=== PATIENT | female | born 1985 | race Two or more races ===

== ENCOUNTER 2020-05-24 13:34 | Outpatient (REF) | payer OTHER, SELFPAY ==
[2020-05-24 14:05] LABS: MANUAL DIFF FLAG NO
[2020-05-24 14:18] LABS: Basophils Absolute Auto 0.1 X10*3/uL (0.0-0.2); Basophils Percent Auto 0.6 % (0-2); Eosinophils Absolute Auto 0.1 X10*3/uL (0.0-0.4); Eosinophils Percent Auto 0.9 % (0-4); Hematocrit 39.4 % (37-47); Hemoglobin 12.3 g/dl (12.0-16.0); Imm Gran Abs Auto 0.03 X10*3/uL (0.00-0.03); Imm Gran Pct Auto 0.3 % (0.0-0.4); Lymphocytes Absolute Auto 2.9 X10*3/uL (1.2-4.9); Mean Corpuscular HGB Conc 31.2 g/dl (31.0-35.0); Mean Corpuscular Hemoglobin 26.9 pg (27.0-33.0); Mean Platelet Volume 9.9 fL (9.4-12.3); Monocytes Absolute Auto 0.6 X10*3/uL (0.1-1.2); Monocytes Percent Auto 6.3 % (2-11); Neutrophils Absolute Auto 5.7 X10*3/uL (2.0-8.3); Neutrophils Percent Auto 60.9 % (45-73); Platelet Count 313 X10*3/uL (160-400); Red Blood Count 4.58 X10*6/uL (4.20-5.50); Red Cell Distribution Width 12.9 % (11.0-16.0); White Blood Count 9.3 X10*3/uL (4.8-10.8)
[2020-05-24 14:53] LABS: Alanine Aminotransferase 9 U/L (0-31); Albumin Level 3.9 g/dL (3.5-5.0); Alkaline Phosphatase 64 U/L (39-117); Anion Gap 11 (12-20); Aspartate Amino Transferase 10 U/L (5-31); Bilirubin Total 0.3 mg/dL (0.0-1.0); Blood Urea Nitrogen 12 mg/dL (9-16); C Reactive Protein 2.23 mg/dL (< or = 0.50); Calcium 8.6 mg/dL (8.4-10.2); Carbon Dioxide 28 mmol/L (22-29); Chloride 103 mmol/L (96-108); Estimated Glomerular Filt Rate > 60; Glucose Random 110 mg/dL (60-115); Potassium 3.7 mmol/l (3.3-5.1); Sodium 138 mmol/L (135-145); Total Protein 7.7 g/dL (6.5-8.0)
== END 2020-05-24 13:35 | disposition home or self-care (01) ==
LOC: HO.LAB 13:34
PROVIDERS: PCP Internal Medicine; Visit Provider Student in an Organized Health Care Education/Training Program
DX: M05.9 Rheumatoid arthritis with rheumatoid factor, unspecified (principal); R76.8 Other specified abnormal immunological findings in serum
CPT/HCPCS: 36415; 80053; 85025; 86140

== ENCOUNTER → 2020-05-25 07:57 | Outpatient (BNVA) | payer OTHER, SELFPAY | PROVIDERS: PCP Internal Medicine; Referring Provider Internal Medicine; Visit Provider Student in an Organized Health Care Education/Training Program | DX: Z76.89 Persons encountering health services in other specified circumstances (principal) ==

== ENCOUNTER 2020-08-23 13:21 | Outpatient (REF) | payer OTHER, SELFPAY ==
[2020-08-23 14:25] LABS: MANUAL DIFF FLAG NO
[2020-08-23 14:32] LABS: Basophils Percent Auto 0.2 % (0-2); Eosinophils Percent Auto 0.4 % (0-4); Hematocrit 40.3 % (37-47); Hemoglobin 12.6 g/dl (12.0-16.0); Imm Gran Abs Auto 0.01 X10*3/uL (0.00-0.03); Imm Gran Pct Auto 0.2 % (0.0-0.4); Lymphocytes Absolute Auto 2.6 X10*3/uL (1.2-4.9); Lymphocytes Percent Auto 47.4 % (20-40); Mean Corpuscular HGB Conc 31.3 g/dl (31.0-35.0); Mean Corpuscular Hemoglobin 26.9 pg (27.0-33.0); Mean Corpuscular Volume 86.1 fL (80-98); Mean Platelet Volume 10.3 fL (9.4-12.3); Monocytes Absolute Auto 0.6 X10*3/uL (0.1-1.2); Monocytes Percent Auto 11.5 % (2-11); Neutrophils Absolute Auto 2.3 X10*3/uL (2.0-8.3); Neutrophils Percent Auto 40.3 % (45-73); Platelet Count 237 X10*3/uL (160-400); Red Blood Count 4.68 X10*6/uL (4.20-5.50); White Blood Count 5.6 X10*3/uL (4.8-10.8)
[2020-08-23 14:57] LABS: Alanine Aminotransferase 55 U/L (0-31); Albumin Level 3.9 g/dL (3.5-5.0); Alkaline Phosphatase 53 U/L (39-117); Anion Gap 11 (12-20); Aspartate Amino Transferase 51 U/L (5-31); Bilirubin Total 0.4 mg/dL (0.0-1.0); Blood Urea Nitrogen 12 mg/dL (9-16); C Reactive Protein 0.37 mg/dL (< or = 0.50); Calcium 8.2 mg/dL (8.4-10.2); Carbon Dioxide 28 mmol/L (22-29); Chloride 105 mmol/L (96-108); Estimated Glomerular Filt Rate > 60; Glucose Random 94 mg/dL (60-115); Potassium 3.7 mmol/L (3.3-5.1); Sodium 140 mmol/L (135-145); Total Protein 7.4 g/dL (6.5-8.0)
[2020-08-23 15:22] LABS: Erythrocyte Sedimentation Rate 16 MM/HR (0-20)
[2020-08-26 12:17] LABS: HCV Log PCR <1.18 NOT DETECTED Log IU/mL (NOT DETECTED); HepC Viral Load <15 NOT DETECTED IU/mL (NOT DETECTED)
== END 2020-08-23 13:22 | disposition home or self-care (01) ==
LOC: HO.LAB 13:21
PROVIDERS: PCP Internal Medicine; Visit Provider Student in an Organized Health Care Education/Training Program
DX: M05.9 Rheumatoid arthritis with rheumatoid factor, unspecified (principal)
CPT/HCPCS: 36415; 80053; 85025; 85652; 86140; 87522

== ENCOUNTER → 2020-08-24 07:48 | Outpatient (BNVA) | payer OTHER, SELFPAY | PROVIDERS: PCP Internal Medicine; Visit Provider Student in an Organized Health Care Education/Training Program | DX: M05.9 Rheumatoid arthritis with rheumatoid factor, unspecified (principal); R74.01 Elevation of levels of liver transaminase levels; R76.8 Other specified abnormal immunological findings in serum; Z79.899 Other long term (current) drug therapy | CPT/HCPCS: 99212 ==

== ENCOUNTER 2020-09-05 08:10 | Outpatient (REF) | payer OTHER, SELFPAY ==
--- NOTE | ~2020-09-05 | US_ITS ---
EXAMINATION: US ABDOMEN COMPLETE CLINICAL INFORMATION: Elevation of levels of liver transaminase levels. COMPARISON: Ultrasound abdomen complete dated 08/11/2019. TECHNIQUE: Real-time imaging of the abdominal viscera. FINDINGS: PANCREAS: The head and the body of pancreas is homogeneous in echotexture. The tail is obscured by overlying gas. ABDOMINAL AORTA: The proximal, mid, and distal segments are normal in caliber. INFERIOR VENA CAVA: Visualized portions are normal. LIVER: Liver is diffusely echogenic without any focal lesion. The liver is normal in size. The liver contour is normal. There is a right hepatic lobe calcification measuring 0.5 x 0.5 x 0.8 cm. No additional focal lesion seen. There is no intrahepatic biliary duct dilatation seen. GALLBLADDER: Surgically absent. COMMON BILE DUCT: Normal in caliber measuring 0.8 cm in diameter. RIGHT KIDNEY: Normal. No hydronephrosis. No renal calculi or focal parenchymal lesions. The kidney measures 11.9 cm in maximum dimension. LEFT KIDNEY: Normal. No hydronephrosis. No renal calculi or focal parenchymal lesions. The kidney measures 12.8 cm in maximum dimension. SPLEEN: Normal. The spleen measures 11.7 cm in maximum dimension. FREE FLUID: None. US/US abdomen complete IMPRESSION: Hepatic steatosis with right hepatic lobe calcification. The rest of the abdominal ultrasound is unremarkable. The gallbladder has been surgically removed.
== END 2020-09-05 08:11 | disposition home or self-care (01) ==
LOC: HO.US 08:10
PROVIDERS: Visit Provider Student in an Organized Health Care Education/Training Program
DX: R74.01 Elevation of levels of liver transaminase levels (principal)
CPT/HCPCS: 76700

== ENCOUNTER → 2020-10-17 08:06 | Outpatient (BNVA) | payer OTHER, SELFPAY | PROVIDERS: PCP Internal Medicine; Visit Provider Physician Assistant | DX: K76.0 Fatty (change of) liver, not elsewhere classified (principal); M06.9 Rheumatoid arthritis, unspecified | CPT/HCPCS: 99212 ==

== ENCOUNTER 2020-11-18 09:50 | Outpatient (REF) | payer OTHER, SELFPAY ==
[2020-11-18 10:41] LABS: MANUAL DIFF FLAG NO
[2020-11-18 10:46] LABS: Basophils Absolute Auto 0.1 X10*3/uL (0.0-0.2); Basophils Percent Auto 0.5 % (0-2); Eosinophils Absolute Auto 0.1 X10*3/uL (0.0-0.4); Eosinophils Percent Auto 1.1 % (0-4); Hematocrit 39.9 % (37-47); Hemoglobin 12.8 g/dl (12.0-16.0); Imm Gran Abs Auto 0.03 X10*3/uL (0.00-0.03); Imm Gran Pct Auto 0.3 % (0.0-0.4); Lymphocytes Absolute Auto 3.3 X10*3/uL (1.2-4.9); Mean Corpuscular HGB Conc 32.1 g/dl (31.0-35.0); Mean Corpuscular Hemoglobin 27.6 pg (27.0-33.0); Mean Corpuscular Volume 86.2 fL (80-98); Monocytes Absolute Auto 0.7 X10*3/uL (0.1-1.2); Monocytes Percent Auto 7.3 % (2-11); Neutrophils Percent Auto 54.8 % (45-73); Platelet Count 310 X10*3/uL (160-400); Red Blood Count 4.63 X10*6/uL (4.20-5.50); Red Cell Distribution Width 12.5 % (11.0-16.0); White Blood Count 9.2 X10*3/uL (4.8-10.8)
[2020-11-18 10:53] LABS: Estimated Average Glucose 103 mg/dL; Hemoglobin A1c % 5.2 %
[2020-11-18 11:03] LABS: Alanine Aminotransferase 15 U/L (0-31); Alkaline Phosphatase 60 U/L (39-117); Anion Gap 11 (12-20); Aspartate Amino Transferase 12 U/L (5-31); Bilirubin Total 0.2 mg/dL (0.0-1.0); Blood Urea Nitrogen 19 mg/dL (9-16); C Reactive Protein 1.19 mg/dL (< or = 0.50); Carbon Dioxide 26 mmol/L (22-29); Chloride 106 mmol/L (96-108); Estimated Glomerular Filt Rate > 60; Glucose Random 95 mg/dL (60-115); Potassium 3.8 mmol/L (3.3-5.1); Sodium 139 mmol/L (135-145); Total Protein 7.7 g/dL (6.5-8.0)
[2020-11-18 11:06] LABS: Alanine Aminotransferase 14 U/L (0-31); Alkaline Phosphatase 58 U/L (39-117); Aspartate Amino Transferase 12 U/L (5-31); Bilirubin Direct < 0.2 mg/dL (0.0-0.5); Bilirubin Total 0.2 mg/dL (0.0-1.0); Cholesterol 162 mg/dL; HDL Cholesterol 53 mg/dL; LDL Cholesterol Calculated 99 mg/dl; Total Protein 7.7 g/dL (6.5-8.0); Triglycerides 50 mg/dL
[2020-11-18 11:26] LABS: TSH reflex Free T4 0.84 uIU/mL (0.32-4.0)
[2020-11-18 11:28] LABS: Thyroid Stimulating Hormone 0.73 uIU/mL (0.32-4.0)
[2020-11-18 11:42] LABS: Erythrocyte Sedimentation Rate 25 MM/HR (0-20)
[2020-11-19 09:25] LABS: Insulin Level Total 23.2 uIU/mL
[2020-11-23 13:41] LABS: Vitamin D 25-OH, D2 <4 ng/mL; Vitamin D 25-OH, D3 13 ng/mL; Vitamin D 25-OH, Total 13 ng/mL (30-100)
[2020-11-23 19:17] LABS: Parathyroid Hormone Related Pr 13 pg/mL (14-27)
[2020-11-24 11:22] LABS: Smooth Muscle Antibody 23 U (<20)
== END 2020-11-18 09:51 | disposition home or self-care (01) ==
LOC: HO.LAB 09:50
PROVIDERS: Absent Provider Student in an Organized Health Care Education/Training Program; PCP Internal Medicine; Visit Provider Physician Assistant
DX: R10.11 Right upper quadrant pain (principal); E83.51 Hypocalcemia; M05.9 Rheumatoid arthritis with rheumatoid factor, unspecified; E66.9 Obesity, unspecified; K76.0 Fatty (change of) liver, not elsewhere classified; K59.09 Other constipation; R74.8 Abnormal levels of other serum enzymes
CPT/HCPCS: 36415; 80053; 80061; 80076; 82248; 82306; 82330; 83036; 83519; 83525; 84443; 85025; 85652; 86140; 86255

== ENCOUNTER → 2020-11-24 12:02 | Outpatient (BNVA) | payer OTHER, SELFPAY | PROVIDERS: PCP Internal Medicine; Visit Provider Physician Assistant | DX: K76.0 Fatty (change of) liver, not elsewhere classified (principal) | CPT/HCPCS: 99212 ==

== ENCOUNTER → 2020-12-27 10:50 | Outpatient (BNVA) | payer OTHER, SELFPAY | PROVIDERS: Referring Provider Internal Medicine; Visit Provider Physician Assistant | DX: Z23 Encounter for immunization (principal) | CPT/HCPCS: 90471; 90746 ==

== ENCOUNTER → 2021-01-11 12:50 | Outpatient (BNVA) | payer OTHER, SELFPAY | PROVIDERS: PCP Internal Medicine; Visit Provider Student in an Organized Health Care Education/Training Program ==

== ENCOUNTER 2021-04-05 14:14 | Outpatient (REF) | payer OTHER, SELFPAY ==
[2021-04-05 15:15] LABS: MANUAL DIFF FLAG NO
[2021-04-05 15:25] LABS: Basophils Absolute Auto 0.1 X10*3/uL (0.0-0.2); Basophils Percent Auto 0.5 % (0-2); Eosinophils Absolute Auto 0.1 X10*3/uL (0.0-0.4); Eosinophils Percent Auto 0.5 % (0-4); Hematocrit 38.9 % (37-47); Hemoglobin 12.4 g/dl (12.0-16.0); Imm Gran Abs Auto 0.03 X10*3/uL (0.00-0.03); Imm Gran Pct Auto 0.3 % (0.0-0.4); Lymphocytes Absolute Auto 3.4 X10*3/uL (1.2-4.9); Lymphocytes Percent Auto 32.5 % (20-40); Mean Corpuscular HGB Conc 31.9 g/dl (31.0-35.0); Mean Corpuscular Volume 84.6 fL (80-98); Mean Platelet Volume 9.7 fL (9.4-12.3); Monocytes Absolute Auto 0.8 X10*3/uL (0.1-1.2); Monocytes Percent Auto 7.6 % (2-11); Neutrophils Absolute Auto 6.1 X10*3/uL (2.0-8.3); Neutrophils Percent Auto 58.6 % (45-73); Platelet Count 309 X10*3/uL (160-400); Red Cell Distribution Width 12.7 % (11.0-16.0); White Blood Count 10.3 X10*3/uL (4.8-10.8)
[2021-04-05 15:49] LABS: Alanine Aminotransferase 16 U/L (0-31); Albumin Level 3.9 g/dL (3.5-5.0); Alkaline Phosphatase 64 U/L (39-117); Anion Gap 12 (12-20); Aspartate Amino Transferase 15 U/L (5-31); Bilirubin Total 0.4 mg/dL (0.0-1.0); Blood Urea Nitrogen 12 mg/dL (9-16); C Reactive Protein 3.13 mg/dL (< or = 0.50); Calcium 9.2 mg/dL (8.4-10.2); Carbon Dioxide 25 mmol/L (22-29); Chloride 103 mmol/L (96-108); Estimated Glomerular Filt Rate > 60; Glucose Random 92 mg/dL (60-115); Potassium 3.9 mmol/L (3.3-5.1); Sodium 136 mmol/L (135-145); Total Protein 7.8 g/dL (6.5-8.0)
[2021-04-05 16:03] LABS: Erythrocyte Sedimentation Rate 45 MM/HR (0-20)
[2021-04-06 16:42] LABS: Calcium (PTHI) 9.1 mg/dL (8.6-10.2); PTHI 61 pg/mL (14-64)
[2021-04-07 14:37] LABS: Calcium, Ionized 4.8 mg/dL (4.8-5.6)
[2021-04-10 12:41] LABS: Vitamin D 25-OH, D2 12 ng/mL; Vitamin D 25-OH, D3 15 ng/mL; Vitamin D 25-OH, Total 27 ng/mL (30-100)
[2021-04-10 14:37] LABS: Mitochondrial Antibodies NEGATIVE (NEGATIVE)
== END 2021-04-05 14:15 | disposition home or self-care (01) ==
LOC: HO.LAB 14:14
PROVIDERS: Physician Assistant; PCP Internal Medicine; Visit Provider Nurse Practitioner Family
DX: E55.9 Vitamin D deficiency, unspecified (principal); E20.9 Hypoparathyroidism, unspecified; R74.01 Elevation of levels of liver transaminase levels; M05.9 Rheumatoid arthritis with rheumatoid factor, unspecified
CPT/HCPCS: 36415; 80053; 82306; 82330; 83970; 85025; 85652; 86140; 86255; 86256; 99212

== ENCOUNTER 2021-04-18 08:53 | Outpatient (REF) | payer OTHER, SELFPAY ==
[2021-04-18 10:37] LABS: Alanine Aminotransferase 15 U/L (0-31); Albumin Level 3.9 g/dL (3.5-5.0); Alkaline Phosphatase 64 U/L (39-117); Anion Gap 12 (12-20); Aspartate Amino Transferase 15 U/L (5-31); Bilirubin Total 0.3 mg/dL (0.0-1.0); Blood Urea Nitrogen 12 mg/dL (9-16); Calcium 8.8 mg/dL (8.4-10.2); Carbon Dioxide 24 mmol/L (22-29); Chloride 106 mmol/L (96-108); Estimated Glomerular Filt Rate > 60; Glucose Random 96 mg/dL (60-115); Potassium 4.1 mmol/L (3.3-5.1); Sodium 138 mmol/L (135-145); Total Protein 7.6 g/dL (6.5-8.0)
[2021-04-18 10:58] LABS: HBS Num1 184.12 mIU/mL (0-7.99); HBsAGNum1 0.15 S/CO (0.00-0.99); Hepatitis B Core Antibody Nonreactive (Nonreactive); Hepatitis B Surface Antigen Negative (Negative); ~Hepatitis B Surface Antibody REACTIVE (Nonreactive)
[2021-04-18 11:22] LABS: ~HepC Num1 1.23 S/CO (0.00-0.79); ~Hepatitis C Antibody Reactive (Nonreactive)
[2021-04-19 08:31] LABS: Hepatitis A Antibody IgM 0.18 Index (0-0.79); ~Hepatitis A Antibody IgM Nonreactive (Nonreactive)
[2021-04-20 16:00] LABS: TS Negative Control Passed; TS Panel A 0; TS Panel B 0; TS Positive Control Passed; TSpotTB Negative (Negative)
[2021-04-21 11:46] LABS: HCV Log PCR <1.18 NOT DETECTED Log IU/mL (NOT DETECTED); HepC Viral Load <15 NOT DETECTED IU/mL (NOT DETECTED)
== END 2021-04-18 08:54 | disposition home or self-care (01) ==
LOC: HO.LAB 08:53
PROVIDERS: Student in an Organized Health Care Education/Training Program; PCP Internal Medicine; Visit Provider Nurse Practitioner Family
DX: M05.9 Rheumatoid arthritis with rheumatoid factor, unspecified (principal)
CPT/HCPCS: 36415; 80053; 86481; 86704; 86706; 86709; 86803; 87340; 87522

== ENCOUNTER → 2021-04-21 12:31 | Outpatient (BNVA) | payer MEDICAID, SELFPAY | PROVIDERS: PCP Internal Medicine; Visit Provider Physician Assistant Surgical ==

== ENCOUNTER → 2021-04-21 12:40 | Outpatient (BNVA) | payer OTHER, SELFPAY | PROVIDERS: PCP Internal Medicine; Referring Provider Internal Medicine; Visit Provider Surgery ==

== ENCOUNTER → 2021-05-01 07:55 | Outpatient (BNVA) | payer OTHER, SELFPAY | PROVIDERS: PCP Internal Medicine; Visit Provider Surgery ==

== ENCOUNTER 2021-05-03 08:03 | Outpatient (REF) | payer OTHER, SELFPAY ==
[2021-05-03 08:19] LABS: MANUAL DIFF FLAG NO
[2021-05-03 08:28] LABS: Basophils Absolute Auto 0.1 X10*3/uL (0.0-0.2); Basophils Percent Auto 0.6 % (0-2); Eosinophils Absolute Auto 0.1 X10*3/uL (0.0-0.4); Eosinophils Percent Auto 1.3 % (0-4); Hematocrit 36.7 % (37.0-47.0); Hemoglobin 11.8 g/dl (12.0-16.0); Imm Gran Abs Auto 0.02 X10*3/uL (0.00-0.03); Imm Gran Pct Auto 0.2 % (0.0-0.4); Lymphocytes Absolute Auto 3.7 X10*3/uL (1.2-4.9); Mean Corpuscular HGB Conc 32.2 g/dl (31.0-35.0); Mean Corpuscular Hemoglobin 27.1 pg (27.0-33.0); Mean Corpuscular Volume 84.2 fL (80.0-98.0); Mean Platelet Volume 10.1 fL (9.4-12.3); Monocytes Absolute Auto 0.7 X10*3/uL (0.1-1.2); Monocytes Percent Auto 6.9 % (2-11); Neutrophils Absolute Auto 5.2 x10*3/uL (2.0-8.3); Platelet Count 316 X10*3/uL (160-400); Red Blood Count 4.36 X10*6/uL (4.20-5.50); White Blood Count 9.8 X10*3/uL (4.8-10.8)
[2021-05-03 08:50] LABS: Alanine Aminotransferase 17 U/L (0-31); Albumin Level 3.7 g/dL (3.5-5.0); Alkaline Phosphatase 61 U/L (39-117); Anion Gap 9 (12-20); Aspartate Amino Transferase 12 U/L (5-31); Bilirubin Total 0.3 mg/dL (0.0-1.0); Blood Urea Nitrogen 13 mg/dL (9-16); C Reactive Protein 2.64 mg/dL (< or = 0.50); Calcium 8.6 mg/dL (8.4-10.2); Carbon Dioxide 28 mmol/L (22-29); Chloride 105 mmol/L (96-108); Cholesterol 149 mg/dL; Estimated Glomerular Filt Rate > 60; Glucose Random 100 mg/dL (60-115); HDL Cholesterol 41 mg/dL; Iron 37 mcg/dL (30-160); LDL Cholesterol Calculated 96 mg/dl; Percent Iron Saturation 11 % (15-50); Potassium 3.8 mmol/L (3.3-5.1); Sodium 138 mmol/L (135-145); Total Iron Binding Capacity 322 mcg/dL (228-428); Total Protein 7.2 g/dL (6.5-8.0); Triglycerides 63 mg/dL; Unsaturated Iron Binding 285 ug/dL
[2021-05-03 08:56] LABS: Estimated Average Glucose 105 mg/dL; Hemoglobin A1c % 5.3 %
[2021-05-03 09:13] LABS: Ferritin 73 ng/mL (10-122); Insulin 33 uU/mL (2-29); TSH reflex Free T4 0.94 uIU/mL (0.32-4.0); Vitamin D 25-OH Total 12.8 ng/mL (>30)
[2021-05-03 09:40] LABS: Folate 7.8 ng/mL (> or = 4.0); Vitamin B12 528 pg/mL (200-900)
[2021-05-04 15:41] LABS: Calcium (PTHI) 8.7 mg/dL (8.6-10.2); PTHI 78 pg/mL (14-64)
[2021-05-06 14:05] LABS: Zinc 58 mcg/dL (60-130)
[2021-05-08 00:51] LABS: Vitamin A 29 mcg/dL (38-98)
[2021-05-08 06:12] LABS: Vitamin B1 7 nmol/L (8-30)
== END 2021-05-03 08:04 | disposition home or self-care (01) ==
LOC: HO.LAB 08:03
PROVIDERS: PCP Internal Medicine; Visit Provider Surgery
DX: E66.01 Morbid (severe) obesity due to excess calories (principal); E83.51 Hypocalcemia; I10 Essential (primary) hypertension; K21.9 Gastro-esophageal reflux disease without esophagitis; K76.0 Fatty (change of) liver, not elsewhere classified
CPT/HCPCS: 36415; 80053; 80061; 82306; 82607; 82728; 82746; 83036; 83525; 83540; 83970; 84425; 84443; 84590; 84630; 85025; 86140

== ENCOUNTER 2021-05-12 11:56 | Outpatient (REF) | payer OTHER, SELFPAY ==
--- NOTE | ~2021-05-12 | XR_ITS ---
EXAMINATION: XR CHEST CLINICAL INFORMATION: Morbid obesity. COMPARISON: None TECHNIQUE: 2 views of the chest were obtained. FINDINGS: No significant abnormality is noted involving the heart, lungs, mediastinum, bony thorax or soft tissues. XR/XR chest 2V IMPRESSION: Unremarkable examination.
--- NOTE | 2021-05-12 12:00 | ECG_ITS ---
Test Reason : E66.01 Blood Pressure : / mmHG Vent. Rate : 075 BPM Atrial Rate : 075 BPM P-R Int : 118 ms QRS Dur : 088 ms QT Int : 376 ms P-R-T Axes : 023 036 000 degrees QTc Int : 419 ms Normal sinus rhythm Nonspecific ST abnormality Abnormal ECG No previous ECGs available Referred By: Arian Franklin Electronically Signed By:ELADIO MORAN MD
== END 2021-05-12 11:57 | disposition home or self-care (01) ==
LOC: HO.XRAY 11:56
PROVIDERS: PCP Internal Medicine; Visit Provider Surgery
DX: E66.01 Morbid (severe) obesity due to excess calories (principal); I10 Essential (primary) hypertension; K21.9 Gastro-esophageal reflux disease without esophagitis; K76.0 Fatty (change of) liver, not elsewhere classified; E55.9 Vitamin D deficiency, unspecified; E83.51 Hypocalcemia
CPT/HCPCS: 71046; 93005

== ENCOUNTER → 2021-05-22 10:37 | Outpatient (BNVA) | payer OTHER, SELFPAY | PROVIDERS: PCP Internal Medicine; Referring Provider Internal Medicine; Visit Provider Physician Assistant Surgical | DX: Z11.0 Encounter for screening for intestinal infectious diseases (principal) | CPT/HCPCS: 99211 ==

== ENCOUNTER 2021-05-24 14:10 | Outpatient (REF) | payer OTHER, SELFPAY ==
[2021-05-25 10:12] LABS: H Pylori Breath Test Positive (Negative)
== END 2021-05-24 14:11 | disposition home or self-care (01) ==
LOC: HO.LNP 14:10
PROVIDERS: Visit Provider Surgery
DX: E83.51 Hypocalcemia (principal); I10 Essential (primary) hypertension; K21.9 Gastro-esophageal reflux disease without esophagitis; K76.0 Fatty (change of) liver, not elsewhere classified; E66.01 Morbid (severe) obesity due to excess calories
CPT/HCPCS: 83013

== ENCOUNTER → 2021-05-25 08:03 | Outpatient (BNVA) | payer OTHER, SELFPAY | PROVIDERS: PCP Internal Medicine; Visit Provider Dietitian, Registered | DX: E66.9 Obesity, unspecified (principal) | CPT/HCPCS: 97802 ==

== ENCOUNTER → 2021-05-31 08:07 | Outpatient (BNVA) | payer OTHER, SELFPAY | PROVIDERS: PCP Internal Medicine; Visit Provider Surgery ==

== ENCOUNTER 2021-06-21 08:41 | Outpatient (REF) | payer OTHER, SELFPAY ==
--- NOTE | ~2021-06-21 | FL_ITS ---
EXAMINATION: XR GI SERIES CLINICAL INFORMATION: Morbid obesity COMPARISON: None TECHNIQUE: Air-contrast upper GI examination FINDINGS: There was normal apposition of the focal cords while saying E. There is normal elevation of the soft palate while saying candy. Patient swallowed thin and thick barium without difficulty. No evidence of nasopharyngeal reflux or tracheal aspiration. No Zenker's diverticulum or significant cricopharyngeal hypertrophy. There is normal esophageal motility without persistent stricture or mucosal abnormality. No hiatal hernia was identified. No gastroesophageal reflux was elicited during the study including with water siphon test. The stomach demonstrates normal distensibility without evidence of abnormal mass or ulceration. There was no delay in gastric emptying. The duodenal bulb and sweep appeared unremarkable. FLUOROSCOPY TIME: 1.8minutes DOSE AREA PRODUCT: 18.403 Gy-cm2 (tee-centimeter squared) FL/FL upper GI series IMPRESSION: Normal air-contrast upper GI examination
--- NOTE | ~2021-06-21 | US_ITS ---
EXAMINATION: US COMPLETE ABDOMEN WITH LIVER ELASTOGRAPHY CLINICAL INFORMATION: Obesity COMPARISON: None. TECHNIQUE: Real-time imaging of the abdominal viscera. Noninvasive ultrasound liver fibrosis assessment is performed using Rob ElastPQ point quantification shear wave elastography (pSWE) with a C5-2 MHz transducer. Multiple elastography samples are obtained. FINDINGS: PANCREAS: Normal. The visualized pancreatic head and body are normal in appearance. The remainder of the pancreas is obscured from visualization by the overlying bowel gas. ABDOMINAL AORTA: The proximal, middle, and distal aortic segments are normal in caliber. INFERIOR VENA CAVA: Visualized portions are normal. LIVER: The liver demonstrates increased size, contour and increased echogenicity. No focal lesion or intrahepatic biliary duct dilatation. There are multiple small calcifications in the liver. The right lobe measures 20.8 cm in length. The left lobe measures 13.0 cm in length. Portal flow is towards the liver (hepatopetal). Shear wave liver elastography median stiffness is 1.75 m/s (reference: normal median stiffness is 1.3 m/s or less). IQR/median stiffness to assess sampling precision is 0.24 (reference: good quality data set is IQR/median stiffness of 0.15 or less). GALLBLADDER: Prior cholecystectomy COMMON BILE DUCT: Normal in caliber measuring 0.8 cm.. RIGHT KIDNEY: Normal. No hydronephrosis. No renal calculi or focal parenchymal lesions. The kidney measures 12.3 cm in maximum dimension. LEFT KIDNEY: Normal. No hydronephrosis. No renal calculi or focal parenchymal lesions. The kidney measures 13.1 cm in maximum dimension. SPLEEN: Normal. The spleen measures 11.0 cm in maximum dimension. FREE FLUID: None. US/US abdomen comp w elastography IMPRESSION: 1. Hepatomegaly and hepatic steatosis. 2. Multiple calcifications in the liver may be from prior granulomatous disease or infection. 2. Liver elastography: Although measurements are suggestive of compensated advanced chronic liver disease, there is statistical variability of the sampling which decreases accuracy. REFERENCE: Society of Radiologists in Ultrasound Liver Stiffness Thresholds (2019): LIVER STIFFNESS THRESHOLDS: *Liver Stiffness equal or less than 1.3 m/s: High probability of being normal. *Liver Stiffness less than 1.7 m/s: In the absence of other known clinical signs, rules out compensated advanced chronic liver disease. *Liver Stiffness 1.7-2.1 m/s: Suggestive of compensated advanced chronic liver disease but need further test for confirmation. *Liver Stiffness over 2.1 m/s: Rules in compensated advanced chronic liver disease. *Liver Stiffness over 2.4 m/s: Suggestive of clinically significant portal hypertension. QUALITY OF DATA SET: *IQR/Median value equal or less than 0.15 implies a quality data set. *IQR/Median value over 0.15 implies a poor quality data set. SIGNIFICANT CHANGE FROM PRIOR EXAM: Significant change if liver stiffness measurement is 10% or greater from prior exam. OTHER CONSIDERATIONS: The stage of liver fibrosis may be overestimated in the setting of acute hepatitis, liver inflammation, elevated liver function tests, hepatic vascular congestion, obstructive cholestasis, non-fasting state, and infiltrative diseases such as amyloidosis and lymphoma. In some patients with NAFLD, the liver stiffness thresholds for compensated advanced chronic liver disease may be lower. In causes other than viral hepatitis and NAFLD, liver stiffness thresholds are not well established.
== END 2021-06-21 08:42 | disposition home or self-care (01) ==
LOC: HO.US 08:41
PROVIDERS: PCP Internal Medicine; Visit Provider Surgery
DX: E66.01 Morbid (severe) obesity due to excess calories (principal); I10 Essential (primary) hypertension; K21.9 Gastro-esophageal reflux disease without esophagitis; K76.0 Fatty (change of) liver, not elsewhere classified; E55.9 Vitamin D deficiency, unspecified; E83.51 Hypocalcemia
CPT/HCPCS: 74240; 76705; 76981

== ENCOUNTER → 2021-06-26 07:52 | Outpatient (BNVA) | payer OTHER, SELFPAY | PROVIDERS: PCP Internal Medicine; Visit Provider Surgery ==

== ENCOUNTER → 2021-06-29 08:14 | Outpatient (BNVA) | payer OTHER, SELFPAY | PROVIDERS: PCP Internal Medicine; Referring Provider Surgery; Visit Provider Dietitian, Registered | DX: E66.9 Obesity, unspecified (principal); Z68.35 Body mass index [BMI] 35.0-35.9, adult | CPT/HCPCS: 97803 ==

== ENCOUNTER → 2021-06-30 07:58 | Outpatient (REF) | payer OTHER, SELFPAY ==
--- NOTE | 2021-06-30 08:02 | CA_ITS ---
Transthoracic Echocardiogram Patient (Last, First, Middle): Irais Sanders E Gender: Female Date of : 1985 Age: 36 Procedure Date: 06/30/2021 Procedure Type: Transthoracic Echocardiogram Location: OP Height: 165.1 cm Weight: 112.95 kg BSA: 2.17 m2 Heart Rate: bpm BP: 115 / 80 mmHg Drapery Hanger: CHEMA Referring MD: Arian Franklin MD Pharmacy Helper: Norbert Fry MD Symptoms: R94.31 - Abnormal electrocardiogram [ECG] [EKG] Study Quality: Technically Difficult/contrast ECG Rhythm: Sinus Conclusions: - Essentially normal study Findings Left Ventricle Normal left ventricular size, thickness, and systolic function. The visually estimated ejection fraction is between 65-70%. There is no evidence of regional wall motion abnormalities. Spectral Doppler is indicative of a normal filling pattern. Right Ventricle Normal right ventricular cavity size and systolic function. Atria Both atria are normal in size. There is no evidence of interatrial shunt. Aortic Valve The aortic valve structure and function is likely normal. There is no aortic valve stenosis. There is no aortic valve regurgitation. Mitral Valve Normal mitral valve structure and function. There is trace mitral valve regurgitation. There is no mitral valve stenosis. Pulmonic Valve The pulmonic valve was not well visualized. Tricuspid Valve Likely normal tricuspid valve structure and function. There is trace tricuspid valve regurgitation. The right ventricular systolic pressure is normal. The right ventricular systolic pressure is 26 mmHg. Normal right atrial pressure. There is no evidence of pulmonary hypertension. Great Vessels All visible segments of the aorta are normal in size. The pulmonary artery was not well visualized. Venous The inferior vena cava is normal in size and collapses greater than 50% with inspiration. Pericardium/Pleural There is no evidence of pericardial effusion. Prior Study Comparison No prior study available for comparison. Measurements 2D Linear Measurements IVSd: 0.89 0.6-0.9/0.6-1.0 cm LVIDd: 5.13 3.9-5.3/4.2-5.9 cm LVIDd Index: 2.36 2.4-3.2/2.2-3.1 cm/m2 LVIDs: 3.65 2.0-3.6 cm LVPWd: 0.94 0.7-1.1 cm Ao Root: 2.80 2.1-3.5 cm LA Diam: 3.70 2.7-3.8/3.0-4.0 cm LAIDs Index: 1.71 1.5-2.3 cm/m2 LV Mass: 209.63 67-162/88-224 g LV Mass Index: 96.60 43-95/49-115 g/m2 LVOT Diam: 2.10 3.0+(-)1.3 cm 2D Systolic Function EF 4C: 70.00 >55% EF 2C: 72.10 >55% EF BiP: 71.60 >55% Mitral Valve MV Pk E: 0.95 MV PK A: 0.86 MV Decel Time: 154.00 E/A: 1.10 E'Lateral: 10.70 E'Medial: 7.40 E/E' Med: 12.80 E/E' Lat: 8.90 PHT: 45.00 MVA PHT: 4.89 Decel Garza: 6.16 Aortic Valve AoV Pk Toby: 1.29 AoV Mn Toby: 0.90 AoV VTI: 0.28 AoV Pk Grad: 7.00 Aov Mn Grad: 4.00 LEONOR Cont.VTI: 2.70 LVOT LVOT Pk Toby: 1.02 LVOT Mn Toby: 0.72 LVOT VTI: 0.22 LVOT Pk Grad: 4.00 LVOT Mn Grad: 2.00 LVOT Diam: 2.10 LVOT Area: 3.46 Diastolic Function MV Pk E: 0.95 MV Pk A: 0.86 E/A: 1.10 E'Medial: 7.40 E/E' Med: 12.80 E' Laterial: 10.70 E/E' Lat: 8.90 Right Ventricle TAPSE (mm): 22.80 TVS' Toby: 12.00 Tricuspid Valve TR Pk Toby: 2.41 TR Pk Grad: 23.00 RA Press: 3.00 RVSP: 26.00 Great Vessels Aorta Ao Root-2D: 2.80 2.0-3.7 cm Ao Asc: 2.80 2.1-3.4 cm Ao Arch: 2.80 Updated in Other Vendor System with Status of Final Norbert Fry MD electronically signed on 06/30/2021 2:44:53 PM with status of Final
--- NOTE | 2021-06-30 08:02 | CA_ITS ---
Acquisition Time: 2021-06-30 09:26:41 Total Exercise Time: 00:06:00 Test Indications: ABN EKG Medications: SEE CHART Protocol: THAIS Max HR: 181 BPM 99% of Pred: 182 BPM Max BP: 200/090 mmHG Max Work Load: 7.0 METS Exercise stress test with exercise 6 min of Thais protocol, without anginal symptoms, without arrythmia, with normotensive response to exercise, with slight downslope of ST lead III at baseline, with downsope ST lead III at peak exercise and scooping ST segments inferior and far lateral leads noted in recovery which is nonspecific. EKG tracings and report reviewed with Dr Fry. Message sent to Dr Prather with results and recommendation for a stress echo for further evaluation. Referred By: Arian Franklin Overread By: BILL MULLINS
== END ==
LOC: HO.CARD 07:58
PROVIDERS: Visit Provider Surgery
DX: R94.31 Abnormal electrocardiogram [ECG] [EKG] (principal)
CPT/HCPCS: 93017; 93306; Q9957

== ENCOUNTER 2021-07-05 07:39 | Outpatient (REF) | payer OTHER, SELFPAY ==
[2021-07-06 14:49] LABS: H Pylori Breath Test Negative (Negative)
== END 2021-07-05 07:40 | disposition home or self-care (01) ==
LOC: HO.LNP 07:39
PROVIDERS: Physician Assistant Surgical; PCP Internal Medicine; Referring Provider Internal Medicine; Visit Provider Surgery
DX: Z01.818 Encounter for other preprocedural examination (principal)
CPT/HCPCS: 83013; 99211

== ENCOUNTER → 2021-07-06 08:48 | Outpatient (BNVA) | payer OTHER, SELFPAY | PROVIDERS: PCP Internal Medicine; Visit Provider Nurse Practitioner Family | DX: M05.9 Rheumatoid arthritis with rheumatoid factor, unspecified (principal); R74.01 Elevation of levels of liver transaminase levels | CPT/HCPCS: 99212 ==

== ENCOUNTER → 2021-07-26 08:08 | Outpatient (BNVA) | payer OTHER, SELFPAY | PROVIDERS: PCP Internal Medicine; Visit Provider Surgery | DX: Z13.89 Encounter for screening for other disorder (principal) | CPT/HCPCS: 99212 ==

== ENCOUNTER → 2021-07-28 10:44 | Outpatient (REF) | payer OTHER, SELFPAY ==
--- NOTE | 2021-07-28 10:50 | CA_ITS ---
Acquisition Time: 2021-07-28 11:18:16 Total Exercise Time: 00:06:16 Test Indications: HTN, ABN ETT Medications: SEE CHART Protocol: THAIS Max HR: 181 BPM 99% of Pred: 182 BPM Max BP: 172/086 mmHG Max Work Load: 7.4 METS Exercise stress test with exercise 6 min 16 sec of Thais protocol, without anginal symptoms, without arrythmia, with normotensive response to exercise, with downsloping ST segements lead III, aVF at baseline and during test, with scooping ST segments inferiorly and V5-V6 later in recovery - nonspecific. Echo images obtained by Ciplex at rest and immediately post peak exercise. Definity contrast used. Test reviewed with Dr Sampson. Referred By: Arian Franklin Overread By: BILL MULLINS
== END ==
LOC: HO.CARD 10:44
PROVIDERS: Visit Provider Surgery
DX: R94.39 Abnormal result of other cardiovascular function study (principal)
CPT/HCPCS: 93350; Q9957

== ENCOUNTER → 2021-08-25 08:19 | Outpatient (BNVA) | payer OTHER, SELFPAY | PROVIDERS: PCP Internal Medicine; Visit Provider Surgery ==

== ENCOUNTER 2021-08-26 08:50 | Outpatient (REF) | payer OTHER, SELFPAY ==
[2021-08-26 10:08] LABS: Erythrocyte Sedimentation Rate 53 MM/HR (0-20)
[2021-08-28 13:35] LABS: Calcium (PTHI) 8.7 mg/dL (8.6-10.2); PTHI 43 pg/mL (14-64)
[2021-08-30 02:46] LABS: Vitamin D 25-OH, D2 <4 ng/mL; Vitamin D 25-OH, D3 14 ng/mL; Vitamin D 25-OH, Total 14 ng/mL (30-100)
== END 2021-08-26 08:51 | disposition home or self-care (01) ==
LOC: HO.LAB 08:50
PROVIDERS: Absent Provider Internal Medicine; PCP Internal Medicine; Visit Provider Nurse Practitioner Family
DX: M05.9 Rheumatoid arthritis with rheumatoid factor, unspecified (principal); E21.3 Hyperparathyroidism, unspecified; E66.9 Obesity, unspecified; E20.9 Hypoparathyroidism, unspecified; I10 Essential (primary) hypertension; K21.9 Gastro-esophageal reflux disease without esophagitis; E55.9 Vitamin D deficiency, unspecified; Z68.34 Body mass index [BMI] 34.0-34.9, adult
CPT/HCPCS: 36415; 82306; 82330; 83970; 85652

== ENCOUNTER 2021-08-31 10:58 | Inpatient (IN) | payer OTHER, SELFPAY ==
[2021-08-23 14:31] VITALS: BMI 39.1
[2021-08-26 09:17] LABS: MANUAL DIFF FLAG NO
[2021-08-26 09:25] LABS: Basophils Absolute Auto 0.1 X10*3/uL (0.0-0.2); Basophils Percent Auto 0.5 % (0-2); Eosinophils Absolute Auto 0.1 X10*3/uL (0.0-0.4); Eosinophils Percent Auto 1.1 % (0-4); Hematocrit 39.5 % (37.0-47.0); Hemoglobin 12.4 g/dl (12.0-16.0); Imm Gran Abs Auto 0.02 X10*3/uL (0.00-0.03); Imm Gran Pct Auto 0.2 % (0.0-0.4); Lymphocytes Percent Auto 32.7 % (20-40); Mean Corpuscular HGB Conc 31.4 g/dl (31.0-35.0); Mean Corpuscular Hemoglobin 27.1 pg (27.0-33.0); Mean Corpuscular Volume 86.2 fL (80.0-98.0); Mean Platelet Volume 10.2 fL (9.4-12.3); Monocytes Absolute Auto 0.6 X10*3/uL (0.1-1.2); Monocytes Percent Auto 6.7 % (2-11); Neutrophils Absolute Auto 5.4 x10*3/uL (2.0-8.3); Neutrophils Percent Auto 58.8 % (45-73); Platelet Count 315 X10*3/uL (160-400); Red Blood Count 4.58 X10*6/uL (4.20-5.50); Red Cell Distribution Width 13.1 % (11.0-16.0); White Blood Count 9.1 X10*3/uL (4.8-10.8)
[2021-08-26 09:29] LABS: Estimated Average Glucose 108 mg/dL; Hemoglobin A1c % 5.4 %; INTERNATIONAL NORM RATIO 1.1 (0.9-1.1); Prothrombin Time 12.8 SEC (9.9-13.0)
[2021-08-26 09:32] LABS: Partial Thromboplastin Time 33.1 SEC (24.1-38.0)
[2021-08-26 09:51] LABS: Alanine Aminotransferase 11 U/L (0-31); Albumin Level 3.7 g/dL (3.5-5.0); Alkaline Phosphatase 59 U/L (39-117); Anion Gap 10 (12-20); Aspartate Amino Transferase 11 U/L (5-31); Bilirubin Total 0.4 mg/dL (0.0-1.0); Blood Urea Nitrogen 13 mg/dL (9-16); C Reactive Protein 5.13 mg/dL (< or = 0.50); Carbon Dioxide 29 mmol/L (22-29); Chloride 105 mmol/L (96-108); Cholesterol 118 mg/dL; Estimated Glomerular Filt Rate > 60; Glucose Random 96 mg/dL (60-115); HDL Cholesterol 34 mg/dL; LDL Cholesterol Calculated 70 mg/dl; Potassium 3.6 mmol/L (3.3-5.1); Sodium 140 mmol/L (135-145); Total Protein 7.3 g/dL (6.5-8.0); Triglycerides 73 mg/dL
[2021-08-26 10:11] LABS: Insulin 23 uU/mL (2-29); TSH reflex Free T4 0.59 uIU/mL (0.32-4.0)
--- NOTE | 2021-08-26 22:21 | MHC.SHP ---
Pre-Procedural Eval Section A Date of Service: 08/26/21 The patient is an INPATIENT: Yes The History & Physical has been completed within 30 days and I have reviewed it.: Yes Section B Chief Complaint: obesity Relevant Family History (Specify if Yes): No Relevant Social History: None Present Medications: None Medical History: No relevant PMH History of Previous Operations: No relevant previous surgery Allergies: Allergies Allergy/AdvReac Type Severity Reaction Status Date / Time No Known Allergies Allergy Verified 08/25/21 12:21 [No Known Allergies*] Review of Systems Sugical H&P ROS: Negative: Constitution, Cardiovascular, Respiratory, Neurological, Psychiatric, Hem-Onc, Allergic/Immunologic, Gastrointestinal, Genitourinary, Musculoskeletal, Integumentary, Endocrine and Eyes/Ears/Nose/Throat Exam Surgical H&P Exam: Normal: HEENT, Normal: Heart, Normal: Lungs, Normal: Extremities, Normal: Abdomen, Normal: Skin and Normal: Neurological Plan Diagnosis/Plan: Unchanged I have reviewed the history and physical and performed a pertinent physical examination on my patient. No changes have occurred unless specified.
[2021-08-30 12:50] LABS: COVID-19 Test Negative (Negative); IDNOW Serial# 08D9AD1C
[2021-08-31] VITALS (10 sets, daily range): BP systolic 125–171; BP diastolic 69–97; PULSE 71–94; RESP 16–22; TEMP 36.1–36.6; O2SAT 98–100
--- NOTE | 2021-08-31 11:32 | HO.ANESPROP2 ---
HPI - Anesthesia Eval Consult details Narrative: 36 yo female patient for EGD, sleeve gastrectomy, poss diaphragmatic hernia, possible ventral hernia repair, possible open PMFSH Active Problems Active Problems: All Active Problems (Updated 08/25/21 @ 12:16 by Arian Franklin MD) Nausea (Acute) Hyperparathyroidism (Acute) BMI 34.0-34.9,adult (Acute) Abnormal stress test (Acute) Hepatic calcification (Acute) BMI 35.0-35.9,adult (Acute) BMI 36.0-36.9,adult (Acute) H. pylori infection (Acute) Adjustment disorder, unspecified (Acute) Abnormal EKG (Acute) Zinc deficiency (Acute) Vitamin D deficiency (Acute) Vitamin A deficiency (Acute) Anemia (Acute) Vitamin B1 deficiency (Acute) Migraines (Acute) Seropositive rheumatoid arthritis (Acute) ELEAZAR positive (Acute) Transaminitis (Acute) Hepatic steatosis (Acute) GERD (gastroesophageal reflux disease) (Acute) Essential hypertension (Acute) Hypocalcemia (Acute) Obese (Acute) Rheumatoid arthritis (Acute) Hypoparathyroidism (Acute) Morbid obesity (Acute) Hypovitaminosis D (Acute) Positive cardiolipin antibodies. Repeat test negative Past Medical History Medical History ELEAZAR positive Essential hypertension GERD (gastroesophageal reflux disease) Hyperparathyroidism Hypocalcemia Hypoparathyroidism Hypovitaminosis D Migraines Morbid obesity Obese Rheumatoid arthritis Seropositive rheumatoid arthritis Family History Family History Father No problems noted. Mother Lupus Hypertension Rheumatoid arthritis Brother No problems noted. Sister No problems noted. Sister No problems noted. Sister No problems noted. Family/Other Fibromyalgia Osteoarthritis Family history of problems with anesthesia: No Surgical History Surgical History History of appendectomy Hx laparoscopic cholecystectomy History of Problems with Anesthesia: No Social History Social History Household Members: Spouse Housing: Apartment Are you a primary residential caregiver to a significant other at home: Yes ( amputee) Do you presently have visiting nurse or other home services: No Alcohol intake: never Patient Tobacco Use Status: Never used Tobacco e-Cigarette/Vaping Use: Never Used Second Hand Smoke Exposure: No Use of substances other than those prescribed or required for medical reasons: No Have you been hit, kicked, punched, or otherwise hurt by someone within the past year? If so, by whom?: No Are you DNR?: No Advance Directives: No Advance Directives Information Provided: Yes Advance Directives on File: No Recently lost weight without trying: No Patient : No FDLMP: 08/07/2021 : No Poor oral hygiene: No service: Yes Current occupational status: employed Current occupational exposures/hazards: No Meds Allergies Allergy/AdvReac Type Severity Reaction Status Date / Time No Known Allergies Allergy Verified 08/25/21 12:21 [No Known Allergies*] Active Medications: Current Medications Lactated Ringer's (Lr) 1,000 mls @ 999 mls/hr IV .Q1H1M MAXIMILIAN Stop: 08/31/21 12:00 Home Medications Medication Instructions Recorded Confirmed Last Taken Type hydroxychloroquine 200 mg tablet 200 mg PO BID 05/25/20 08/25/21 Unknown History (Plaquenil) Exam Exam Date and Time: August 31, 2021 1132 Height,Weight and Vital Signs: Height 5 ft 5 in Weight 106.594 kg Last Vital Signs Temp 97.8 F 08/31/21 11:23 Pulse 94 08/31/21 11:23 Resp 16 08/31/21 11:23 BP 139/72 08/31/21 11:23 Pulse Ox 100 08/31/21 11:23 Pertinent Lab Results Pertinent Lab Results: Laboratory Tests 08/26/21 08/26/21 08/26/21 09:05 09:15 09:15 WBC 9.1 RBC 4.58 Hgb 12.4 Hct 39.5 MCV 86.2 MCH 27.1 MCHC 31.4 RDW 13.1 Plt Count 315 MPV 10.2 Immature Gran % (Auto) 0.2 Neut % (Auto) 58.8 Lymph % (Auto) 32.7 Stanton % (Auto) 6.7 Eos % (Auto) 1.1 Baso % (Auto) 0.5 Lymph # (Auto) 3.0 Stanton # (Auto) 0.6 Eos # (Auto) 0.1 Baso # (Auto) 0.1 Abs Immat Gran (auto) 0.02 Absolute Neuts (auto) 5.4 Absolute Nucleated RBC 0.000 Nucleated RBC % (auto) 0.0 PT 12.8 INR 1.1 APTT 33.1 Sodium Potassium Chloride Carbon Dioxide Anion Gap BUN Creatinine Estim Creat Clear Calc Estimated GFR Random Glucose Estimat Average Glucose Hemoglobin A1c % Insulin Level Calcium Total Bilirubin AST ALT Alkaline Phosphatase C-Reactive Protein Total Protein Albumin Triglycerides Cholesterol LDL Cholesterol, Calc HDL Cholesterol TSH COVID-19 ([facility]) COVID-19 Clin Com Blood Type A Positive Antibody Screen NEGATIVE 08/26/21 08/26/21 08/30/21 09:15 09:15 12:23 WBC RBC Hgb Hct MCV MCH MCHC RDW Plt Count MPV Immature Gran % (Auto) Neut % (Auto) Lymph % (Auto) Stanton % (Auto) Eos % (Auto) Baso % (Auto) Lymph # (Auto) Stanton # (Auto) Eos # (Auto) Baso # (Auto) Abs Immat Gran (auto) Absolute Neuts (auto) Absolute Nucleated RBC Nucleated RBC % (auto) PT INR APTT Sodium 140 Potassium 3.6 Chloride 105 Carbon Dioxide 29 Anion Gap 10 L BUN 13 Creatinine 0.68 Estim Creat Clear Calc 136.0 Estimated GFR > 60 Random Glucose 96 Estimat Average Glucose 108 Hemoglobin A1c % 5.4 Insulin Level 23 Calcium 9.0 Total Bilirubin 0.4 AST 11 ALT 11 Alkaline Phosphatase 59 C-Reactive Protein 5.13 H Total Protein 7.3 Albumin 3.7 Triglycerides 73 Cholesterol 118 D LDL Cholesterol, Calc 70 HDL Cholesterol 34 TSH 0.59 COVID-19 ([facility]) Negative COVID-19 Clin Com See Note Blood Type Antibody Screen Laboratory Results - last 24 hr 08/30/21 08/31/21 12:23 11:08 Urine Test NEGATIVE COVID-19 ([facility]I) Negative COVID-19 Clin Com See Note Airway Mallampati Class: II TM Dist: >3cm Neck ROM: Full Heart: RRR Lungs: CTAB Assessment and Plan Assessment Anesthesia Assessment: Anesthesia Plan Discussed and Chart Reviewed Final Anesthetic Review Family History of Problems with Anesthesia: No History of Problems with Anesthesia: No NPO: Yes ASA Class: III Final Preanesthetic Review: No Changes in Pt Med Stat, Meds/Allgs Chart Reviewed, Consent Obtained/Reviewed and Anes Risks/Benef Reviewed Patient Risk: Intermediate Procedure Risk: Intermediate Assessment/Block/Sedation in SS: Assess/Block/Sedation-SS Anesthetic Plan Anesthetic Plan: GA Disposition: Standard PACU and Inp. Admit - Standard Bed
[2021-08-31 11:38] LABS: UPreg QC Valid YES; Urine Pregnancy NEGATIVE (NEGATIVE)
[2021-08-31] MEDS: Lactated Ringers 1,000 ML 999 ML IV (11:43)
[2021-08-31] MEDS: Lactated Ringers 1,000 ML 100 ML IVCONT ×2 (11:43→17:06)
--- NOTE | 2021-08-31 13:16 | PM.OP ---
Brief Operative Note Date of Service: 08/31/21 Pre-op diagnosis: Severe obesity with comorbidities (see below) Post-op diagnosis: same Procedure: INITIAL PATIENT BMI ON PRESENTATION AT OUR OFFICE: 43 kg/m2 LAST BMI BEFORE SURGERY: 34 kg/m2 COMORBIDITIES: hyperinsulinemia, hypertension, GERD, Rheumatoid arthritis, migraines, liver steatosis, hepatomegaly, liver fibrosis ?The patient presented to the Weight Management Program with significant obesity that was negatively impacting the patient's comorbidities as listed above.? The program is a phased program with a special focus on preoperative medical weight management to promote substantial weight loss and prepare the patients for the second phase of the program: bariatric surgery. The patient participated in an intensive weekly lifestyle ?intervention and exercise program during which the patient ?has lost between the initial office visit and the last preoperative visit 26.6 lbs, or 10.29% of initial actual body weight. It was deemed appropriate for the patient to now have bariatric surgery. In light of the current Covid-19 pandemic and the well documented strong association of obesity and increased risk of worse outcomes if infected with Covid-19 (REFERENCES:https://pubmed.ncbi.nlm.nih.gov/94767365/,?https://pubmed.ncbi.nlm.nih.gov/61923721/), any delay in undergoing bariatric surgery may lead to the patient's worsening health condition and increased?risk of more severe Covid-19 disease if infected. In addition a recent?study from [facility] published in [facility] [facility] on 06/19/2021 ([email or web address]) found that, among patients with obesity, substantial weight loss achieved with surgery was associated with improved outcomes of COVID-19 infection. The findings suggest that obesity can be a modifiable risk factor for the severity of COVID-19 infection. In addition, the patient met the BMI-criteria for bariatric surgery based on the BMI on initial presentation. The patient should not be penalized for achieving such weight loss because ?it is not sustainable long-term without surgical intervention and it was achieved in preparation for bariatric surgery ?under my direction and based on my published research ([email or web address]).pdf and?[email or web address].soard.org/article/[email or web address])13530-X/pdf) ?that a 10% preoperative weight loss improves long-term weight loss after surgery and reduces perioperative complications.? Insurance carriers such as [facility] have endorsed my recommendations ?and have included in their policies criteria to include a 10% preoperative weight loss requirement. PROCEDURE: Esophago-gastroscopy, laparoscopic sleeve gastrectomy and laparoscopic gastropexy INDICATIONS: This is a 36 year-old female who was electively scheduled for laparoscopic, possibly open sleeve gastrectomy. The risks and complications of the procedure were discussed with the patient in advance, particularly the possibility of ; pulmonary embolism; staple line leak; bleeding; GERD; cardiac, pulmonary, or renal complications; as well as long-term problems such as insufficient weight loss, vitamin deficiency, strictures, or ulcers. The patient understood all the risks, and was in agreement to proceed with surgery. DESCRIPTION OF PROCEDURE: After informed consent was obtained from the patient, the patient was given preoperative antibiotics, and was transferred to the operating room. After successful induction of general anesthesia, pneumatic compression devices were placed on both lower extremities. An upper endoscopy was performed next. The oropharynx and esophagus appeared to be within normal limits. There was no diaphragmatic hernia present consistent with the findings of the preoperative upper GI. The stomach was entered. Then after all fluid and air were suctioned and the stomach was fully decompressed, the scope was withdrawn and secured in the mid esophagus. The patient was then prepped and draped in the usual sterile manner, and abdominal access was established at the right upper quadrant with the Mervin technique. A 12 mm blunt port was inserted, and the abdomen was insufflated with CO2 to a pressure of 15 mmHg. Under direct visualization, additional ports were placed, specifically two 5 mm Versi-step ports to the left upper quadrant, and a 5 mm Versi-Step port to the right upper quadrant. 1% lidocaine plain was used to infiltrate all port sites as well as all fascia defects. Using the EndoClose suture passer device, I placed a #1 Polysorb tie across the falciform ligament in order to retract it up against the abdominal wall and prevent injury of the ligament with our instruments during the procedure. Following that, the patient was placed in a steep reverse Trendelenburg position. An additional 5 mm port was placed to the right flank for the Mediflex retractor that was used to retract the left lobe of the liver. The gastro-esophageal fat pad was opened with the ultrasonic device (Thunderbeat, Olympus) and the anterior esophagus and hiatus were exposed. The angle of His was opened with the ultrasonic device the fundus of the stomach from any diaphragmatic and splenic attachments. I then opened the gastrocolic ligament between the transverse colon and the greater curvature of the stomach with the ultrasonic device to enter the lesser sac and facilitate the ligation of the short gastric vessels. I started at a mid-point along the greater curvature and using the Thunderbeat, all short gastric vessels were divided all the way to the angle of His until the left jonas was completely dissected at its entirety. I then divided the gastro-colic ligament distally to a distance of about 3-4 cm proximal to the pylorus.? The stomach was then divided transversely with one Endo KAITLYNN-45 purple, one KAITLYNN-45 orange load and four KAITLYNN-60 articulating orange loads using the AEON stapler and loads. Every effort was made that the gastric sleeve had a tubular shape and an even caliber throughout. Once the sleeve resection was completed, the staple line of the gastric sleeve was reinforced with Hemoclips. The resected stomach was retrieved without difficulty from the Mervin port. A gastropexy was then performed in order to prevent postoperative GERD and partial gastric volvulus. Several interrupted 2.0 Surgidac sutures were placed between the sleeve's staple line and the previously divided greater omentum and gastro-colic ligament using the Endo-Stitch device. ?An upper endoscopy was performed. There was no narrowing at the GE junction. The scope was easily advanced all the way to the pylorus which was clearly visualized. There was no narrowing anywhere and the sleeve's caliber was even throughout. The sleeve's staple line was inspected and there was no evidence of ischemia, bleeding or dehiscence. At that point the gastroscope was withdrawn from the patient?s mouth while we were decompressing the bowel and the stomach from any remaining air. I looked into the lesser sac to see how the sleeve was situating and it was situating well. There was no bleeding from the staple line, spleen, or short gastric vessels. The Mediflex retractor was removed, and the undersurface of the liver was inspected and there was no bleeding. The patient was placed in supine position. I closed the fascial defect of the 12 mm port site with a figure of eight #1 Polysorb suture. Then 100 cc 0.25 % Marcaine plain with 10 mg of Dexamethasone were used to infiltrate the fascial closure as well as all skin incisions. At this point, the abdomen was deflated, all ports were removed under direct vision, and no bleeding was noted from any of the port sites. The skin incisions were irrigated with saline and were closed with 4-0 absorbable monofilament sutures. Steri-Strips and OpSites were used to cover all incisions. The patient was extubated and was transferred in stable condition to the recovery room for further care. I was present and performed all tamez parts of the procedure. Marina was the fish hatchery assistant. There were no residents to assist with this case. Jacob Franklin MD, PhD, FACS Surgeon: Arian Franklin MD Anesthesia: GETA, local and other (TAP block) Was an Icu Manager used for this Procedure?: No Icu Manager: Kuldip Marina Estimated blood loss (mL): 10 IV fluids (mL): 2,400 Urine output (mL): 0 (No Talavera to record) Pathology: other (Stomach) Condition: stable Disposition: PACU
--- NOTE | 2021-08-31 13:20 | PM.PNGS ---
Subjective Subjective Date of Service: 08/31/21 Interval history: Patient has mild incisional pain, but was able to ambulate and use the incentive spirometer. She is tolerating phase 1 bariatric diet Physical Exam Vital Signs: Vital Signs: Last Vital Signs Temp 97.8 F 08/31/21 11:23 Pulse 94 08/31/21 11:23 Resp 16 08/31/21 11:23 BP 139/72 08/31/21 11:23 Pulse Ox 100 08/31/21 11:23 BMI result Body Mass Index 39.1 GI: Inspection: Yes normal to inspection, Yes incision (clean, dry and intact) and Yes obesity Extrem: Right lower extremity: normal to inspection (no calf tenderness) Left lower extremity: normal to inspection (no calf tenderness) Objective Data Active Medications Fentanyl (Fentanyl Citrate/Pf 100 Mcg/2 Ml Vial) 25 mcg IVPUSH Q5M PRN; Protocol PRN Reason: Pain, Moderate (Pain Scale 4-6 Hydromorphone HCl (Hydromorphone Hcl 0.5 Mg/0.5 Ml Syringe) 0.25 mg IVPUSH Q5M PRN; Protocol PRN Reason: Pain, Severe (Pain Scale 7-10) Lactated Ringer's (Lr) 1,000 mls @ 100 mls/hr IVCONT .Q10H MAXIMILIAN Last Admin: 08/31/21 11:43 Dose: 100 mls/hr Documented by: SANA Promethazine HCl 6.25 mg/ (Sodium Chloride) 50.25 mls @ 201 mls/hr IV ONCE PRN PRN Reason: Nausea and Vomiting Ondansetron HCl (Ondansetron Hcl 4 Mg/2 Ml Vial) 4 mg IVPUSH ONCE PRN PRN Reason: Nausea and Vomiting Labs CBC & Chem 7: 08/31/21 16:22 08/31/21 16:22 Labs: Laboratory Results - last 24 hr 08/31/21 11:08 Urine Test NEGATIVE Progress Note: A&P Assessment and plan (1) Obese: Status: Acute Assessment and Plan: s/p laparoscopic sleeve gastrectomy, lysis of adhesions repair of diaphragmatic hernia, and gastropexy Doing well Check am labs. If OK, will discharge home? (2) BMI 34.0-34.9,adult: Status: Acute (3) Hepatic steatosis: Status: Acute (4) Migraines: Status: Acute (5) Essential hypertension: Status: Acute (6) GERD (gastroesophageal reflux disease): Status: Acute (7) Rheumatoid arthritis: Status: Acute (8) Hepatomegaly: Status: Acute (9) Liver fibrosis: Status: Acute (10) S/P laparoscopic sleeve gastrectomy: Status: Acute Fall Risk Details Current Medications: Current Medications Fentanyl (Fentanyl Citrate/Pf 100 Mcg/2 Ml Vial) 25 mcg IVPUSH Q5M PRN; Protocol PRN Reason: Pain, Moderate (Pain Scale 4-6 Hydromorphone HCl (Hydromorphone Hcl 0.5 Mg/0.5 Ml Syringe) 0.25 mg IVPUSH Q5M PRN; Protocol PRN Reason: Pain, Severe (Pain Scale 7-10) Lactated Ringer's (Lr) 1,000 mls @ 100 mls/hr IVCONT .Q10H MAXIMILIAN Last Admin: 08/31/21 11:43 Dose: 100 mls/hr Documented by: Promethazine HCl 6.25 mg/ (Sodium Chloride) 50.25 mls @ 201 mls/hr IV ONCE PRN PRN Reason: Nausea and Vomiting Ondansetron HCl (Ondansetron Hcl 4 Mg/2 Ml Vial) 4 mg IVPUSH ONCE PRN PRN Reason: Nausea and Vomiting Time Spent With Patient Time: Total time spent is greater than 50% in coordination of care (as documented) at patient's floor/unit and/or counseling patient: Quality Stroke Does the patient have a stroke diagnosis?: No VTE Prior VTE?: No VTE Risk Level:: Surgical - moderate VTE Device Contraindication: N/A - Device Ordered VTE Drug Contraindication: Treatment Not Indicated
[2021-08-31] MEDS: ceFAZolin Sodium/Dextrose,Iso 2 GM/50 ML PIGGYBACK IV ×2 (13:40→20:10)
--- NOTE | 2021-08-31 16:08 | P.DS_ITS ---
DS: Providers Provider Date of Service: 09/01/21 Date of admission: 08/31/21 10:58 Primary care physician: Unknown Physician DS: Diagnosis Discharge Diagnosis (1) Obese: Status: Acute (2) BMI 34.0-34.9,adult: Status: Acute (3) Hepatic steatosis: Status: Acute (4) Migraines: Status: Acute (5) Essential hypertension: Status: Acute (6) GERD (gastroesophageal reflux disease): Status: Acute (7) Rheumatoid arthritis: Status: Acute (8) Hepatomegaly: Status: Acute (9) Liver fibrosis: Status: Acute DS: Summary Hospital Course Hospital Course: ADMITTING DIAGNOSIS: morbid obesity, htn, hyperparathyroidism, hypocalcemia, RA, migraine LÓPEZ, anemia GERD ? DISCHARGE DIAGNOSIS: same, s/p laparoscopic sleeve gastrectomy ? PAST SURGICAL HISTORY: appendectomy, laparoscopic cholecystectomy ? PROCEDURE: upper endoscopy, laparoscopic sleeve gastrectomy with gastropexy ? DISCHARGE SUMMARY: ? History of Present Illness: ? The patient is a?36 year-old woman with a BMI of?43.2 kg/m2 and associated co- morbidities as described above. The patient had extensive work-up,lost?26.6 lbs preoperatively and was electively scheduled for laparoscopic, possible open sleeve gastrectomy and gastropexy. Risks and complications of the surgery were discussed with the patient in advance, particularly the possibility of , pulmonary embolism, anastomotic leak, bleeding, bowel injury, GERD, cardiac, renal or pulmonary complications. The patient understood all the risks and was in agreement with the surgical plan. ? Hospital Course: ? The patient underwent an uneventful laparoscopic sleeve gastrectomy with gastropexy on the day of admission. Postoperatively, the patient was transferred to the surgical floor. The patient received IV Acetaminophen and IV dilaudid for pain control. Patient was started on bariatric phase 1 diet POD #0. On postoperative day one, the patient was feeling well without nausea, vomiting, fevers, or tachycardia. The patient had some mild incisional pain and the abdomen was soft. ? On the morning of postoperative day one, the patient was continued on 1 ounce of water or ice every half hour. During the day, the patient did fairly well, having some incisional pain, but able to ambulate adequately and to tolerate liquids well. ? Since the patient is doing well, we decided that the patient was ready to be discharged. The patient was given instructions to follow-up with me next week and to call my office for any fever over 101, persistent abdominal pain, nausea, vomiting, GERD, symptoms of DVT such as calf tenderness, or leg swelling, or pulmonary embolism such as chest pain or shortness of breath. The patient was also instructed to drink 40-60 ounces of liquids per day using the 1-ounce cups. The patient had been given prescriptions for Tylenol for pain, Zofran prn for nausea, and pantoprazole and carafate previously. The patient was encouraged to ambulate and use the incentive spirometer. The patient was allowed to shower, but no baths, and encouraged to stay active at home. All of these instructions were given to the patient personally. All questions were answered and the patient understood all instructions, the instructions were also given to the patient in print. Time Spent with Patient Time attestation: Total time spent providing and/or coordinating discharge services: Discharge coordination time: Less than 30 minutes Quality: Stroke Does the patient have a stroke diagnosis?: No Physical Exam Vital Signs: Vital Signs: Last Vital Signs Temp 97.4 F 08/31/21 15:59 Pulse 86 08/31/21 15:59 Resp 22 H 08/31/21 15:59 BP 134/79 08/31/21 15:59 Pulse Ox 100 08/31/21 15:59 BMI result Body Mass Index 39.1 DS: Data Data Completed and Pending Pending studies at discharge: Pending at discharge 08/31/21 14:59 Surgical [PTH] Routine Labs on day of discharge: Laboratory Results - last 24 hr 08/31/21 11:08 Urine Test NEGATIVE Discharge Plan Discharge Patient Disposition: Home, Self-Care Discharge Diagnosis: s/p laparoscopic sleeve gastrectomy Referrals: Physician,Unknown J [Primary Care Provider] - 1 Week Discharge Medications: Continued sumatriptan succinate 50 mg tablet 50 mg PO Q2-4H PRN (Reason: migraine headache) 30 Days Qty: 9 6RF Rx Instructions: do not exceed 4 doses per 24 hrs enalapril maleate 10 mg tablet 10 mg PO DAILY 90 Days Qty: 90 1RF pantoprazole 40 mg tablet,delayed release (DR/EC) 40 mg PO DAILY Qty: 30 2RF sucralfate 100 mg/mL suspension 10 ml PO BID Qty: 400 2RF ondansetron HCl 4 mg tablet 4 mg PO Q12H Qty: 20 0RF Held Humira(CF) Pen 40 mg/0.4 mL pen injector kit See Rx Instructions subcut .COMPLEX Qty: 2 3RF Hold Instructions: until discussed with Dr Franklin Rx Instructions: inject one - 40 mg/0.4 mL pen every 2 weeks subcut Discontinued cholecalciferol (vitamin D3) 125 mcg (5,000 unit) capsule 125 mcg PO DAILY 30 Days Qty: 30 2RF thiamine HCl (vitamin B1) 100 mg tablet 1 tab PO DAILY 0RF vitamin A 10,000 unit Capsule 10,000 unit PO DAILY 0RF zinc (acetate) lozenges 10 mg PO DAILY 0RF iron,carbonyl-vitamin C 65 mg iron- 125 mg Tablet,Delayed Release (Dr/Ec) 1 tab PO DAILY 0RF cyclobenzaprine 10 mg tablet 10 mg PO BEDTIME 90 Days Qty: 90 1RF tramadol 50 mg tablet 50 mg PO BID 30 Days Qty: 60 0RF Discharge Orders: Discharge Order (Routine); Ordered 09/01/21 Ordered By: Kuldip Marina Diet: other Activity on Discharge: No heavy lifting Stand Alone Forms: Patient Portal Discharge page Care Plan Goals: weight loss Health Concerns: obesity Plan of Treatment: No tub baths, sex or returning to work until discussed at first post op appointment. No exercise, alcohol, tobacco or illegal drug use. Continue to use incentive spirometer hourly while awake. Walk in home for 5- 10 minutes every 2 hours during the first week. Follow all instructions in the bariatric handbook and call with any questions.Discharge Instructions 1. Please call your doctor or come back to the emergency room should any new symptoms arise. 2. You will receive a courtesy call from [facility] 24-48 hours after discharge. 3. Activity: abstain from alcohol, practice limited stair climbing, no bending, no driving, no exercise, no illicit substances, no lifting, no sex, no tub bath, no work. 4. Diet: continue as discussed with Dr. Franklin. 5. Dressing Change/Wound Care: Your incision is covered by clear bandages and guaze underneath. If the area is tender, you may apply an ice pack for short intervals (no more than 20 minutes on, followed by at least 20 minutes off). Do not apply heat. Do not use creams, lotions, or topical antibiotics unless instructed to do so by your surgeon. These can cause infection or allergic reaction. 6. Call your doctor if: - Your temperature exceeds 101.5 F - You experience excessive pain or swelling - You have an unexpected reaction to medication - You have excessive bleeding - You experience continued vomiting/nausea - Your incision begins to separate - Your incision shows signs of infection such as increased redness, swelling, excessive pain, heat, or drainage (light blood or clear fluid is normal) 7. General instructions: No lifting greater than 5 lbs for the next 4 weeks[address] driving within 24 hours of taking narcotic pain medications. If you do not move your bowels in the next 2 days, please take milk of magnesia over the counter. Please follow the post op diet and do not advance your diet until you are seen in the office in about 2 weeks. Please walk around your home every hour or two to prevent blood clots from forming in your legs. You do not need to wake from sleeping to walk. Please sleep in a bed or couch to prevent kinking at the hips and knees. Please take your incentive spirometer (your lung manager labor delivery) home with you and use it for the next few days to prevent pneumonias. You may shower, no hot tubs, baths or swimming pools. Please call the office with any questions or concerns such as increasing abdominal pain, fever, chills, shortness of breath, chest pain, leg pain or swelling, or redness or drainage from your incisions. Please stay on stage 3 diet which includes sugar free clear liquids such as ice pops and jello and broth and crystal light. Avoid all carbonation. Please drink 3 protein shakes with at least 25-30 grams of protein daily or 3 of the Celebrate 4:1 shakes which can be purchased in our office. The Celebrate shakes have all of the bariatric vitamins you need if you consume these shakes. If you are drinking other protein shakes, you will need to purchase the Celebrate multivitamins and calcium that we provide in the office (they will provide all the vitamins you need). Please make sure you are consuming at least 40-60 ounces of water in addition to your 3 protein shakes daily. Do not hesitate to contact the office with any questions at . The patient's medical history has been reviewed and they are considered low risk for post op DVT and therefore DVT prophylaxis is not considered necessary. Travel after surgery was reviewed. The patient has not disclosed any travel plans during the first 30 days after surgery and they have been advised that within the first 30 days after surgery any bus, plane, train or car travel over 2 hours in duration is contraindicated due to the possibility of developing blood clots from immobility. Any travel, needs to include periods of ambulation of 10 minutes in duration every 2 hours.? The patient was instructed to discuss any plans for travel during this period with their bariatric surgeon. Assessment: stable, s/p laparoscopic sleeve gastrectomy
[2021-08-31 16:29] LABS: Hematocrit 39.3 % (37.0-47.0); Hemoglobin 12.3 g/dl (12.0-16.0)
[2021-08-31] MEDS: Famotidine/PF 20 MG/2 ML VIAL IVPUSH ×2 (16:43→21:09)
[2021-08-31 16:45] LABS: Anion Gap 12 (12-20); Blood Urea Nitrogen 15 mg/dL (9-16); Calcium 8.4 mg/dL (8.4-10.2); Carbon Dioxide 23 mmol/L (22-29); Chloride 104 mmol/L (96-108); Creatinine Clr Calc Pharmacy 120.1; Estimated Glomerular Filt Rate > 60; Glucose Random 141 mg/dL (60-115); Potassium 4.3 mmol/L (3.3-5.1); Sodium 135 mmol/L (135-145)
[2021-08-31] MEDS: Metoclopramide HCl 10 MG/2 ML VIAL IVPUSH (17:04)
--- NOTE | 2021-08-31 21:32 | PHA.MEDREC ---
Pharmacy Consult ? Medication Reconciliation Pharmacy has completed the medication reconciliation. Patient drowsy, confirmed medication
[2021-09-01] MEDS: Metoclopramide HCl 10 MG/2 ML VIAL IVPUSH (00:05)
[2021-09-01] MEDS: HYDROmorphone HCl 0.5 MG/0.5 ML SYRINGE 0.25 MG IVPUSH (00:08)
[2021-09-01] MEDS: Lactated Ringers 1,000 ML 100 ML IVCONT (04:46)
[2021-09-01 06:12] LABS: MANUAL DIFF FLAG NO
[2021-09-01 06:16] LABS: Basophils Percent Auto 0.1 % (0-2); Hematocrit 36.7 % (37.0-47.0); Hemoglobin 11.6 g/dl (12.0-16.0); Imm Gran Abs Auto 0.06 X10*3/uL (0.00-0.03); Imm Gran Pct Auto 0.6 % (0.0-0.4); Lymphocytes Absolute Auto 1.7 X10*3/uL (1.2-4.9); Lymphocytes Percent Auto 15.7 % (20-40); Mean Corpuscular HGB Conc 31.6 g/dl (31.0-35.0); Mean Corpuscular Hemoglobin 26.9 pg (27.0-33.0); Mean Corpuscular Volume 85.2 fL (80.0-98.0); Mean Platelet Volume 10.2 fL (9.4-12.3); Monocytes Absolute Auto 0.5 X10*3/uL (0.1-1.2); Neutrophils Absolute Auto 8.2 x10*3/uL (2.0-8.3); Neutrophils Percent Auto 78.6 % (45-73); Platelet Count 318 X10*3/uL (160-400); Red Blood Count 4.31 X10*6/uL (4.20-5.50); Red Cell Distribution Width 12.8 % (11.0-16.0); White Blood Count 10.5 X10*3/uL (4.8-10.8)
[2021-09-01 06:52] LABS: Anion Gap 13 (12-20); Blood Urea Nitrogen 11 mg/dL (9-16); Calcium 8.7 mg/dL (8.4-10.2); Carbon Dioxide 23 mmol/L (22-29); Chloride 103 mmol/L (96-108); Creatinine Clr Calc Pharmacy 144.5; Estimated Glomerular Filt Rate > 60; Glucose Random 122 mg/dL (60-115); Potassium 4.5 mmol/L (3.3-5.1); Sodium 134 mmol/L (135-145)
[2021-09-01 07:29] VITALS: BP 155/75; PULSE 60; RESP 18; TEMP 36.6; O2SAT 100
[2021-09-01] MEDS: Famotidine/PF 20 MG/2 ML VIAL IVPUSH (09:35)
[2021-09-01] MEDS: Enalapril Maleate 10 MG TABLET PO (09:35)
[2021-09-01] MEDS: ondansetron HCL 4 MG/2 ML VIAL IVPUSH (09:35)
--- NOTE | 2021-09-01 09:40 | MHC.CM.PN ---
nurse telehealth case manager note electronic medical record reviewed along with case discussed with staff nurse. met with patient with [facility] [place] interperter and with her permission her remained present diuring this interview. patient lives withher she is active , independent in all adls and mobility (has no vna , no dme svs ) pcp dr fabrizio corea covid vaccination x3 pfizer d/c plan home no services
--- NOTE | 2021-09-01 12:53 | HO.POSTANES ---
Post Anesthesia Evaluation Post Anesthesia Evaluation Vital Signs: Vital Signs Temp Pulse Resp BP Pulse Ox 09/01/21 07:29 97.8 F 60 18 155/75 H 100 Anesthesia: General Endotracheal-GETA Mental Status: Awake Pain Control: Satisfactory Nausea/Vomiting: None Hydration: Adequate Anesthesia-Related Issues: No Anes. Related Issues
== END 2021-09-01 10:30 | disposition home or self-care (01) | DRG 403 ==
LOC: HO.SSSA 11:00 → HO.S3 14:30
PROVIDERS: Anesthesiology; Physician Assistant Surgical; Admitting Provider Surgery; PCP Internal Medicine; Visit Provider Surgery
PROC: 0DB64Z3 Excision of Stomach, Percutaneous Endoscopic Approach, Vertical (ICD-10-PCS; CPT 43845; principal; 2021-08-31 12:50)
DX: E66.01 Morbid (severe) obesity due to excess calories (principal); K74.00 Hepatic fibrosis, unspecified; E16.1 Other hypoglycemia; G43.909 Migraine, unspecified, not intractable, without status migrainosus; Z68.34 Body mass index [BMI] 34.0-34.9, adult; K21.9 Gastro-esophageal reflux disease without esophagitis; I10 Essential (primary) hypertension; K76.0 Fatty (change of) liver, not elsewhere classified; M06.9 Rheumatoid arthritis, unspecified; Z20.822 Contact with and (suspected) exposure to COVID-19; Z79.899 Other long term (current) drug therapy
CPT/HCPCS: 36415; 80048; 80053; 80061; 81025; 83036; 83525; 84443; 85014; 85018; 85025; 85610; 85730; 86140; 86850; 86900; 86901; 87635; 88307; 88342; A4649; J0131; J0690; J1100; J1170; J2250; J2370; J2405; J2765; J3010

== ENCOUNTER 2021-09-04 09:47 | Outpatient (REF) | payer OTHER, SELFPAY ==
--- NOTE | ~2021-09-04 | US_ITS ---
EXAMINATION: US VENOUS ULTRASOUND WITH DOPPLER LOWER EXTREMITY, LEFT CLINICAL INFORMATION: Pain COMPARISON: None TECHNIQUE: Ultrasound of the deep veins is performed from the hip to the calf with compression sonography and color and pulse Doppler assessment. Spectral analysis with color-flow imaging is performed. FINDINGS: There is normal venous compression and respiratory variation and augmented flow. The visualized common femoral vein, superficial femoral vein, profunda femoral vein, popliteal vein, and the trifurcation region shows no evidence of deep venous thrombosis. There is no significant popliteal fossa cyst. US/US venous duplex LE LT IMPRESSION: No DVT demonstrated in the left lower extremity.
== END 2021-09-04 09:48 | disposition home or self-care (01) ==
LOC: HO.US 09:47
PROVIDERS: Visit Provider Surgery
DX: M79.662 Pain in left lower leg (principal); Z98.84 Bariatric surgery status
CPT/HCPCS: 93971

== ENCOUNTER → 2021-09-05 14:54 | Outpatient (BNVA) | payer OTHER, SELFPAY | PROVIDERS: PCP Internal Medicine; Visit Provider Surgery | DX: E66.9 Obesity, unspecified (principal); Z68.38 Body mass index [BMI] 38.0-38.9, adult | CPT/HCPCS: 99212 ==

== ENCOUNTER → 2021-10-04 09:18 | Outpatient (BNVA) | payer OTHER, SELFPAY | PROVIDERS: PCP Internal Medicine; Visit Provider Nurse Practitioner Family | DX: M05.9 Rheumatoid arthritis with rheumatoid factor, unspecified (principal); R74.01 Elevation of levels of liver transaminase levels; E66.9 Obesity, unspecified; Z68.35 Body mass index [BMI] 35.0-35.9, adult | CPT/HCPCS: 99212 ==

== ENCOUNTER → 2021-10-16 08:10 | Outpatient (BNVA) | payer OTHER, SELFPAY | PROVIDERS: PCP Internal Medicine; Visit Provider Physician Assistant | DX: E66.9 Obesity, unspecified (principal); Z68.33 Body mass index [BMI] 33.0-33.9, adult; Z98.84 Bariatric surgery status | CPT/HCPCS: 99212 ==

== ENCOUNTER 2021-11-27 09:31 | Outpatient (REF) | payer OTHER, SELFPAY ==
[2021-11-27 09:44] LABS: MANUAL DIFF FLAG NO
[2021-11-27 10:18] LABS: Basophils Absolute Auto 0.1 X10*3/uL (0.0-0.2); Basophils Percent Auto 0.7 % (0-2); Eosinophils Absolute Auto 0.1 X10*3/uL (0.0-0.4); Eosinophils Percent Auto 0.8 % (0-4); Hematocrit 38.6 % (37.0-47.0); Hemoglobin 12.2 g/dl (12.0-16.0); Imm Gran Abs Auto 0.02 X10*3/uL (0.00-0.03); Imm Gran Pct Auto 0.3 % (0.0-0.4); Lymphocytes Absolute Auto 2.9 X10*3/uL (1.2-4.9); Lymphocytes Percent Auto 38.9 % (20-40); Mean Corpuscular HGB Conc 31.6 g/dl (31.0-35.0); Mean Corpuscular Hemoglobin 27.5 pg (27.0-33.0); Mean Corpuscular Volume 87.1 fL (80.0-98.0); Mean Platelet Volume 10.8 fL (9.4-12.3); Monocytes Absolute Auto 0.7 X10*3/uL (0.1-1.2); Monocytes Percent Auto 9.3 % (2-11); Neutrophils Absolute Auto 3.8 x10*3/uL (2.0-8.3); Platelet Count 250 X10*3/uL (160-400); Red Blood Count 4.43 X10*6/uL (4.20-5.50); White Blood Count 7.5 X10*3/uL (4.8-10.8)
[2021-11-27 10:54] LABS: Alanine Aminotransferase 13 U/L (0-31); Albumin Level 3.9 g/dL (3.5-5.0); Alkaline Phosphatase 58 U/L (39-117); Anion Gap 13 (12-20); Aspartate Amino Transferase 15 U/L (5-31); Bilirubin Total 0.5 mg/dL (0.0-1.0); Blood Urea Nitrogen 15 mg/dL (9-16); C Reactive Protein 1.17 mg/dL (< or = 0.50); Carbon Dioxide 26 mmol/L (22-29); Chloride 105 mmol/L (96-108); Estimated Glomerular Filt Rate > 60; Glucose Random 90 mg/dL (60-115); Potassium 3.6 mmol/L (3.3-5.1); Sodium 140 mmol/L (135-145); Total Protein 7.4 g/dL (6.5-8.0)
[2021-11-27 10:57] LABS: Erythrocyte Sedimentation Rate 23 MM/HR (0-20)
== END 2021-11-27 09:32 | disposition home or self-care (01) ==
LOC: HO.LAB 09:31
PROVIDERS: PCP Internal Medicine; Visit Provider Nurse Practitioner Family
DX: M05.9 Rheumatoid arthritis with rheumatoid factor, unspecified (principal)
CPT/HCPCS: 36415; 80053; 85025; 85652; 86140

== ENCOUNTER → 2022-01-04 09:37 | Outpatient (BNVA) | payer OTHER, SELFPAY | PROVIDERS: PCP Internal Medicine; Visit Provider Nurse Practitioner Family | DX: M05.9 Rheumatoid arthritis with rheumatoid factor, unspecified (principal); M25.562 Pain in left knee; R74.01 Elevation of levels of liver transaminase levels; E66.9 Obesity, unspecified; Z68.33 Body mass index [BMI] 33.0-33.9, adult | CPT/HCPCS: 99212 ==

== ENCOUNTER → 2022-05-01 09:33 | Outpatient (BNVA) | payer OTHER, SELFPAY | PROVIDERS: PCP Internal Medicine; Referring Provider Internal Medicine; Visit Provider Nurse Practitioner Family | DX: M05.9 Rheumatoid arthritis with rheumatoid factor, unspecified (principal); R74.01 Elevation of levels of liver transaminase levels; E66.9 Obesity, unspecified; Z68.32 Body mass index [BMI] 32.0-32.9, adult | CPT/HCPCS: 99212 ==

== ENCOUNTER 2022-07-30 09:28 | Outpatient (REF) | payer OTHER, SELFPAY ==
--- NOTE | ~2022-07-30 | XR_ITS ---
EXAMINATION: XR HAND, LEFT XR HAND, RIGHT CLINICAL INFORMATION: Rheumatoid arthritis. Bilateral hand pain, right greater than left COMPARISON: 03/05/2019 TECHNIQUE: 3 views of the left hand. 3 views of the right hand. FINDINGS: Left hand: No fracture or dislocation. Alignment is maintained. Joint spaces are maintained. No osseous erosions. The soft tissues are unremarkable. Right hand: No fracture or dislocation. Alignment is maintained. Joint spaces are maintained. No osseous erosions. Cyst formation noted in the head of the second digit proximal phalanx. This is similar to prior. The soft tissues are unremarkable. XR/XR hand LT min 3V IMPRESSION: Normal appearance of both hands. No osseous erosions.
--- NOTE | ~2022-07-30 | XR_ITS ---
EXAMINATION: XR HAND, LEFT XR HAND, RIGHT CLINICAL INFORMATION: Rheumatoid arthritis. Bilateral hand pain, right greater than left COMPARISON: 03/05/2019 TECHNIQUE: 3 views of the left hand. 3 views of the right hand. FINDINGS: Left hand: No fracture or dislocation. Alignment is maintained. Joint spaces are maintained. No osseous erosions. The soft tissues are unremarkable. Right hand: No fracture or dislocation. Alignment is maintained. Joint spaces are maintained. No osseous erosions. Cyst formation noted in the head of the second digit proximal phalanx. This is similar to prior. The soft tissues are unremarkable. XR/XR hand RT min 3V IMPRESSION: Normal appearance of both hands. No osseous erosions.
[2022-07-30 09:43] LABS: MANUAL DIFF FLAG NO
[2022-07-30 10:17] LABS: Basophils Percent Auto 0.7 % (0-2); Eosinophils Absolute Auto 0.1 X10*3/uL (0.0-0.4); Eosinophils Percent Auto 0.9 % (0-4); Hematocrit 39.1 % (37.0-47.0); Hemoglobin 12.4 g/dl (12.0-16.0); Imm Gran Abs Auto 0.02 X10*3/uL (0.00-0.03); Imm Gran Pct Auto 0.4 % (0.0-0.4); Lymphocytes Absolute Auto 2.1 X10*3/uL (1.2-4.9); Lymphocytes Percent Auto 39.3 % (20-40); Mean Corpuscular HGB Conc 31.7 g/dl (31.0-35.0); Mean Corpuscular Hemoglobin 27.6 pg (27.0-33.0); Mean Corpuscular Volume 86.9 fL (80.0-98.0); Mean Platelet Volume 10.3 fL (9.4-12.3); Monocytes Absolute Auto 0.4 X10*3/uL (0.1-1.2); Monocytes Percent Auto 7.1 % (2-11); Neutrophils Absolute Auto 2.8 x10*3/uL (2.0-8.3); Neutrophils Percent Auto 51.6 % (45-73); Platelet Count 265 X10*3/uL (160-400); Red Cell Distribution Width 12.5 % (11.0-16.0); White Blood Count 5.3 X10*3/uL (4.8-10.8)
[2022-07-30 11:07] LABS: Alanine Aminotransferase 6 U/L (0-31); Albumin Level 3.9 g/dL (3.5-5.0); Alkaline Phosphatase 67 U/L (39-117); Anion Gap 9 (12-20); Aspartate Amino Transferase 10 U/L (5-31); Bilirubin Total 0.7 mg/dL (0.0-1.0); Blood Urea Nitrogen 14 mg/dL (9-16); C Reactive Protein 0.38 mg/dL (< or = 0.50); Carbon Dioxide 28 mmol/L (22-29); Chloride 105 mmol/L (96-108); Cholesterol 153 mg/dL; Estimated Glomerular Filt Rate > 60; Glucose Fasting 85 mg/dL (60-99); HDL Cholesterol 57 mg/dL; LDL Cholesterol Calculated 88 mg/dl; Sodium 138 mmol/L (135-145); Triglycerides 42 mg/dL
[2022-07-30 11:11] LABS: Erythrocyte Sedimentation Rate 16 MM/HR (0-20)
[2022-07-30 11:17] LABS: Alanine Aminotransferase 7 U/L (0-31); Aspartate Amino Transferase 10 U/L (5-31)
[2022-07-30 11:26] LABS: Vitamin D 25-OH Total 12.3 ng/mL (>30)
[2022-07-31 15:08] LABS: Calcium (PTHI) 9.1 mg/dL (8.6-10.2); PTHI 59 pg/mL (16-77)
== END 2022-07-30 09:29 | disposition home or self-care (01) ==
LOC: HO.LAB 09:28
PROVIDERS: Absent Provider Internal Medicine; PCP Internal Medicine; Visit Provider Nurse Practitioner Family
DX: Z00.00 Encounter for general adult medical examination without abnormal findings (principal); E21.3 Hyperparathyroidism, unspecified; E55.9 Vitamin D deficiency, unspecified; M05.9 Rheumatoid arthritis with rheumatoid factor, unspecified; M25.531 Pain in right wrist; M79.641 Pain in right hand; Z79.899 Other long term (current) drug therapy
CPT/HCPCS: 36415; 73130; 80053; 80061; 82306; 82330; 83970; 84450; 84460; 85025; 85652; 86140

== ENCOUNTER → 2022-07-31 08:24 | Outpatient (BNVA) | payer OTHER, SELFPAY | PROVIDERS: PCP Internal Medicine; Visit Provider Nurse Practitioner Family | DX: M05.9 Rheumatoid arthritis with rheumatoid factor, unspecified (principal); R22.32 Localized swelling, mass and lump, left upper limb; Z79.899 Other long term (current) drug therapy | CPT/HCPCS: 99212 ==

== ENCOUNTER 2023-01-02 11:26 | Outpatient (REF) | payer OTHER, SELFPAY ==
[2023-01-02 11:44] LABS: MANUAL DIFF FLAG NO
[2023-01-02 12:57] LABS: Basophils Percent Auto 0.7 % (0-2); Eosinophils Absolute Auto 0.1 X10*3/uL (0.0-0.4); Eosinophils Percent Auto 0.8 % (0-4); Hematocrit 39.2 % (37.0-47.0); Hemoglobin 12.3 g/dl (12.0-16.0); Imm Gran Abs Auto 0.01 X10*3/uL (0.00-0.03); Imm Gran Pct Auto 0.2 % (0.0-0.4); Lymphocytes Absolute Auto 2.6 X10*3/uL (1.2-4.9); Lymphocytes Percent Auto 43.1 % (20-40); Mean Corpuscular HGB Conc 31.4 g/dl (31.0-35.0); Mean Corpuscular Hemoglobin 27.3 pg (27.0-33.0); Mean Corpuscular Volume 87.1 fL (80.0-98.0); Mean Platelet Volume 10.3 fL (9.4-12.3); Monocytes Absolute Auto 0.4 X10*3/uL (0.1-1.2); Monocytes Percent Auto 6.7 % (2-11); Neutrophils Percent Auto 48.5 % (45-73); Platelet Count 245 X10*3/uL (160-400); Red Cell Distribution Width 12.1 % (11.0-16.0); White Blood Count 6.1 X10*3/uL (4.8-10.8)
[2023-01-02 13:34] LABS: Erythrocyte Sedimentation Rate 11 MM/HR (0-20)
[2023-01-02 14:17] LABS: Alanine Aminotransferase 9 U/L (0-31); Aspartate Amino Transferase 11 U/L (5-31); Estimated Glomerular Filt Rate > 60
== END 2023-01-02 11:27 | disposition home or self-care (01) ==
LOC: HO.LAB 11:26
PROVIDERS: PCP Internal Medicine; Visit Provider Nurse Practitioner Family
DX: M05.9 Rheumatoid arthritis with rheumatoid factor, unspecified (principal); Z79.899 Other long term (current) drug therapy
CPT/HCPCS: 36415; 82565; 84450; 84460; 85025; 85652; 86140

== ENCOUNTER 2023-01-03 08:40 | Outpatient (AMB) | payer OTHER, SELFPAY ==
[2023-01-03 08:42] VITALS: BP 126/72; PULSE 60; TEMP 36.2; BMI 32.4
--- NOTE | 2023-01-03 08:42 | MHC.OFFVIS ---
Intake Vital Signs 01/03/23 08:42 Height 5 ft 5 in Weight 194 lb 14.218 oz BMI 32.4 BP 126/72 Blood Pressure Location Rt brachial Position Sitting Pulse 60 Pulse Source Palpation Temp 97.2 F Intake Visit Reasons: rheumatoid arthritis Intake Note: Pt seen today for RA follow up. C/p back pain and hand pain [employer] Department Chair Required: Yes [employer] Department Chair Language: School Bus Dispatcher Name: Eric [id number] Accompanied by: Self / Same As Patient Allergies No Known Allergies [No Known Allergies*] Allergy (Verified 01/03/23 08:44) HPI HPI Comments History of Present Illness Details The patient returns for evaluation of her rheumatoid arthritis. Today's visit is assisted by the iPad translating service. She remains on hydroxychloroquine 200 mg twice a day, tramadol 50 b.i.d. if needed, cyclobenzaprine at night if the back problem bothers her, and Humira 40 mg every 2 weeks. She notes pain in the fingers and the lower back. Mostly it is lower back that seems to bother her more than the hands. This developed a few weeks ago. No discreete injury was noted. She probably has had previous episodes of back pain. However she has not had any Humira injections since the last week of November. She is awaiting delivery. The back pain seems to get better towards the end of the day. [facility] Medical History (Updated 01/03/23 @ 09:41 by Ray Early MD) CECI positive BMI 34.0-34.9,adult BMI 35.0-35.9,adult BMI 36.0-36.9,adult Essential hypertension GERD (gastroesophageal reflux disease) H. pylori infection Hepatomegaly Hyperparathyroidism Hypocalcemia Hypoparathyroidism Hypovitaminosis D Liver fibrosis Migraines Morbid obesity Nausea Obese Rheumatoid arthritis Seropositive rheumatoid arthritis Transaminitis Surgical History History of appendectomy Hx laparoscopic cholecystectomy S/P laparoscopic sleeve gastrectomy Family History Father No problems noted. Mother Rheumatoid arthritis Lupus Hypertension Brother No problems noted. Sister No problems noted. Sister No problems noted. Sister No problems noted. 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 medicare compliance auditor to a significant other at home: Yes ( amputee) Do you presently have visiting nurse or other home services: No Alcohol intake: never Patient Tobacco Use Status: Never used Tobacco e-Cigarette/Vaping Use: Never Used Second Hand Smoke Exposure: No service: No Current occupational status: employed Current occupational exposures/hazards: No Cognitive needs: No Hearing needs: No Vision needs: No Review of Systems Const Details: Some fatigue at times. Negative for appetite change, weight change, fever, chills, malaise Eyes Details: Negative for vision change, dry eyes,headaches and dizziness Skin/Breast Details: Negative for itching, rash, hives, Raynaud's symptoms, sun sensitivity, and skin cancer Neuro Details: Negative for epilepsy, palsy, stroke, changes in speech, tingling and weakness Endo Details: Negative for polyuria and polydypsia Min/Lymph Details: Negative for excessive bruising or bleeding. Physical Exam Vital Signs: Last Vital Signs Temp 97.2 F 01/03/23 08:42 Pulse 60 01/03/23 08:42 BP 126/72 01/03/23 08:42 BMI result Body Mass Index 32.4 APPEARANCE: Patient in no acute distress EYES no redness, pupils equal and reactive to light, eyelids normal EXTREMITIES: No edema, no calf tenderness, normal peripheral pulses. NEURO: Oriented and alert x3. No focal weakness. Reflexes symmetric. Gait normal. SKIN: No inflammatory or neoplastic lesions. Normal color and turgor JOINT EXAM: Cervical Spine:? Full range of motion without pain; no tenderness. Thoracic Spine: No scoliosis.? No tenderness on palpation. Lumbar Spine: Alignment normal.? Mild pain with flexion at 60 degrees. There is some mild paraspinal muscle tenderness. Hands:? LEFT: Normal pain-free range of motion with slight tenderness over the PIP joints. None of these seem to be swollen however. Other joints are without tenderness, swelling, increased warmth or erythema. There is no thenar atrophy or sensory loss. ? RIGHT:? Normal pain-free range of motion with slight tenderness across the thumb IP and the other PIP joints. These are not swollen however. Other joints have no tenderness, swelling, increased warmth or erythema.? There is no thenar atrophy or sensory loss. Wrists:? LEFT: Normal range of motion.? Slight tenderness but no swelling. No increased warmth or erythema. ? RIGHT:? Normal pain-free range of motion without tenderness, swelling, increased warmth or erythema.? Elbows: Normal pain-free range of motion without tenderness, swelling, increased warmth or erythema. Shoulders:?? Full range of motion without pain. No tenderness, weakness, swelling, increased warmth or erythema. Hips:? Full range of motion without pain. Hip bursa:? No tenderness. Knees:??LEFT: Normal pain-free range of motion. No tenderness, swelling, increased warmth or erythema.? There is no effusion or crepitation. ? RIGHT:? Normal pain free range of motion without tenderness, swelling, increased warmth or erythema.? There is no effusion or crepitation. Ankles:? Normal pain-free range of motion without tenderness, swelling, increased warmth or erythema. Feet:? Normal pain-free range of motion without tenderness, swelling, increased warmth or erythema. Tender points: Slight tenderness to digital palpation at the lateral epicondyle, knees, greater trochanter area bilaterally. ? 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 CCP po, RF negative. hydroxychloroquine started. Eye exam OK 03/2020, 07/2022. Cimzia added 12/23/[address] of Cimzia due to insurance preference 04/[address] Enbrel due to ineffectiveness Code(s): M05.9 - Rheumatoid arthritis with rheumatoid factor, unspecified Plan Rheumatoid arthritis with I think fairly good control of synovitis. There still is some PIP tenderness but there is no swelling notable. Additionally the sed rate and CRP are normal. She is having a bit more back pain recently. This could be because of missing the Humira dose which raises the question whether she could have a spondyloarthropathy. If the back pain continues for another few weeks it would be reasonable to do a lumbar spine film. She can call us back to order the xray or talk to her PCP if symptoms continue. She might benefit in that case from some physical therapy. The nursing staff will check on the pharmacy delivery of the Humira. We will continue with hydroxychloroquine and Humira as above. Follow-up in 5 months. Coding Level of Care Code Est Pt Level 3 (02072) Diagnoses Lower back pain M54.50 Long-term use of immunosuppressant medication Z79.60 Seropositive rheumatoid arthritis M05.9
== END 2023-01-03 09:09 | disposition home or self-care (01) ==
PROVIDERS: PCP Internal Medicine; Visit Provider Internal Medicine Rheumatology
DX: M54.50 Low back pain, unspecified (principal); Z79.60 Long term (current) use of unspecified immunomodulators and immunosuppressants; M05.79 Rheumatoid arthritis with rheumatoid factor of multiple sites without organ or systems involvement
CPT/HCPCS: 99213

== ENCOUNTER → 2023-01-03 08:40 | Outpatient (BNVA) | payer OTHER, SELFPAY | PROVIDERS: PCP Internal Medicine; Visit Provider Internal Medicine Rheumatology | DX: M05.9 Rheumatoid arthritis with rheumatoid factor, unspecified (principal); M54.50 Low back pain, unspecified; Z79.60 Long term (current) use of unspecified immunomodulators and immunosuppressants | CPT/HCPCS: 99212 ==

== ENCOUNTER 2023-04-29 07:35 | Emergency (ER) | payer OTHER, SELFPAY ==
--- NOTE | ~2023-04-29 | US_ITS ---
EXAMINATION: US VENOUS ULTRASOUND WITH DOPPLER LOWER EXTREMITY, RIGHT CLINICAL INFORMATION: Right lower extremity pain. COMPARISON: None available. TECHNIQUE: Ultrasound of the deep veins is performed from the hip to the calf with compression sonography and color and pulse Doppler assessment. Spectral analysis with color-flow imaging is performed. FINDINGS: There is normal venous compression and respiratory variation and augmented flow. The visualized common femoral vein, superficial femoral vein, profunda femoral vein, popliteal vein, and the trifurcation region shows no evidence of deep venous thrombosis. If the patient's symptoms persist, followup ultrasound in 5 days 7 days might be of value to exclude proximal propagation from a non-visualized calf vein. US/US venous duplex LE RT IMPRESSION: No DVT demonstrated in the right lower extremity.
[2023-04-29 07:41] VITALS: BP 173/93; PULSE 90; RESP 16; TEMP 37.1; O2SAT 100
--- NOTE | 2023-04-29 07:50 | ED.GENADULT ---
HPI - General Adult General Chief complaint: General Medical Stated complaint: R leg pain Time Seen by Provider: 04/29/23 07:43 Source: patient Mode of arrival: ambulatory History of Present Illness HPI narrative: This is a 37 years old female presented to the emergency department complaining of right lower extremity pain. She states that about 2 weeks ago he has been lower back pain then this morning she experienced pain from the right groin and down to the knee. She denies any other systemic symptoms you. She has not taken anything for the pain Onset (ago): day(s) (1) Location: lower extremity (rt) Severity: moderate Quality: burning Pain Consistency: constant Relieving factors: none Exacerbating factors: none Associated symptoms: denies other symptoms Related Data Previous Rx's Medication Instructions Recorded sucralfate 100 mg/mL oral 10 ml PO BID #400 mL 09/04/22 suspension cholecalciferol (vitamin D3) 125 125 mcg PO DAILY 90 days #90 caps 10/24/22 mcg (5,000 unit) capsule pantoprazole 40 mg tablet,delayed 40 mg PO DAILY 90 days #90 tabs 10/24/22 release sumatriptan succinate 50 mg tablet 50 mg PO Q2-4H PRN migraine 12/05/22 headache 30 days #9 tabs hydroxychloroquine 200 mg tablet 200 mg PO BID #60 tabs 01/26/23 diclofenac sodium 1 % topical gel 0.5 g transdermal TID 30 days #100 04/14/23 grams enalapril maleate 10 mg tablet 10 mg PO DAILY 90 days #90 tabs 04/14/23 tramadol 50 mg tablet 50 mg PO BID 30 days #60 tabs 04/14/23 adalimumab 40 mg/0.4 mL See Rx Instructions subcut 04/16/23 subcutaneous pen kit (Humira(CF) .COMPLEX #2 ea Pen) cyclobenzaprine 10 mg tablet 10 mg PO BEDTIME PRN muscle spasm 04/17/23 30 days #30 tabs naproxen 500 mg tablet (Naprosyn) 500 mg PO BID PRN PAIN #20 tabs 04/29/23 oxycodone 5 mg capsule 5 mg PO Q8H PRN pain #12 caps 04/29/23 Allergies Allergy/AdvReac Type Severity Reaction Status Date / Time No Known Allergies Allergy Verified 01/03/23 08:44 [No Known Allergies*] Review of Systems Constitutional: Constitutional: Reports no additional constitutional complaints Cardiovascular: Cardiovascular: Reports no additional cardiovascular complaints Gastrointestinal: Gastrointestinal: Reports no additional gastrointestinal complaints PMFSH Past Medical History Medical History Liver fibrosis Hepatomegaly Nausea Hyperparathyroidism BMI 34.0-34.9,adult BMI 35.0-35.9,adult BMI 36.0-36.9,adult H. pylori infection Hypovitaminosis D Morbid obesity Hypoparathyroidism Rheumatoid arthritis Obese Hypocalcemia Essential hypertension GERD (gastroesophageal reflux disease) Transaminitis CECI positive Seropositive rheumatoid arthritis Migraines Surgical History S/P laparoscopic sleeve gastrectomy Hx laparoscopic cholecystectomy History of appendectomy Family History Family History Father No problems noted. Mother Rheumatoid arthritis Lupus Hypertension Brother No problems noted. Sister No problems noted. Sister No problems noted. Sister No problems noted. Family/Other Fibromyalgia Osteoarthritis Other No family history of cancer Social History Social History Household Members: Spouse Housing: Apartment Are you a primary chiropractic care to a significant other at home: Yes ( amputee) Do you presently have visiting nurse or other home services: No Alcohol intake: never Patient Tobacco Use Status: Never used Tobacco e-Cigarette/Vaping Use: Never Used Second Hand Smoke Exposure: No Advance Directives: No Advance Directives Information Provided: No service: No Current occupational status: employed Current occupational exposures/hazards: No Cognitive needs: No Hearing needs: No Vision needs: No Physical Exam ED Vital Signs: Vital Signs - 24 hr 04/29/23 07:41 04/29/23 09:54 Temperature 98.7 F Pulse Rate 90 54 Respiratory Rate 16 14 Blood Pressure 173/93 H 149/53 H Pulse Oximetry 100 100 Oxygen Delivery Method Room Air Room Air BMI result Body Mass Index 30.0 Const General: cooperative, healthy appearing, comfortable, no acute distress, well developed, alert and awake Nutritional Appearance: well nourished Orientation/consciousness: patient oriented x3 Limitations: no limitations HENMT Head: Yes normal to inspection Face and sinus: Yes normal facial exam Neck Neck: Yes normal visual inspection Chest Chest palpation & inspection: normal inspection of the chest Resp Effort & Inspection: normal respiratory effort and able to speak in complete sentences Auscultation: clear to auscultation bilaterally Cardio Jugular venous distension: no JVD Rate: regular rate Rhythm: regular rhythm GI Inspection: Yes normal to inspection Palpation (GI): Soft to palpation, nontender, no guarding and not rigid Skin General skin exam: no rashes or lesions noted, elasticity normal and turgor normal Neuro Other: She has normal strength in the right lower extremity no deficit in sensation reflexes symmetrical 2+ in the knee 1+ in the ankle Babinski's negative. She has straight leg raising test positive 45 degree in the right. General: patient oriented x3 Cranial nerves: Yes CN's II-XII intact bilaterally Course Reevaluation(s) Reevaluation #1: She is feeling better at this time she is able to ambulate and neurologically intact ultrasound right leg negative for DVT, picture are more consistent with the right sciatica. The patient called the primary care physician and may need an outpatient MRI Time: 11:05 Medications Administered Discontinued Medications Generic Name Dose Route Start Last Admin Trade Name Freq PRN Reason Stop Dose Admin Naproxen 500 mg 04/29/23 07:48 04/29/23 08:09 Naproxen 500 Mg Tablet PO 04/29/23 07:49 500 mg ONCE ONE Administration Oxycodone HCl 10 mg 04/29/23 07:48 04/29/23 08:09 Oxycodone Hcl Immed Release 5 Mg Tablet PO 04/29/23 07:49 10 mg ONCE ONE Administration Medical Decision Making Medical Decision Making [facility] Narrative: Patient presented most likely with the sciatica, will provide analgesia, we will get an ultrasound of the legs as well to rule out DVT Differential Diagnosis Differential Diagnoses: The differential diagnosis associated with the presentation includes Sciatica/a DVT of the right lower extremity Discharge Plan Discharge Clinical Impression: Sciatica of right side Patient Disposition: Home, Self-Care Instructions: Sciatica (ED) Prescriptions: New oxycodone 5 mg capsule 5 mg PO Q8H PRN (Reason: pain) Qty: 12 0RF Rx Instructions: Partial Fill upon patient request. naproxen [Naprosyn] 500 mg tablet 500 mg PO BID PRN (Reason: PAIN) Qty: 20 0RF No Action pantoprazole 40 mg tablet,delayed release (DR/EC) 40 mg PO DAILY 90 Days Qty: 90 2RF cholecalciferol (vitamin D3) 125 mcg (5,000 unit) capsule 125 mcg PO DAILY 90 Days Qty: 90 1RF sumatriptan succinate 50 mg tablet 50 mg PO Q2-4H PRN (Reason: migraine headache) 30 Days Qty: 9 6RF Rx Instructions: do not exceed 4 doses per 24 hrs hydroxychloroquine 200 mg tablet 200 mg PO BID Qty: 60 5RF diclofenac sodium 1 % gel 0.5 g transdermal TID 30 Days Qty: 100 7RF enalapril maleate 10 mg tablet 10 mg PO DAILY 90 Days Qty: 90 1RF tramadol 50 mg tablet 50 mg PO BID 30 Days Qty: 60 0RF Humira(CF) Pen 40 mg/0.4 mL pen injector kit See Rx Instructions subcut .COMPLEX Qty: 2 4RF Hold Instructions: until discussed with Dr Franklin Rx Instructions: inject one - 40 mg/0.4 mL pen every 2 weeks subcut cyclobenzaprine 10 mg tablet 10 mg PO BEDTIME PRN (Reason: muscle spasm) 30 Days Qty: 30 4RF sucralfate 100 mg/mL suspension 10 ml PO BID Qty: 400 2RF Referrals: Ceci Bell MD [Primary Care Provider] - 2 days Stand Alone Forms: Work/School Release
[2023-04-29] MEDS: NaPROXEN 500 MG TABLET PO (08:09)
[2023-04-29] MEDS: oxyCODONE HCl Immed Release 5 MG TABLET 10 MG PO (08:09)
[2023-04-29 09:54] VITALS: BP 149/53; PULSE 54; RESP 14; O2SAT 100
== END 2023-04-29 11:31 | disposition home or self-care (01) ==
PROVIDERS: Emergency Provider Emergency Medicine; PCP Internal Medicine
DX: M54.31 Sciatica, right side (principal); R60.0 Localized edema
CPT/HCPCS: 93971; 99284

== ENCOUNTER 2023-06-04 11:13 | Outpatient (REF) | payer OTHER, SELFPAY ==
[2023-06-04 12:12] LABS: Estimated Glomerular Filt Rate > 60
== END 2023-06-04 11:14 | disposition home or self-care (01) ==
LOC: HO.LAB 11:13
PROVIDERS: PCP Internal Medicine; Referring Provider Internal Medicine Rheumatology; Visit Provider Nurse Practitioner Family
DX: M05.9 Rheumatoid arthritis with rheumatoid factor, unspecified (principal); Z79.899 Other long term (current) drug therapy
CPT/HCPCS: 36415; 82565

== ENCOUNTER 2023-06-06 08:21 | Outpatient (AMB) | payer OTHER, SELFPAY ==
--- NOTE | 2023-06-06 08:23 | MHC.OFFVIS ---
Intake Vital Signs 06/06/23 08:24 Height 5 ft 5 in Weight 194 lb 14.218 oz BMI 32.4 BP 120/84 Blood Pressure Location Lt brachial Position Sitting Pulse 82 Pulse Source Pulse Oximeter Intake Visit Reasons: ra Intake Note: Patient present today for RA follow up visit. Purification Operator Helper Required: Yes Purification Operator Helper Language: Irish Information Interpreted: non-clinical & clinical Accompanied by: Self / Same As Patient Allergies No Known Allergies [No Known Allergies*] Allergy (Verified 06/06/23 08:28) Medication List - Last Reconciled 06/06/23 by Ray Early MD adalimumab (Humira(CF) Pen) inject one - 40 mg/0.4 mL pen every 2 weeks subcut cholecalciferol (vitamin D3) 125 mcg PO DAILY 90 days cyclobenzaprine 10 mg PO BEDTIME PRN 30 days diclofenac sodium 1% 0.5 grams transdermal TID 30 days enalapril maleate 10 mg PO DAILY 90 days hydroxychloroquine 200 mg PO BID pantoprazole 40 mg PO DAILY 90 days sucralfate 10 mL PO BID sumatriptan succinate 50 mg PO Q2-4H PRN 30 days tramadol 50 mg PO BID 30 days HPI HPI Comments History of Present Illness Details The patient returns for evaluation of her rheumatoid arthritis. The visit was assisted through the iPad translating service. She remains on hydroxychloroquine 200 mg b.i.d. and Humira 40 mg every 2 weeks. She says she had an eye exam earlier this year to monitor the hydroxychloroquine use and it was okay. She gets occasional aching in the fingers and the right knee. She was in the ER however last month with some right leg pain. This seems to be in the right thigh, right groin and radiated to the knee. It was worse with weight-bearing activity. The patient does have naproxen and tramadol available to her that seemed to help her to some degree although symptoms are still present they are not as severe. [facility] Medical History (Updated 06/05/23 @ 19:35 by Ray Early MD) Liver fibrosis Hepatomegaly Nausea Hyperparathyroidism BMI 34.0-34.9,adult BMI 35.0-35.9,adult BMI 36.0-36.9,adult H. pylori infection Hypovitaminosis D Morbid obesity Hypoparathyroidism Rheumatoid arthritis Obese Hypocalcemia Essential hypertension GERD (gastroesophageal reflux disease) Transaminitis ELEAZAR positive Seropositive rheumatoid arthritis Migraines Surgical History S/P laparoscopic sleeve gastrectomy Hx laparoscopic cholecystectomy History of appendectomy Family History Father No problems noted. Mother Rheumatoid arthritis Lupus Hypertension Brother No problems noted. Sister No problems noted. Sister No problems noted. Sister No problems noted. 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 occasional caregiver to a significant other at home: Yes ( amputee) Do you presently have visiting nurse or other home services: No Alcohol intake: never Patient Tobacco Use Status: Never used Tobacco e-Cigarette/Vaping Use: Never Used Second Hand Smoke Exposure: No service: No Current occupational status: employed Current occupational exposures/hazards: No Cognitive needs: No Hearing needs: No Vision needs: No Review of Systems Const Details: Negative for appetite change, weight change, fever, chills, malaise and fatigue Eyes Details: Negative for vision change, dry eyes,headaches and dizziness ENT Details: Negative for hearing change, tinnitus, oral ulcer, nose bleeds and oral dryness. Card Details: Negative chest pain, edema and syncope Resp Details: Negative for SOB, cough and wheezing GI Details: Negative indigestion/heartburn, nausea, abdominal pain, bowel changes, diarrhea, constipation and bloody stool. Skin/Breast Details: Negative for itching, rash, hives, Raynaud's symptoms, sun sensitivity, and skin cancer Neuro Details: Negative for epilepsy, palsy, stroke, changes in speech, tingling and weakness Endo Details: Negative for polyuria and polydypsia Min/Lymph Details: Negative for excessive bruising or bleeding. Physical Exam Vital Signs: Last Vital Signs Pulse 82 06/06/23 08:24 BP 120/84 06/06/23 08:24 BMI result Body Mass Index 32.4 APPEARANCE: Patient in no acute distress EYES no redness, pupils equal and reactive to light, eyelids normal EXTREMITIES: No edema, no calf tenderness, normal peripheral pulses. NEURO: Oriented and alert x3. No focal weakness. Reflexes symmetric. Gait normal. SKIN: No inflammatory or neoplastic lesions. Normal color and turgor JOINT EXAM: Cervical Spine:? Full range of motion without pain; no tenderness. Thoracic Spine: No scoliosis.? No tenderness on palpation. Lumbar Spine: Alignment normal.? Mild pain with flexion at 60 degrees. There is some mild paraspinal muscle tenderness. Hands:? LEFT: Normal pain-free range of motion with slight tenderness over the PIP joints. None of these seem to be swollen however. Other joints are without tenderness, swelling, increased warmth or erythema. There is no thenar atrophy or sensory loss. ? RIGHT:? Normal pain-free range of motion with slight tenderness across the thumb IP and the other PIP joints. These are not swollen however. Other joints have no tenderness, swelling, increased warmth or erythema.? There is no thenar atrophy or sensory loss. Wrists:? LEFT: Normal range of motion.? Slight tenderness but no swelling. No increased warmth or erythema. ? RIGHT:? Normal pain-free range of motion without tenderness, swelling, increased warmth or erythema.? Elbows: Normal pain-free range of motion without tenderness, swelling, increased warmth or erythema. Shoulders:?? Full range of motion without pain. No tenderness, weakness, swelling, increased warmth or erythema. Hips:? Right: There is some mild groin and lateral pain with extremes of normal internal or external rotation. However motion seems to be intact. There is no groin tenderness. Left: Full range of motion without pain. Hip bursa:? No tenderness. Knees:??LEFT: Normal pain-free range of motion. No tenderness, swelling, increased warmth or erythema.? There is no effusion or crepitation. ? RIGHT:? Normal pain free range of motion with some mild medial compartment tenderness. There is no crepitus, effusion, swelling, increased warmth or erythema.? Ankles:? Normal pain-free range of motion without tenderness, swelling, increased warmth or erythema. Feet:? Normal pain-free range of motion without tenderness, swelling, increased warmth or erythema. Tender points: Slight tenderness to digital palpation at the lateral epicondyle, knees, greater trochanter area bilaterally. ? Results Reviewed Results Reviewed: Laboratory Tests 01/02/23 01/02/23 06/04/23 11:43 11:43 11:19 WBC 6.1 Hgb 12.3 ESR 11 Creatinine 0.70 C-Reactive Protein 0.10 Assessment & Plan Assessment & Plan (1) Long-term use of immunosuppressant medication: Code(s): Z79.60 - terminal carman (current) use of unspecified immunomodulators and immunosuppressants (2) Seropositive rheumatoid arthritis: Comment: Onset 2018. CCP po, RF negative. hydroxychloroquine started. Eye exam OK 03/2020, 07/2022. Cimzia added 12/23/[address] of Cimzia due to insurance preference 04/[address] Enbrel due to ineffectiveness Code(s): M05.9 - Rheumatoid arthritis with rheumatoid factor, unspecified Plan Rheumatoid arthritis with not much on peripheral exam to suggest active inflammation. However she is having some right groin and knee pains. I suspect the knee may have some mild OA present as intermittent positional pain has been there for a long time but the buttock and groin pain are new. This suggests suggest hip joint pathology. There could also be referred pain from lumbar degenerative disease. We will check x-rays of the hip and knee on the right. I am going to recheck her labs as well. For now we will stay with current treatment and plan revisit in about 4 or 5 months.. Orders: Orders Erythrocyte Sedimentation Rate Today M05.9 - Rheumatoid arthritis with rheumatoid factor, unspecified XR hip RT min 2V Today M05.9 - Rheumatoid arthritis with rheumatoid factor, unspecified, M25.551 - Pain in right hip C Reactive Protein Today M05.9 - Rheumatoid arthritis with rheumatoid factor, unspecified Complete Blood Count Auto Diff Today Z79.899 - Other retirement (current) drug therapy XR knee RT 3V Today M05.9 - Rheumatoid arthritis with rheumatoid factor, unspecified, M25.561 - Pain in right knee Coding Level of Care Code Est Pt Level 3 (03706) Diagnoses Long-term use of immunosuppressant medication Z79.60 Seropositive rheumatoid arthritis M05.9
[2023-06-06 08:24] VITALS: BP 120/84; PULSE 82; BMI 32.4
== END 2023-06-06 08:50 | disposition home or self-care (01) ==
PROVIDERS: PCP Internal Medicine; Visit Provider Internal Medicine Rheumatology
DX: M05.79 Rheumatoid arthritis with rheumatoid factor of multiple sites without organ or systems involvement (principal); Z79.60 Long term (current) use of unspecified immunomodulators and immunosuppressants
CPT/HCPCS: 99213

== ENCOUNTER → 2023-06-06 08:21 | Outpatient (BNVA) | payer OTHER, SELFPAY | PROVIDERS: PCP Internal Medicine; Visit Provider Internal Medicine Rheumatology | DX: M05.9 Rheumatoid arthritis with rheumatoid factor, unspecified (principal); Z79.60 Long term (current) use of unspecified immunomodulators and immunosuppressants | CPT/HCPCS: 99212 ==

== ENCOUNTER 2023-10-09 10:18 | Outpatient (REF) | payer OTHER, SELFPAY ==
--- NOTE | ~2023-10-09 | XR_ITS ---
EXAMINATION: XR HIP, RIGHT CLINICAL INFORMATION: Rheumatoid arthritis with rheumatoid factor. COMPARISON: None available. TECHNIQUE: AP and frog-leg lateral views of the right hip. FINDINGS: No fracture. Alignment is anatomic. Hip joint space is maintained. Soft tissues are unremarkable. A pelvic surgical clip is seen. XR/XR hip RT min 2V IMPRESSION: Normal right hip.
--- NOTE | ~2023-10-09 | XR_ITS ---
EXAMINATION: XR KNEE, RIGHT CLINICAL INFORMATION: Rheumatoid arthritis and rheumatoid factor. COMPARISON: None available. TECHNIQUE: AP, lateral and sunrise views of the right knee are submitted. FINDINGS: No fracture or joint effusion. Alignment is anatomic. Joint spaces are maintained. No abnormal soft tissue calcification. XR/XR knee RT 3V IMPRESSION: Normal right knee.
[2023-10-09 10:33] LABS: MANUAL DIFF FLAG NO
[2023-10-09 10:46] LABS: Basophils Absolute Auto 0.1 X10*3/uL (0.0-0.2); Basophils Percent Auto 0.9 % (0-2); Eosinophils Percent Auto 0.3 % (0-4); Hematocrit 41.3 % (37.0-47.0); Hemoglobin 13.2 g/dl (12.0-16.0); Imm Gran Abs Auto 0.01 X10*3/uL (0.00-0.03); Imm Gran Pct Auto 0.1 % (0.0-0.4); Lymphocytes Absolute Auto 2.3 X10*3/uL (1.2-4.9); Lymphocytes Percent Auto 34.6 % (20-40); Mean Corpuscular Hemoglobin 28.3 pg (27.0-33.0); Mean Corpuscular Volume 88.4 fL (80.0-98.0); Mean Platelet Volume 10.2 fL (9.4-12.3); Monocytes Absolute Auto 0.5 X10*3/uL (0.1-1.2); Monocytes Percent Auto 7.9 % (2-11); Neutrophils Absolute Auto 3.7 x10*3/uL (2.0-8.3); Neutrophils Percent Auto 56.2 % (45-73); Platelet Count 260 X10*3/uL (160-400); Red Blood Count 4.67 X10*6/uL (4.20-5.50); Red Cell Distribution Width 12.6 % (11.0-16.0); White Blood Count 6.7 X10*3/uL (4.8-10.8)
[2023-10-09 11:25] LABS: Alanine Aminotransferase 6 U/L (0-31); Alkaline Phosphatase 50 U/L (39-117); Anion Gap 9 (12-20); Aspartate Amino Transferase 11 U/L (5-31); Bilirubin Total 0.6 mg/dL (0.0-1.0); Blood Urea Nitrogen 15 mg/dL (9-16); C Reactive Protein < 0.10 mg/dL (< or = 0.50); Carbon Dioxide 27 mmol/L (22-29); Chloride 107 mmol/L (96-108); Estimated Glomerular Filt Rate > 60; Glucose Random 76 mg/dL (60-115); Potassium 3.9 mmol/L (3.3-5.1); Sodium 139 mmol/L (135-145); Total Protein 7.4 g/dL (6.5-8.0)
[2023-10-09 11:43] LABS: Erythrocyte Sedimentation Rate 10 MM/HR (0-20)
== END 2023-10-09 10:19 | disposition home or self-care (01) ==
LOC: HO.XRAY 10:18
PROVIDERS: Nurse Practitioner Family; PCP Internal Medicine; Visit Provider Internal Medicine Rheumatology
DX: M05.9 Rheumatoid arthritis with rheumatoid factor, unspecified (principal); M25.551 Pain in right hip; M25.561 Pain in right knee; Z79.899 Other long term (current) drug therapy; Z79.60 Long term (current) use of unspecified immunomodulators and immunosuppressants
CPT/HCPCS: 36415; 73502; 73562; 80053; 85025; 85652; 86140

== ENCOUNTER 2023-10-29 13:20 | Outpatient (AMB) | payer OTHER, SELFPAY ==
[2023-10-29 13:24] VITALS: BP 124/80; BMI 30.9
--- NOTE | 2023-10-29 13:24 | MHC.PC.OV ---
Vital Signs 10/29/23 13:24 Height 5 ft 5 in Weight 186 lb BMI 30.9 BP 124/80 Blood Pressure Location Lt brachial Position Sitting Intake Visit Reasons: physical exam Intake Note: Patient here for a follow up Law Enforcement Director Required: No Accompanied by: Self / Same As Patient Allergies No Known Allergies [No Known Allergies*] Allergy (Verified 10/29/23 13:35) Medication List - Last Reconciled 10/29/23 by Ceci Orozco MD cholecalciferol (vitamin D3) 125 mcg PO DAILY 90 days cyclobenzaprine 10 mg PO BEDTIME PRN 30 days diclofenac sodium 1% 0.5 grams transdermal TID 30 days enalapril maleate 10 mg PO DAILY 90 days Humira(CF) Pen (adalimumab) 40 mg (0.4 mL) subcut Q2W NS hydroxychloroquine 200 mg PO BID pantoprazole 40 mg PO DAILY 90 days sucralfate 10 mL PO BID sumatriptan succinate 50 mg PO Q2-4H PRN 30 days tramadol 50 mg PO BID 30 days Tobacco use date assessed: 10/29/23 Dental Screening Dental Screen Date: 10/29/23 Did you have a dental visit in the last 12 months?: No Did you have a dental problem in the last 6 months where you did not have access to dental care?: No Was dental information given to patient?: Patient has dentist HPI HPI Comments History of Present Illness Details This is a 38-year-old female with seropositive rheumatoid arthritis follow by Rheumatology that comes for her physical exam. Has never had a mammogram and will be ordered. Last Pap smear was about 1.5 years ago at [facility] and he was normal. No chest pain or shortness of breath. Complains of low back pain radiating to both legs that started few days ago. No fever, bowel or bladder incontinence. Rheumatoid arthritis stable with Humira. [facility] Medical History (Updated 10/29/23 @ 13:50 by Ceci Orozco MD) Liver fibrosis Hepatomegaly Nausea Hyperparathyroidism BMI 34.0-34.9,adult BMI 35.0-35.9,adult BMI 36.0-36.9,adult H. pylori infection Hypovitaminosis D Morbid obesity Hypoparathyroidism Rheumatoid arthritis Obese Hypocalcemia Essential hypertension GERD (gastroesophageal reflux disease) Transaminitis CECI positive Seropositive rheumatoid arthritis Migraines Surgical History S/P laparoscopic sleeve gastrectomy Hx laparoscopic cholecystectomy History of appendectomy Family History (Updated 10/29/23 @ 13:38 by Ceci Orozco MD) Father CAD (coronary artery disease) Mother Rheumatoid arthritis Lupus Hypertension Brother No problems noted. Sister No problems noted. Sister No problems noted. Sister No problems noted. 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 family day care provider to a significant other at home: Yes ( amputee) Do you presently have visiting nurse or other home services: No Alcohol intake: never Patient Tobacco Use Status: Never used Tobacco e-Cigarette/Vaping Use: Never Used Second Hand Smoke Exposure: No service: No Current occupational status: employed Current occupational exposures/hazards: No Cognitive needs: No Hearing needs: No Vision needs: No Questionnaire PHQ-9 Over the last 2 weeks, how often have you been bothered by any of the following problems? 1. Little interest or pleasure in doing things: not at all 2. Feeling down, depressed, or hopeless: not at all 3. Trouble falling or staying asleep, or sleeping too much: not at all 4. Feeling tired or having little energy: not at all 5. Poor appetite or overeating: not at all 6. Feeling bad about yourself - or that you are a failure or have let yourself or your family down: not at all 7. Trouble concentrating on things, such as reading the newspaper or watching television: not at all 8. Moving or speaking so slowly that other people could have noticed. Or the opposite - being so fidgety or restless that you have been moving around a lot more than usual: not at all 9. Thoughts that you would be better off or of hurting yourself in some way: not at all Total score: 0 Depression Screening Interpretation: Negative Depression Screening Done: Yes 65665 - PHQ-9 Billing: Yes Source: Developed by Drs. Carlos Alfredo, Leela Singh, Ramiro Cooper and colleagues, with an educational brittney from [employer]. Thrive Questionnaire Date Thrive assessed: 10/29/23 I am a: Patient What is your living situation today?: I have a steady place to live Within the past 12 months, did the food you bought not last and you didn't have the money to get more?: Never true Within the past 12 months, did you worry whether your food would run out before you got money to buy more?: Never true Do you have trouble paying for medicines?: No Do you have trouble getting transportation to medical appointments?: No Do you have trouble paying your heating and electricity bill?: No Do you have trouble taking care of your child, family member or friend?: No Do you have trouble with day-to-day activities such as bathing, preparing meals, shopping, managing finances, etc.?: No Are you currently unemployed and looking for a job?: No Are you interested in more education?: No Please select the resources that you would like help with: None Currently or been in a relationship where the following occur: no concerns reported THRIVE Score: 0 AUDIT C Alcohol Use Questionnaire (AUDIT-C) 1. How often do you have a drink containing alcohol?: Never Total Score: 0 Score Reviewed/Action Taken: No KEDAR-7 AMB Questionnaire KEDAR-7 Date KEDAR - 7 assessed: 10/29/23 Feeling nervous, anxious, or on edge: 0 = Not at all Not being able to stop or control worryin = Not at all Worrying too much about different things: 0 = Not at all Trouble relaxin = Not at all Being so restless that it is hard to sit still: 0 = Not at all Becoming easily annoyed or irritable: 0 = Not at all Feeling afraid as if something awful might happen: 0 = Not at all Total KEDAR-7 score (0-4 normal; 5-9 mild; 10-14 moderate; 15-21 severe): 0 Source: Developed by Drs. Carlos Alfredo, Leela Singh, Ramiro Cooper and colleagues, with an educational brittney from [employer]. KEDAR-7 Assessment Billing KEDAR-7 Assessment Tool: KEDAR-7 Assessment 17862 Review of Systems Const All systems reviewed & are unremarkable except as noted in HPI and below Eyes Reports no additional complaints, Denies change in vision and Denies other visual disturbances Card Denies chest pain at rest, Denies chest pain with activity, Denies edema, Denies irregular heart rhythm, Denies claudication, Denies dyspnea, Denies dyspnea on exertion, Denies orthopnea, Denies paroxysmal nocturnal dyspnea and Denies slow heart rate Resp Denies cough, Denies dyspnea and Denies dyspnea on exertion GI Denies abdominal pain, Denies change in bowel habits, Denies excessive flatus, Denies nausea and Denies vomiting Musc Reports back pain and Reports radiating pain into limb Physical exam (Primary Care) Vital Signs: Last Vital Signs BP 124/80 10/29/23 13:24 BMI result Body Mass Index 30.9 Tobacco/Smoking Status: Tobacco use Status Tobacco use date assessed 10/29/23 10/29/23 13:30 Patient Tobacco Use Status Never used Tobacco 10/29/23 13:30 e-Cigarette/Vaping Use Never Used 10/29/23 13:30 PHQ-9: PHQ-9 Score PHQ-9: Total score 0 10/29/23 13:30 Depression Screening Interpretation: Negative Thrive Assessment: Date of Thrive Assessment Date Thrive assessed 10/29/23 10/29/23 13:30 Currently or been in a relationship where the following occur: no concerns reported Const Orientation/consciousness: patient oriented x3 HENMT Head: Yes normal to inspection, Yes normocephalic and Yes atraumatic Ears: external ears normal Neck Neck: Yes normal visual inspection and Yes supple Resp Effort & Inspection: normal respiratory effort Auscultation: clear to auscultation bilaterally Cardio Jugular venous distension: no JVD Rate: regular rate Rhythm: regular rhythm Heart sounds: S1 normal heart sound present and S2 normal heart sound present GI Inspection: Yes normal to inspection Palpation (GI): Soft to palpation and nontender Auscultation: normal bowel sounds Back/Spine/Pelvis Back: back tenderness Thoracic/Lumbar Spine: straight leg raise positive bilateral at 60 degrees Skin General skin exam: no rashes or lesions noted Neuro General: patient oriented x3 and no focal motor deficits Extrem General: Yes full ROM Psych Appearance: grossly normal Assessment and Plan Assessment & Plan (1) Physical exam: Code(s): Z00.00 - Encounter for general adult medical examination without abnormal findings Plan: Repeat in a year. (2) Seropositive rheumatoid arthritis: Comment: Onset 2018. CCP po, RF negative. hydroxychloroquine started. Eye exam OK 03/2020, 07/2022. Cimzia added 12/23/[address] of Cimzia due to insurance preference 04/[address] of Enbrel due to ineffectiveness Code(s): M05.9 - Rheumatoid arthritis with rheumatoid factor, unspecified Plan: Continue Humira. Orders: Orders Vitamin B1 Today E51.9 - Thiamine deficiency, unspecified Comprehensive [place]. Panel Fast Today I10 - Essential (primary) hypertension MM screening mammo BI Today Z12.31 - Encounter for screening mammogram for malignant neoplasm of breast Vitamin D 25-OH Total Today E55.9 - Vitamin D deficiency, unspecified Vitamin A Today E50.9 - Vitamin A deficiency, unspecified Lipid Panel Today I10 - Essential (primary) hypertension XR lumbar spine 2-3V Today M54.50 - Low back pain, unspecified Medications: Refilled tramadol 50 mg PO BID 30 days 60 tabs 0RF cyclobenzaprine 10 mg PO BEDTIME 30 days PRN 30 tabs 4RF muscle spasm Coding Level of Care Code Est Pt Prev Care 40-64y(68327) Diagnoses Physical exam Z00.00 Seropositive rheumatoid arthritis M05.9 Additional Codes KEDAR-7 Assessment Billing - KEDAR-7 Assessment Tool: KEDAR-7 Assessment 44985 ([id number]) Time Spent (min) 33
== END 2023-10-29 13:54 | disposition home or self-care (01) ==
PROVIDERS: PCP Internal Medicine; Visit Provider Internal Medicine
DX: Z00.00 Encounter for general adult medical examination without abnormal findings (principal); M05.9 Rheumatoid arthritis with rheumatoid factor, unspecified
CPT/HCPCS: 99396

== ENCOUNTER 2023-11-04 10:12 | Outpatient (AMB) | payer OTHER, SELFPAY ==
[2023-11-04 10:35] VITALS: BP 130/72; PULSE 76; TEMP 36.6; O2SAT 98; BMI 30.9
--- NOTE | 2023-11-04 10:35 | MHC.OFFWIV ---
Intake Vital Signs 11/04/23 10:35 Height 5 ft 5 in Weight 186 lb BMI 30.9 BP 130/72 Blood Pressure Location Rt brachial Position Sitting Pulse 76 Pulse Source Pulse Oximeter Temp 97.9 F Temp Source Oral Pulse Oximetry (%) 98 Intake Visit Reasons: EST/ lower back pain (lobby) Intake Note: pt is here for lower back pain that travels down the leg Patient Tobacco Use Status: Never used Tobacco Allergies No Known Allergies [No Known Allergies*] Allergy (Verified 11/04/23 10:54) Medication List - Last Reconciled 11/04/23 by Gen Wilson MD cholecalciferol (vitamin D3) 125 mcg PO DAILY 90 days cyclobenzaprine 10 mg PO BEDTIME PRN 14 days diclofenac sodium 1% 0.5 grams transdermal TID 30 days enalapril maleate 10 mg PO DAILY 90 days Humira(CF) Pen (adalimumab) 40 mg (0.4 mL) subcut Q2W NS hydroxychloroquine 200 mg PO BID pantoprazole 40 mg PO DAILY 90 days sucralfate 10 mL PO BID sumatriptan succinate 50 mg PO Q2-4H PRN 30 days tramadol 50 mg PO BID 30 days Do you need a note to return to daycare/school/sports/work: No HPI EST/ lower back pain (lobby) HPI Details Patient presents to the office for a sick visit. Complaining of lower back pain for the past week. No history of fall or trauma prior to the onset of symptoms. No urinary incontinence. No fevers or chills. Pain is worse on bending forwards or sideways. Relieve done sitting down. Pain is radiating into the gluteal area. [facility] Medical History (Updated 11/04/23 @ 10:55 by Gen Wilson MD) Low back pain Liver fibrosis Hepatomegaly Nausea Hyperparathyroidism BMI 34.0-34.9,adult BMI 35.0-35.9,adult BMI 36.0-36.9,adult H. pylori infection Hypovitaminosis D Morbid obesity Hypoparathyroidism Rheumatoid arthritis Obese Hypocalcemia Essential hypertension GERD (gastroesophageal reflux disease) Transaminitis CECI positive Seropositive rheumatoid arthritis Migraines Surgical History S/P laparoscopic sleeve gastrectomy Hx laparoscopic cholecystectomy History of appendectomy Family History (Updated 10/29/23 @ 13:38 by Ceci Orozco MD) Father CAD (coronary artery disease) Mother Rheumatoid arthritis Lupus Hypertension Brother No problems noted. Sister No problems noted. Sister No problems noted. Sister No problems noted. 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 patient care director to a significant other at home: Yes ( amputee) Do you presently have visiting nurse or other home services: No Alcohol intake: never Patient Tobacco Use Status: Never used Tobacco e-Cigarette/Vaping Use: Never Used Second Hand Smoke Exposure: No service: No Current occupational status: employed Current occupational exposures/hazards: No Cognitive needs: No Hearing needs: No Vision needs: No Physical Exam Vital Signs: Last Vital Signs Temp 97.9 F 11/04/23 10:35 Pulse 76 11/04/23 10:35 BP 130/72 11/04/23 10:35 Pulse Ox 98 11/04/23 10:35 BMI result Body Mass Index 30.9 General: Yes no CVA tenderness Back/Spine/Pelvis Back: no CVA tenderness Thoracic/Lumbar Spine: No paraspinal muscle tenderness Assessment & Plan Assessment & Plan (1) Low back pain: Code(s): M54.50 - Low back pain, unspecified Plan: Note for work given. cyclobenzaprine called in. . Patient was advised rest. Note for work if necessary provided. Once pain symptoms subside, patient should start physical therapy. If symptoms worsen to follow-up here. Medications: Changed From cyclobenzaprine 10 mg PO BEDTIME PRN 30 tabs 4RF muscle spasm 30 days To cyclobenzaprine 10 mg PO BEDTIME PRN 14 tabs 0RF muscle spasm 14 days Coding Level of Care Code Est Pt Level 3 (63646) Diagnoses Low back pain M54.50
== END 2023-11-04 11:28 | disposition home or self-care (01) ==
PROVIDERS: PCP Internal Medicine; Visit Provider Internal Medicine
DX: M54.50 Low back pain, unspecified (principal)
CPT/HCPCS: 99213

== ENCOUNTER 2023-11-05 09:53 | Outpatient (REF) | payer OTHER, SELFPAY ==
--- NOTE | ~2023-11-05 | XR_ITS ---
EXAMINATION: XR LUMBOSACRAL SPINE CLINICAL INFORMATION: Low back pain, unspecified COMPARISON: None available. TECHNIQUE: Three views of the lumbosacral spine. FINDINGS: There 5 nonrib-bearing lumbar-type vertebral bodies. The height of vertebral bodies is well-maintained. There is mild curve of the lumbar spine, convex right. There is straightening of the usual lumbar lordosis which can be seen with muscle spasm. There is no significant disc space narrowing. There is mild retrolisthesis of L4 with respect to L5. Surgical clips and anastomotic sutures are seen in the left upper quadrant. Surgical clips are seen in the right upper quadrant. Single surgical clip is seen in the center the pelvis. XR/XR lumbar spine 2-3V IMPRESSION: 1. Muscle spasm. 2. Mild curve of the lumbar spine, convex right. 3. Mild retrolisthesis of L4 with respect to L5.
== END 2023-11-05 09:54 | disposition home or self-care (01) ==
LOC: HO.XRAY 09:53
PROVIDERS: PCP Internal Medicine; Visit Provider Internal Medicine
DX: M62.830 Muscle spasm of back (principal); M43.16 Spondylolisthesis, lumbar region; M43.8X6 Other specified deforming dorsopathies, lumbar region
CPT/HCPCS: 72100

== ENCOUNTER 2023-11-19 09:22 | Outpatient (REF) | payer OTHER, SELFPAY ==
--- NOTE | ~2023-11-19 | MM_ITS ---
EXAMINATION: MM SCREENING DIGITAL BREAST TOMOSYNTHESIS, BILATERAL CLINICAL INFORMATION: Screening. Asymptomatic. COMPARISON: Mammography: This is a baseline examination. TECHNIQUE: Digital breast tomosynthesis is performed in both the craniocaudal and mediolateral oblique views along with computer-aided detection (CAD). Synthesized 2D images are generated from the tomosynthesis. FINDINGS: There are scattered areas of fibroglandular density (ACR BI-RADS breast composition Category b). There are no significant masses, abnormal calcifications, or other abnormalities. MM/MM tomosynthesis screening BI IMPRESSION: No mammographic evidence of malignancy. ASSESSMENT: BI-RADS BI-RADS 1 - Negative RECOMMENDATION: Routine annual mammography screening. 1 year F/U This examination should not preclude the clinical evaluation of a suspicious palpable abnormality. This patient's information was entered into a reminder system with a target due date for their next mammogram.
== END 2023-11-19 09:23 | disposition home or self-care (01) ==
LOC: HO.MAMMO 09:22
PROVIDERS: PCP Internal Medicine; Visit Provider Internal Medicine
DX: Z12.31 Encounter for screening mammogram for malignant neoplasm of breast (principal)
CPT/HCPCS: 77063; 77067

== ENCOUNTER → 2023-11-19 09:30 | Outpatient (BNV) | payer OTHER, SELFPAY | PROVIDERS: PCP Internal Medicine; Visit Provider Radiology Diagnostic Radiology | DX: Z12.31 Encounter for screening mammogram for malignant neoplasm of breast (principal) | CPT/HCPCS: 77063; 77067 ==

== ENCOUNTER 2023-12-10 08:32 | Outpatient (AMB) | payer OTHER, SELFPAY ==
[2023-12-10 08:34] VITALS: BP 142/92; PULSE 104; O2SAT 99; BMI 32.3
--- NOTE | 2023-12-10 08:34 | A.OFFVIS_ITS ---
Vital Signs 12/10/23 08:34 Height 5 ft 5 in Weight 194 lb 3.636 oz BMI 32.3 BP 142/92 H Blood Pressure Location Rt brachial Position Sitting Pulse 104 H Pulse Source Pulse Oximeter Pulse Oximetry (%) 99 Oxygen Delivery Method Room Air Intake Visit Reasons: ra Intake Note: Patient last seen 06/06/[address] Early, presents today for follow up. Adventure Challenge Instructor Required: Yes Adventure Challenge Instructor Language: Senior Engineer Name: [id number] Graciela Information Interpreted: non-clinical & clinical Accompanied by: Self / Same As Patient Allergies No Known Allergies [No Known Allergies*] Allergy (Verified 12/10/23 08:38) HPI Comments Details: Ms. John 38yoF returns for follow-up of her rheumatoid arthritis. The visit was assisted through the [employer] translating service. She remains on hydroxychloroquine 200 mg b.i.d. and Humira 40 mg every 2 weeks. She says she had an eye exam earlier 2022 to monitor the hydroxychloroquine use and it was okay and should be having an upcoming exam soon. She gets occasional aching in the right wrist/thumb and the right knee. The patient does have naproxen and tramadol available to her that seemed to help her to some degree although symptoms are still present they are not as severe. 05/2023 Dr. Early The patient returns for evaluation of her rheumatoid arthritis. The visit was assisted through the [employer] translating service. She remains on hydroxychloroquine 200 mg b.i.d. and Humira 40 mg every 2 weeks. She says she had an eye exam earlier this year to monitor the hydroxychloroquine use and it was okay. She gets occasional aching in the fingers and the right knee. She was in the ER however last month with some right leg pain. This seems to be in the right thigh, right groin and radiated to the knee. It was worse with w eight-bearing activity. The patient does have naproxen and tramadol available to her that seemed to help her to some degree although symptoms are still present they are not as severe. [facility] Medical History (Updated 12/10/23 @ 09:01 by VLADIMIR Marie-MARISELA) De Quervain's tenosynovitis, right Low back pain Liver fibrosis Hepatomegaly Nausea Hyperparathyroidism BMI 34.0-34.9,adult BMI 35.0-35.9,adult BMI 36.0-36.9,adult H. pylori infection Hypovitaminosis D Morbid obesity Hypoparathyroidism Rheumatoid arthritis Obese Hypocalcemia Essential hypertension GERD (gastroesophageal reflux disease) Transaminitis CECI positive Seropositive rheumatoid arthritis Migraines Surgical History S/P laparoscopic sleeve gastrectomy Hx laparoscopic cholecystectomy History of appendectomy Family History (Updated 10/29/23 @ 13:38 by Ceci Orozco MD) Father CAD (coronary artery disease) Mother Rheumatoid arthritis Lupus Hypertension Brother No problems noted. Sister No problems noted. Sister No problems noted. Sister No problems noted. 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 a significant other at home: Yes ( amputee) Do you presently have visiting nurse or other home services: No Alcohol intake: never Patient Tobacco Use Status: Never used Tobacco e-Cigarette/Vaping Use: Never Used Second Hand Smoke Exposure: No service: No Current occupational status: employed Current occupational exposures/hazards: No Cognitive needs: No Hearing needs: No Vision needs: No Review of Systems Const All systems reviewed & are unremarkable except as noted in HPI and below Physical Exam Vital Signs: Last Vital Signs Pulse 104 H 12/10/23 08:34 BP 142/92 H 12/10/23 08:34 Pulse Ox 99 12/10/23 08:34 Oxygen Delivery Method Room Air 12/10/23 08:34 BMI result Body Mass Index 32.3 APPEARANCE: Patient in no acute distress EYES no redness, pupils equal and reactive to light, eyelids normal EXTREMITIES: No edema, no calf tenderness, normal peripheral pulses. NEURO: Oriented and alert x3. No focal weakness. Reflexes symmetric. Gait normal. SKIN: No inflammatory or neoplastic lesions. Normal color and turgor JOINT EXAM: Cervical Spine:? Full range of motion without pain; no tenderness. Thoracic Spine: No scoliosis.? No tenderness on palpation. Lumbar Spine: Alignment normal.? Mild pain with flexion at 60 degrees. There is some mild paraspinal muscle tenderness. Hands:? LEFT: Normal pain-free range of motion with slight tenderness over the PIP joints. None of these seem to be swollen however. Other joints are without tenderness, swelling, increased warmth or erythema. There is no thenar atrophy or sensory loss. ? RIGHT:? Normal pain-free range of motion with slight tenderness across the thumb IP and the other PIP joints. These are not swollen however. Other joints have no tenderness, swelling, increased warmth or erythema.? There is no thenar atrophy or sensory loss. Wrists:? LEFT: Normal range of motion.? Slight tenderness but no swelling. No increased warmth or erythema. ? RIGHT:? Normal pain-free range of motion without tenderness, swelling, increased warmth or erythema.? Elbows: Normal pain-free range of motion without tenderness, swelling, increased warmth or erythema. Shoulders:?? Full range of motion without pain. No tenderness, weakness, swelling, increased warmth or erythema. Hips:? Right: There is some mild groin and lateral pain with extremes of normal internal or external rotation. However motion seems to be intact. There is no groin tenderness. Left: Full range of motion without pain. Hip bursa:? No tenderness. Knees:??LEFT: Normal pain-free range of motion. No tenderness, swelling, increased warmth or erythema.? There is no effusion or crepitation. ? RIGHT:? Normal pain free range of motion with some mild medial compartment tenderness. There is no crepitus, effusion, swelling, increased warmth or erythema.? Ankles:? Normal pain-free range of motion without tenderness, swelling, increased warmth or erythema. Feet:? Normal pain-free range of motion without tenderness, swelling, increased warmth or erythema. Tender points: Slight tenderness to digital palpation at the lateral epicondyle, knees, greater trochanter area bilaterally. ? Office Procedures Tendon Injection Tendon Injection Details: Right DeQuervain Tendonitis - Right Radial Wrist Kenalog 40 mg [id number] Tendon Sheath Injection All charges added?: Procedure code (CPT) selection complete Results Reviewed Results Reviewed: Laboratory Tests 10/09/23 10:31 WBC 6.7 RBC 4.67 Hgb 13.2 Hct 41.3 ESR 10 Creatinine 0.74 Estimated GFR > 60 AST 11 ALT 6 C-Reactive Protein < 0.10 Assessment & Plan Assessment & Plan (1) Long-term use of immunosuppressant medication: Code(s): Z79.60 - MCC (current) use of unspecified immunomodulators and immunosuppressants Category: Medical (2) Seropositive rheumatoid arthritis: Comment: Onset 2018. CCP po, RF negative. hydroxychloroquine started. Eye exam OK 03/2020, 07/2022. Cimzia added 12/23/[address] of Cimzia due to insurance preference 04/[address] Enbrel due to ineffectiveness Code(s): M05.9 - Rheumatoid arthritis with rheumatoid factor, unspecified Category: Medical (3) De Quervain's tenosynovitis, right: Code(s): M65.4 - Radial styloid tenosynovitis [de Quervain] Category: Medical Plan #Rheumatoid arthritis with no clinical symptoms to suggest active inflammation. ESR/CRP within normal range. Continue Humira 40mg Q2W and HCQ 200mg BID #Right DeVain Tendonitis: Aseptic technique; Kenalog 40mg. Patient tolerated Procedure well. Explained to patient this can be from overuse and not nec essarily that the medications are not working. She works at [employer]. I recommend a thumb splint for mild symptoms that can help to stabilize the thumb during work when it cam be most painful. #Detention Use: 09/2023 Labs within normal range to continue medications. Will Recheck one week before next visit. Patient knows to hold HUMIRA in the event of infection, fevers, surgery or non-healing wounds. 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
== END 2023-12-10 09:06 | disposition home or self-care (01) ==
PROVIDERS: PCP Internal Medicine; Visit Provider Nurse Practitioner Family
DX: M05.79 Rheumatoid arthritis with rheumatoid factor of multiple sites without organ or systems involvement (principal); Z79.60 Long term (current) use of unspecified immunomodulators and immunosuppressants; M65.4 Radial styloid tenosynovitis [de Quervain]
CPT/HCPCS: 20550; 99214

== ENCOUNTER → 2023-12-10 08:32 | Outpatient (BNVA) | payer OTHER, SELFPAY | PROVIDERS: PCP Internal Medicine; Visit Provider Nurse Practitioner Family | DX: M05.9 Rheumatoid arthritis with rheumatoid factor, unspecified (principal); M65.4 Radial styloid tenosynovitis [de Quervain]; Z79.620 Long term (current) use of immunosuppressive biologic | CPT/HCPCS: 20550; 99212; J3301 ==

== ENCOUNTER 2024-05-01 11:50 | Emergency (ER) | payer OTHER, SELFPAY ==
--- NOTE | ~2024-05-01 | XR_ITS ---
EXAMINATION: XR LUMBOSACRAL SPINE CLINICAL INFORMATION: Pancreas the right lower extremity COMPARISON: X-ray dated November 05, 2023 TECHNIQUE: Three views of the lumbosacral spine. FINDINGS: No acute cortical disruption or gross malalignment. No lytic or blastic lesions. S-shaped curvature of the thoracolumbar spine. Vascular clips in the left upper abdomen and overlapping the right lateral aspect of L2. XR/XR lumbar spine 2-3V IMPRESSION: No acute fracture or listhesis. If patient's symptoms persist recommend MRI lumbar spine. Electronically signed by: Tonny Caballero MD 05/01/2024 01:06 PM [facility]
[2024-05-01 12:10] VITALS: BP 164/85; PULSE 68; RESP 18; TEMP 36.7; O2SAT 100; BMI 33.1
--- NOTE | 2024-05-01 12:11 | ED.GENADULT ---
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 Pain will occasionally radiate down the outer aspect of her right thigh. Describes the pain as a burning sensation. reports history of similar in the past. was told she had inflammation and was prescribed tramadol and flexeril with improvement. she's been taking these at home over the last few weeks without relief. Admits to starting a new job at [employer] where she is standing for prolonged periods of time. Reports this exacerbates her back pain. denies blunt trauma or injury to the back. Denies numbness/tingling/weakness down the LE. Denies saddle anesthesia, bowel or bladder incontinence or retention. denies hx of spinal surgery. denies hx of IVDU. denies fever/chills, n/v, dysuria, hematuria, flank pain. Related Data Previous Rx's ?Medication ?Instructions ?Recorded hydroxychloroquine 200 mg tablet 200 mg PO BID #60 tabs 01/26/23 sucralfate 100 mg/mL oral 10 ml PO BID #400 mL 12/30/23 suspension pantoprazole 40 mg tablet,delayed 40 mg PO DAILY 90 days #90 tabs 03/06/24 release Humira(CF) Pen 40 mg/0.4 mL 40 mg (0.4 mL) subcut Q2W #2 ea 03/30/24 subcutaneous kit (adalimumab) cholecalciferol (vitamin D3) 125 125 mcg PO DAILY 90 days #90 caps 04/13/24 mcg (5,000 unit) capsule cyclobenzaprine 10 mg tablet 10 mg PO BEDTIME PRN muscle spasm 04/26/24 14 days #14 tabs diclofenac sodium 1 % topical gel 0.5 g transdermal TID 30 days #100 04/26/24 grams enalapril maleate 10 mg tablet 10 mg PO DAILY 90 days #90 tabs 04/26/24 sumatriptan succinate 50 mg tablet 50 mg PO Q2-4H PRN migraine 04/26/24 headache 30 days #9 tabs tramadol 50 mg tablet 50 mg PO BID 30 days #60 tabs 04/26/24 naproxen 500 mg tablet 500 mg PO Q12H PRN pain (scale 05/01/24 score 4-6) #20 tabs prednisone 20 mg tablet 40 mg (2 x 20 mg) PO DAILY 4 days 05/01/24 #8 tabs Allergies Allergy/AdvReac Type Severity Reaction Status Date / Time No Known Allergies Allergy Verified 05/01/24 12:14 [No Known Allergies*] Review of Systems Review of Systems: Constitutional: No fever, chills, fatigue, night sweats, weight changes ENT/Mouth: No ear pain, hearing loss, nasal congestion, sinus pain, rhinorrhea, sore throat Eyes: No eye pain, swelling, redness, vision changes, discharge Cardio: No chest pain, palpitations, ALMANZAR, orthopnea, peripheral edema Pulm: No SOB, cough, sputum, wheezing, dyspnea, hemoptysis GI: No nausea, vomiting, hematemesis, abdominal pain, diarrhea, constipation, hematochezia, melena : No irregular bleeding, dysuria, frequency, urgency, hesitancy, hematuria, flank pain, urinary flow changes, urinary incontinence or retention MSK: +back pain, No neck pain, joint pain, myalgias Skin: No lesions, rashes Neuro: No weakness, numbness, paresthesias, LOC, dizziness, headache All other systems reviewed and are negative. [facility] Past Medical History Attestation statement: The following information was validated with the patient. Source: old records reviewed and nursing notes reviewed Medical History De Quervain's tenosynovitis, right Low back pain Liver fibrosis Hepatomegaly Nausea Hyperparathyroidism BMI 34.0-34.9,adult BMI 35.0-35.9,adult BMI 36.0-36.9,adult H. pylori infection Hypovitaminosis D Morbid obesity Hypoparathyroidism Rheumatoid arthritis Obese Hypocalcemia Essential hypertension GERD (gastroesophageal reflux disease) Transaminitis CECI positive Seropositive rheumatoid arthritis Migraines Surgical History S/P laparoscopic sleeve gastrectomy Hx laparoscopic cholecystectomy History of appendectomy Family History Family History Father CAD (coronary artery disease) Mother Rheumatoid arthritis Lupus Hypertension Brother No problems noted. Sister No problems noted. Sister No problems noted. Sister No problems noted. 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 a significant other at home: Yes ( amputee) Do you presently have visiting nurse or other home services: No Alcohol intake: never Patient Tobacco Use Status: Never used Tobacco e-Cigarette/Vaping Use: Never Used Second Hand Smoke Exposure: No Advance Directives: No Advance Directives Information Provided: Yes Do you have a plan to hurt others: No Plan service: No Current occupational status: employed Current occupational exposures/hazards: No Cognitive needs: No Hearing needs: No Vision needs: No Physical Exam ED Vital Signs: Vital Signs - 24 hr 05/01/24 12:10 05/01/24 13:40 05/01/24 14:12 Temperature 98.1 F 97.7 F 97.7 F Pulse Rate 68 98 98 Respiratory Rate 18 16 16 Blood Pressure 164/85 H 150/86 H 150/86 H Pulse Oximetry 100 98 98 Oxygen Delivery Method Room Air Room Air Room Air BMI result Body Mass Index 33.1 hypertensive, vitals otherwise wnl General: Well appearing, in no acute distress. Skin: Warm, dry, intact. No rashes or lesions. Head: Normocephalic, atraumatic. EENT: Hearing is intact b/l. Conjunctiva clear. Moist mucous membranes.? Cardiac: Chest wall symmetric. RRR Lungs: Normal respiratory effort without accessory muscle use. CTA bilaterally. Abdomen: Soft, non-tender, non-distended. No rebound tenderness or guarding. Positive BS x4. no cvat. Back: No midline spinous or paraspinal tenderness. No step off deformity. positive straight leg raise when lifting left leg. Ext: Upper and lower extremities atraumatic, without tenderness, deformity, swelling or erythema. Full ROM throughout. Neuro: AOx3. Normal speech. Strength 5/5 intact throughout. No saddle anesthesia. Sensation intact to light touch. NV intact distally. Reflexes 2+ bilaterally. Ambulating with steady gait. Psych: Appropriate mood and affect. Responds appropriately to questions. Course Course Course Narrative: This is an RME done by RAEGAN Manuel: Additional HPI, ROS, PE not included below will be deferred to primary provider. 38-year-old female presents with lower back pain with radiation to right lower extremity, atraumatic in nature. No numbness, tingling, fevers, chills. On exam patient ambulating with steady gait normal coordination. Discomfort to right side of back. Reevaluation(s) Reevaluation #1: XR without acute fracture. pain controlled with oxycodone in ED. physical exam findings are consistent with sciatica nerve pain. it sounds as though she has a history of this and has been treated for this in the past. has not undergone PT for this. will send prednisone and naproxen to pharmacy. advised to f/u with pcp for PT referral. Patient has remained stable throughout ED visit today. Discussed worrisome signs and symptoms and when to return to the ED. All questions answered at this time. Patient is agreeable with disposition and stable for discharge. Medications Administered Discontinued Medications Generic Name Dose Route Start Last Admin Trade Name Freq PRN Reason Stop Dose Admin Oxycodone HCl 5 mg 05/01/24 13:03 05/01/24 13:20 Oxycodone Hcl Immed Release 5 Mg Tablet PO 05/01/24 13:04 5 mg ONCE ONE Administration Prednisone 40 mg 05/01/24 13:03 05/01/24 13:20 Prednisone 20 Mg Tablet PO 05/01/24 13:04 40 mg ONCE ONE Administration Medical Decision Making Medical Decision Making MDM Narrative: 38 year old female with pmhx significant for HTN, GERD, RA, adjustment disorder presents to the ED today for evaluation of right lower back pain x3 weeks. Hypertensive, vitals otherwise wnl. she is nontoxic appearing and in nad. on exam, there is no midline spinous tenderness or step off deformity. no paraspinal mm tenderness. there is positive straight leg test when lifting the left leg. no cvat. sensation and strength intact throughout. ambulating with steady gait. nv intact distally. Differential diagnosis includes MSK sprain/strain, fracture, subluxation, disc herniation, sciatica. Unlikely cord compression, cauda equina, Guillain-Oliver, epidural abscess. Plan for imaging, pain control, and re-evaluation. Differential Diagnosis Differential Diagnoses: The differential diagnosis associated with the presentation includes as above Admission/Observation Not indicated. Independent Interpretation I performed an independent interpretation of an: Plain X-Ray Interpretation: xr lumbar spine without acute fracture Radiology Impression Discussion of test interpretation with radiology: I have reviewed the radiologist's reading. Radiologist Impression: EXAMINATION: XR LUMBOSACRAL SPINE CLINICAL INFORMATION: Pancreas the right lower extremity COMPARISON: X-ray dated November 05, 2023 TECHNIQUE: Three views of the lumbosacral spine. FINDINGS: No acute cortical disruption or gross malalignment. No lytic or blastic lesions. S-shaped curvature of the thoracolumbar spine. Vascular clips in the left upper abdomen and overlapping the right lateral aspect of L2. XR/XR lumbar spine 2-3V IMPRESSION: No acute fracture or listhesis. If patient's symptoms persist recommend MRI lumbar spine. Electronically signed by: Tonny Caballero MD 05/01/2024 01:06 PM [facility] [place], [place] Independent Historian Clinical information obtained from an independent historian. History obtained from or confirmed by: Spouse () External Record Review External record reviewed: Inpatient record Prescription Management I considered prescription management with: Pain Medication (naproxen) and Other (prednisone) Social Determinants Patient?s care significantly limited by Social Determinants of Health including: Other Social Determinant of Health Critical Care Time Critical Care Time Critical Care Time: No Discharge Plan Discharge Clinical Impression: Sciatic nerve pain Patient Disposition: Home, Self-Care Instructions: Sciatica (ED), Back Pain (ED), Lower Back Exercises (ED) Additional Instructions: Your xrays today are reassuring. No evidence of fracture. As discussed, you physical exam is consistent with sciatica. Prednisone as a steroid that has been sent to your pharmacy. Please take this over next 4 days starting tomorrow as you already received a dose in the ED today. Naproxen is an anti-inflammatory that has been sent to your pharmacy. Take this as needed for pain. Do not take this with other NSAIDs such as ibuprofen or Aleve as this can cause increased risk of GI bleeding. You will likely require physical therapy. Please follow up with your primary care provider who can provide you with a referral. Return with new or worsening symptoms. In the case of an emergency call 911. Prescriptions: New prednisone 20 mg tablet 40 mg PO DAILY 4 Days Qty: 8 0RF naproxen 500 mg tablet 500 mg PO Q12H PRN (Reason: pain (scale score 4-6)) Qty: 20 0RF No Action hydroxychloroquine 200 mg tablet 200 mg PO BID Qty: 60 5RF sucralfate 100 mg/mL suspension 10 ml PO BID Qty: 400 1RF pantoprazole 40 mg tablet,delayed release (DR/EC) 40 mg PO DAILY 90 Days Qty: 90 2RF Humira(CF) Pen 40 mg/0.4 mL pen injector kit 40 mg subcut Q2W Qty: 2 2RF cholecalciferol (vitamin D3) 125 mcg (5,000 unit) capsule 125 mcg PO DAILY 90 Days Qty: 90 4RF diclofenac sodium 1 % gel 0.5 g transdermal TID 30 Days Qty: 100 7RF enalapril maleate 10 mg tablet 10 mg PO DAILY 90 Days Qty: 90 1RF sumatriptan succinate 50 mg tablet 50 mg PO Q2-4H PRN (Reason: migraine headache) 30 Days Qty: 9 6RF Rx Instructions: do not exceed 4 doses per 24 hrs tramadol 50 mg tablet 50 mg PO BID 30 Days Qty: 60 0RF cyclobenzaprine 10 mg tablet 10 mg PO BEDTIME PRN (Reason: muscle spasm) 14 Days Qty: 14 0RF Referrals: Ceci Bell MD [Primary Care Provider] - Stand Alone Forms: Work/School Release Interventions: ED Discharge Assessment Last Done: 05/01/24 14:12 Discharge Date/Time: 05/01/24 14:13 Print Language: Guinean
[2024-05-01] MEDS: predniSONE 20 MG TABLET 40 MG PO (13:20)
[2024-05-01] MEDS: oxyCODONE HCl Immed Release 5 MG TABLET PO (13:20)
[2024-05-01 13:40] VITALS: BP 150/86; PULSE 98; RESP 16; TEMP 36.5; O2SAT 98
[2024-05-01 14:12] VITALS: BP 150/86; PULSE 98; RESP 16; TEMP 36.5; O2SAT 98
== END 2024-05-01 14:13 | disposition home or self-care (01) ==
PROVIDERS: Emergency Provider Emergency Medicine; PCP Internal Medicine
DX: M54.41 Lumbago with sciatica, right side (principal); I10 Essential (primary) hypertension; Z79.899 Other long term (current) drug therapy
CPT/HCPCS: 72100; 99283

== ENCOUNTER → 2024-05-01 12:10 | Outpatient (BNV) | payer OTHER, SELFPAY | PROVIDERS: Emergency Provider Emergency Medicine; PCP Internal Medicine; Visit Provider Radiology Diagnostic Radiology | DX: M54.50 Low back pain, unspecified (principal) | CPT/HCPCS: 72100 ==

== ENCOUNTER 2024-05-05 08:09 | Outpatient (AMB) | payer OTHER, SELFPAY ==
--- NOTE | 2024-05-05 08:12 | MHC.PC.OV ---
Vital Signs 05/05/24 08:17 Height 5 ft 5 in Weight 205 lb BMI 34.1 BP 136/80 Blood Pressure Location Lt brachial Position Sitting Intake Visit Reasons: ra Intake Note: Patient here for a follow up RA Chemical Dependency Counselor Required: No Accompanied by: Self / Same As Patient Allergies No Known Allergies [No Known Allergies*] Allergy (Verified 05/05/24 08:26) Medication List - Last Reconciled 05/05/24 by Ceci Orozco MD cholecalciferol (vitamin D3) 125 mcg PO DAILY 90 days cyclobenzaprine 10 mg PO BEDTIME PRN 14 days diclofenac sodium 1% 0.5 grams transdermal TID 30 days enalapril maleate 10 mg PO DAILY 90 days Humira(CF) Pen (adalimumab) 40 mg (0.4 mL) subcut Q2W NS hydroxychloroquine 200 mg PO BID naproxen 500 mg PO Q12H PRN pantoprazole 40 mg PO DAILY 90 days sucralfate 10 mL PO BID sumatriptan succinate 50 mg PO Q2-4H PRN 30 days tramadol 50 mg PO BID 30 days Tobacco use date assessed: 10/29/23 Dental Screening Dental Screen Date: 10/29/23 HPI HPI Comments History of Present Illness Details This is a 38-year-old female with rheumatoid arthritis, hypertension and GERD that comes today complaining of low back pain radiating to the right leg associated with right leg numbness and tingling that started about 3 weeks ago with no previous trauma. She went to ER and had an x-ray done showing no acute abnormality. Denies any fever, bowel or bladder incontinence. She can not walk straight and has to be bend forward to feel some relief. Has tried naproxen, prednisone and tramadol with no relief. I will start her on physical therapy and give her oxycodone for few days. Patient aware she can not use tramadol while using oxycodone. Patient also aware that can cause addiction, sedation and constipation. Rheumatoid arthritis is follow by Rheumatology and has been stable with hydroxychloroquine and Humira. Blood pressure well controlled with enalapril. GERD stable with medications. No chest pain or shortness on breath. She has gained some weight with BMI of 34.1 and was advised to do diet and exercise to reach BMI goal less than 30. [facility] Medical History (Updated 05/05/24 @ 08:49 by Ceci Orozco MD) De Quervain's tenosynovitis, right Low back pain Liver fibrosis Hepatomegaly Nausea Hyperparathyroidism BMI 34.0-34.9,adult BMI 35.0-35.9,adult BMI 36.0-36.9,adult H. pylori infection Hypovitaminosis D Morbid obesity Hypoparathyroidism Rheumatoid arthritis Obese Hypocalcemia Essential hypertension GERD (gastroesophageal reflux disease) Transaminitis CECI positive Seropositive rheumatoid arthritis Migraines Surgical History S/P laparoscopic sleeve gastrectomy Hx laparoscopic cholecystectomy History of appendectomy Family History Father CAD (coronary artery disease) Mother Rheumatoid arthritis Lupus Hypertension Brother No problems noted. Sister No problems noted. Sister No problems noted. Sister No problems noted. 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 healthcare translator to a significant other at home: Yes ( amputee) Do you presently have visiting nurse or other home services: No Alcohol intake: never Patient Tobacco Use Status: Never used Tobacco e-Cigarette/Vaping Use: Never Used Second Hand Smoke Exposure: No service: No Current occupational status: employed Current occupational exposures/hazards: No Cognitive needs: No Hearing needs: No Vision needs: No Questionnaire Thrive Questionnaire Date Thrive assessed: 10/29/23 KEDAR-7 AMB Questionnaire KEDAR-7 Date KEDAR - 7 assessed: 10/29/23 Source: Developed by Drs. Carlos Alfredo, Leela Singh, Ramiro Cooper and colleagues, with an educational brittney from [employer]. Review of Systems Const All systems reviewed & are unremarkable except as noted in HPI and below Card Denies chest pain at rest, Denies chest pain with activity, Denies edema, Denies irregular heart rhythm, Denies claudication, Denies dyspnea, Denies dyspnea on exertion, Denies orthopnea, Denies paroxysmal nocturnal dyspnea and Denies slow heart rate Resp Denies cough, Denies dyspnea and Denies dyspnea on exertion GI Denies abdominal pain, Denies change in bowel habits, Denies excessive flatus, Denies nausea and Denies vomiting Musc Reports back pain, Reports numbness, Reports radiating pain into limb and Reports tingling Neuro Reports numbness and Reports tingling Physical exam (Primary Care) Vital Signs: Last Vital Signs BP 136/80 05/05/24 08:17 BMI result Body Mass Index 34.1 BMI Assessment/Plan discussion: High BMI High, discussed plan: lifestyle, weight reduction, dietary and physical activity Tobacco/Smoking Status: Tobacco use Status Tobacco use date assessed 10/29/23 05/05/24 08:17 Patient Tobacco Use Status Never used Tobacco 05/05/24 08:17 e-Cigarette/Vaping Use Never Used 05/05/24 08:17 Thrive Assessment: Date of Thrive Assessment Date Thrive assessed 10/29/23 05/05/24 08:17 Const General: in distress mild Nutritional Appearance: obese Resp Effort & Inspection: normal respiratory effort Auscultation: clear to auscultation bilaterally Cardio Jugular venous distension: no JVD Rate: regular rate Rhythm: regular rhythm Heart sounds: S1 normal heart sound present and S2 normal heart sound present Back/Spine/Pelvis Thoracic/Lumbar Spine: straight leg raise positive right at 30 degrees Office Procedures Flu Questionnaire Does the patient have a severe egg allergy?: No Does the patient have severe life threatening allergies?: No Does the patient have a fever or illness today?: No Has the patient ever had Guillain-Burkburnett Syndrome?: No Has the patient ever had any past reaction to a flu shot?: No Immunizations Fluarix Triv [id number] (PF) 45 mcg (15 mcg x 3)/0.5 mL IM syringe Performing Provider: Ceci Orozco MD Performing [facility] [place] [place] [facility] Administered by: TAMRA Webb on 05/05/24 08:34 Dose Route Admin Location Dispensed Lot Number Expiration Date [facility] Electric Organ Checker 0.5 mL IM Left Deltoid 0.5 mL [id number] 12/21/24 [id number] Quote Roller VIS Given Date VIS Provided VIS Publication Date 05/05/24 Single Vaccine 21 Eligibility Eligibility Date Funding Source Not [facility] Eligible 05/05/24 Private Coding Level of Care Code Est Pt Level 4 (48927) Complex EM visit Add On G2211 Diagnoses Right sided sciatica M54.31 Seropositive rheumatoid arthritis M05.9 Essential hypertension I10 Gastroesophageal reflux disease, unspecified whether esophagitis present K21.9 Esophagitis presence: esophagitis presence not specified Time Spent (min) 22 Assessment & Plan Assessment & Plan (1) Right sided sciatica: Code(s): M54.31 - Sciatica, right side Category: Medical Plan: Start physical therapy. Start oxycodone as needed for a short amount of time. (2) Seropositive rheumatoid arthritis: Comment: Onset 2018. CCP po, RF negative. hydroxychloroquine started. Eye exam [place] 03/2020, 07/2022. Cimzia added 12/23/[address] of Cimzia due to insurance preference 04/[address] Enbrel due to ineffectiveness Code(s): M05.9 - Rheumatoid arthritis with rheumatoid factor, unspecified Category: Medical Plan: Continue Humira and hydroxychloroquine. Follow-up with rheumatology. (3) Essential hypertension: Code(s): I10 - Essential (primary) hypertension Category: Medical Plan: Continue enalapril. Blood pressure goal is equal or less than 130/80. (4) GERD (gastroesophageal reflux disease): Code(s): K21.9 - Gastro-esophageal reflux disease without esophagitis Category: Medical Qualifiers: Esophagitis presence: esophagitis presence not specified Qualified Code(s): K21.9 - Gastro-esophageal reflux disease without esophagitis Plan: Continue pantoprazole. Orders: Orders Influenza [id number] Immunization Today Z23 - Encounter for immunization PT Evaluation and Treatment Today M54.31 - Sciatica, right side Medications: New oxycodone Partial Fill upon patient request. 5 mg PO Q8H 7 days PRN 21 tabs 0RF pain On Hold tramadol Hold Comment: Doctor's Order 50 mg PO BID 30 days 60 tabs 0RF
[2024-05-05 08:17] VITALS: BP 136/80; BMI 34.1
== END 2024-05-05 08:40 | disposition home or self-care (01) ==
PROVIDERS: PCP Internal Medicine; Visit Provider Internal Medicine
DX: M54.31 Sciatica, right side (principal); M05.9 Rheumatoid arthritis with rheumatoid factor, unspecified; I10 Essential (primary) hypertension; K21.9 Gastro-esophageal reflux disease without esophagitis; Z23 Encounter for immunization

== ENCOUNTER → 2024-05-05 08:09 | Outpatient (BNVA) | payer OTHER, SELFPAY | PROVIDERS: PCP Internal Medicine; Visit Provider Internal Medicine | DX: Z23 Encounter for immunization (principal); M54.31 Sciatica, right side; M05.9 Rheumatoid arthritis with rheumatoid factor, unspecified; I10 Essential (primary) hypertension; K21.9 Gastro-esophageal reflux disease without esophagitis | CPT/HCPCS: 90471; 90656; 99212 ==

== ENCOUNTER 2024-06-10 08:45 | Outpatient (REF) | payer OTHER, SELFPAY ==
[2024-06-10 09:02] LABS: MANUAL DIFF FLAG NO
[2024-06-10 09:58] LABS: Basophils Absolute Auto 0.1 X10*3/uL (0.0-0.2); Basophils Percent Auto 1.3 % (0-2); Eosinophils Percent Auto 0.6 % (0-4); Imm Gran Abs Auto 0.01 X10*3/uL (0.00-0.03); Imm Gran Pct Auto 0.2 % (0.0-0.4); Lymphocytes Absolute Auto 2.2 X10*3/uL (1.2-4.9); Lymphocytes Percent Auto 34.6 % (20-40); Mean Corpuscular HGB Conc 32.5 g/dl (31.0-35.0); Mean Corpuscular Hemoglobin 28.6 pg (27.0-33.0); Mean Corpuscular Volume 88.1 fL (80.0-98.0); Mean Platelet Volume 9.9 fL (9.4-12.3); Monocytes Absolute Auto 0.6 X10*3/uL (0.1-1.2); Monocytes Percent Auto 8.7 % (2-11); Neutrophils Absolute Auto 3.5 x10*3/uL (2.0-8.3); Neutrophils Percent Auto 54.6 % (45-73); Platelet Count 285 X10*3/uL (160-400); Red Blood Count 4.54 X10*6/uL (4.20-5.50); Red Cell Distribution Width 11.9 % (11.0-16.0); White Blood Count 6.4 X10*3/uL (4.8-10.8)
[2024-06-10 10:31] LABS: Alanine Aminotransferase 19 U/L (0-31); Alkaline Phosphatase 44 U/L (39-117); Anion Gap 8 (12-20); Aspartate Amino Transferase 19 U/L (5-31); Bilirubin Total 0.5 mg/dL (0.0-1.0); Blood Urea Nitrogen 16 mg/dL (9-16); C Reactive Protein 0.11 mg/dL (< or = 0.50); Calcium 8.7 mg/dL (8.4-10.2); Carbon Dioxide 28 mmol/L (22-29); Chloride 107 mmol/L (96-108); Cholesterol 170 mg/dL (<200); Estimated Glomerular Filt Rate > 60; Glucose Fasting 82 mg/dL (60-99); Glucose Random 81 mg/dL (60-115); HDL Cholesterol 67 mg/dL (>40); LDL Cholesterol Calculated 96 mg/dL (<100); Potassium 3.8 mmol/L (3.3-5.1); Sodium 139 mmol/L (135-145); Total Protein 7.4 g/dL (6.5-8.0); Triglycerides 36 mg/dL (<150)
[2024-06-10 10:37] LABS: Erythrocyte Sedimentation Rate 12 MM/HR (0-20)
[2024-06-10 10:46] LABS: Vitamin D 25-OH Total 12.1 ng/mL (>30)
[2024-06-14 22:39] LABS: Vitamin A 43 mcg/dL (38-98)
[2024-06-15 06:38] LABS: IgA 281 mg/dL (47-310); IgG 1504 mg/dL (600-1640); IgM 176 mg/dL (50-300)
[2024-06-18 16:23] LABS: Vitamin B1 10 nmol/L (8-30)
== END 2024-06-10 08:46 | disposition home or self-care (01) ==
LOC: HO.LAB 08:45
PROVIDERS: PCP Internal Medicine; Visit Provider Nurse Practitioner Family
DX: M05.9 Rheumatoid arthritis with rheumatoid factor, unspecified (principal); Z79.60 Long term (current) use of unspecified immunomodulators and immunosuppressants; I10 Essential (primary) hypertension; E50.9 Vitamin A deficiency, unspecified; E55.9 Vitamin D deficiency, unspecified; E51.9 Thiamine deficiency, unspecified
CPT/HCPCS: 36415; 80053; 80061; 82306; 82784; 84425; 84590; 85025; 85652; 86140

== ENCOUNTER 2024-06-11 09:11 | Outpatient (AMB) | payer OTHER, SELFPAY ==
--- NOTE | 2024-06-11 09:20 | MHC.OFFVIS ---
Vital Signs 06/11/24 09:23 Height 5 ft 5 in Weight 208 lb 1.862 oz BMI 34.6 BP 124/80 Blood Pressure Location Lt brachial Position Sitting Pulse 80 Pulse Source Pulse Oximeter Pulse Oximetry (%) 98 Oxygen Delivery Method Room Air Intake Visit Reasons: RA/Right DeVain Tend Intake Note: Patient presents for RA/Right hand DeVain Tend. Buildings And Grounds Director Required: Yes Buildings And Grounds Director Language: [employer]: Buildings And Grounds Director Present Buildings And Grounds Director Name: Loco [id number] Information Interpreted: non-clinical & clinical Allergies No Known Allergies [No Known Allergies*] Allergy (Verified 06/11/24 09:22) Medication List - Last Reconciled 06/11/24 by Anette Campbell MD cholecalciferol (vitamin D3) 125 mcg PO DAILY 90 days cyclobenzaprine 10 mg PO BEDTIME PRN 14 days diclofenac sodium 1% 0.5 grams transdermal TID 30 days enalapril maleate 10 mg PO DAILY 90 days Humira(CF) Pen (adalimumab) 40 mg (0.4 mL) subcut Q2W NS hydroxychloroquine 200 mg PO BID naproxen 500 mg PO Q12H PRN oxycodone 5 mg PO Q8H PRN 7 days pantoprazole 40 mg PO DAILY 90 days sucralfate 10 mL PO BID sumatriptan succinate 50 mg PO Q2-4H PRN 30 days tramadol 50 mg PO BID 30 days HPI Comments Details: This is a 39-year-old female with seropositive RA who presents for follow-up. On hydroxychloroquine 200 mg Twice daily and Humira 40 mg every other week. She states that she has been having sciatica symptoms for 2-3 months. She was evaluated by her PCP and had an x-ray and referred to PT. She states that she will start PT towards the end of this month. She continues to have right buttock pain radiating down words. She had an injection for right hand de Quervain tenosynovitis. It has helped. She continues to have intermittent pain in this area. [facility] Medical History De Quervain's tenosynovitis, right Low back pain Liver fibrosis Hepatomegaly Nausea Hyperparathyroidism BMI 34.0-34.9,adult BMI 35.0-35.9,adult BMI 36.0-36.9,adult H. pylori infection Hypovitaminosis D Morbid obesity Hypoparathyroidism Rheumatoid arthritis Obese Hypocalcemia Essential hypertension GERD (gastroesophageal reflux disease) Transaminitis ELEAZAR positive Seropositive rheumatoid arthritis Migraines Surgical History S/P laparoscopic sleeve gastrectomy Hx laparoscopic cholecystectomy History of appendectomy Family History Father CAD (coronary artery disease) Mother Rheumatoid arthritis Lupus Hypertension Brother No problems noted. Sister No problems noted. Sister No problems noted. Sister No problems noted. 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 pharmacist critical care to a significant other at home: Yes ( amputee) Do you presently have visiting nurse or other home services: No Alcohol intake: never Patient Tobacco Use Status: Never used Tobacco e-Cigarette/Vaping Use: Never Used Second Hand Smoke Exposure: No service: No Current occupational status: employed Current occupational exposures/hazards: No Cognitive needs: No Hearing needs: No Vision needs: No Review of Systems Musc Reports back pain, Reports arthralgias and Reports radiating pain into limb Physical Exam Vital Signs: Last Vital Signs Pulse 80 06/11/24 09:23 BP 124/80 06/11/24 09:23 Pulse Ox 98 06/11/24 09:23 Oxygen Delivery Method Room Air 06/11/24 09:23 BMI result Body Mass Index 34.6 Const General: cooperative, healthy appearing and comfortable Nutritional Appearance: obese Orientation/consciousness: patient oriented x3 Limitations: no limitations HEENT Head: Yes normocephalic and Yes atraumatic Mouth: moist mucous membranes Resp Effort & Inspection: normal respiratory effort and able to speak in complete sentences Auscultation: clear to auscultation bilaterally Cardio Rate: regular rate Skin General skin exam: no rashes or lesions noted Neuro General: patient oriented x3 Extrem Other: Mildly positive Amy's test right hand No swelling at the radial area however No active synovitis otherwise noted both hands and wrists Normal pain-free range of motion of elbows and shoulders Positive straight leg raise test on the right Right buttock tenderness Assessment & Plan Assessment & Plan (1) Seropositive rheumatoid arthritis: Comment: Onset 2019 -ve RF +CCP HCQ started. Eye exam [place] 03/2020, 07/2022. Cimzia added 12/23/[address] of Cimzia due to insurance preference 04/[address] of Enbrel due to ineffectiveness Code(s): M05.9 - Rheumatoid arthritis with rheumatoid factor, unspecified Category: Medical Plan: This is a 39-year-old female with seropositive RA who presents for follow-up. On hydroxychloroquine 200 mg Twice daily and Humira 40 mg every other week. Doing well overall with no active synovitis. Continue current meds as prescribed Labs before next visit in 4 months (2) De Quervain's tenosynovitis, right: Code(s): M65.4 - Radial styloid tenosynovitis [de Quervain] Category: Medical Plan: Symptoms improved after steroid injection done by Cheryle Sosa last visit. Advised patient to apply Voltaren gel 3 to 4 times a day to the affected area, (3) Long-term use of immunosuppressant medication: Code(s): Z79.60 - FDC (current) use of unspecified immunomodulators and immunosuppressants Category: Medical Plan: Side effects of Humira were discussed with the patient in detail including increased risk of infection, demyelinating disease, reactivation of latent TB, possible increased risk of solid and skin tumors. Patient fully aware. Advised patient to seek medical care [facility] if patient has an infection and advised patient to stop the medication until the infection is resolved. (4) Encounter for monitoring of hydroxychloroquine therapy: Code(s): Z51.81 - Encounter for therapeutic drug level monitoring; Z79.899 - Other long term care social worker (current) drug therapy Category: Medical Plan: Patient's last eye exam was in 2022. Advised patient to make an appointment with her lock and dam repairer as soon as possible (5) Vitamin D deficiency: Code(s): E55.9 - Vitamin D deficiency, unspecified Category: Medical Plan: Low vitamin-D level, she was prescribed vitamin-D by her PCP. Advised patient to start taking it Plan I spent 30 minutes reviewing patient's chart, evaluating patient, ordering diagnostic workup, counseling patient and documenting in the chart Orders: Orders Comprehensive Met. Panel 4 Months M05.9 - Rheumatoid arthritis with rheumatoid factor, unspecified Erythrocyte Sedimentation Rate 4 Months M05.9 - Rheumatoid arthritis with rheumatoid factor, unspecified Hepatitis A,B,C Profile 4 Months Z11.59 - Encounter for screening for other viral diseases T Spot TB 4 Months Z11.7 - Encounter for testing for latent tuberculosis infection Vitamin D 25-OH Total 4 Months E55.9 - Vitamin D deficiency, unspecified Complete Blood Count Auto Diff 4 Months M05.9 - Rheumatoid arthritis with rheumatoid factor, unspecified C Reactive Protein 4 Months M05.9 - Rheumatoid arthritis with rheumatoid factor, unspecified Coding Level of Care Code Est Pt Level 4 (25257) Complex EM visit Add On G2211 Diagnoses Seropositive rheumatoid arthritis M05.9 De Quervain's tenosynovitis, right M65.4 Long-term use of immunosuppressant medication Z79.60 Encounter for monitoring of hydroxychloroquine therapy Z51.81; Z79.899 Vitamin D deficiency E55.9
[2024-06-11 09:23] VITALS: BP 124/80; PULSE 80; O2SAT 98; BMI 34.6
== END 2024-06-11 09:44 | disposition home or self-care (01) ==
PROVIDERS: PCP Internal Medicine; Visit Provider Student in an Organized Health Care Education/Training Program
DX: M05.79 Rheumatoid arthritis with rheumatoid factor of multiple sites without organ or systems involvement (principal); M65.4 Radial styloid tenosynovitis [de Quervain]; Z79.60 Long term (current) use of unspecified immunomodulators and immunosuppressants; Z51.81 Encounter for therapeutic drug level monitoring; Z79.899 Other long term (current) drug therapy; E55.9 Vitamin D deficiency, unspecified
CPT/HCPCS: 99214; G2211

== ENCOUNTER → 2024-06-11 09:11 | Outpatient (BNVA) | payer SELFPAY | PROVIDERS: PCP Internal Medicine; Visit Provider Student in an Organized Health Care Education/Training Program | DX: M05.9 Rheumatoid arthritis with rheumatoid factor, unspecified (principal); M65.4 Radial styloid tenosynovitis [de Quervain]; R76.8 Other specified abnormal immunological findings in serum; E55.9 Vitamin D deficiency, unspecified; Z79.899 Other long term (current) drug therapy; Z79.620 Long term (current) use of immunosuppressive biologic; Z51.81 Encounter for therapeutic drug level monitoring | CPT/HCPCS: 99212 ==

== ENCOUNTER 2024-07-16 08:02 | Outpatient (RCR) | payer OTHER, SELFPAY ==
--- NOTE | 2024-06-23 12:23 | MHC.PT.EP ---
[facility] [place] Office [place] Office [place] Office [address] [phone] F: [phone] F: [phone] F: [phone] F: [phone] Physical Therapy Plan of Care Date of Evaluation: 06/23/24 Date of Surgery: Diagnosis: RIGHT SIDED SCIATICA Assessment: Pt is a 39 yo female who reports worsening right low back symptoms and radiculopathy . Skilled PT indicated to address muscular imbalances including hip/core weakness, lumbar paraspinal and iliopsoas tightness, improve LE flexibility to normalize gait and squat mechanics, teach her back protection techniques when squatting and getting in/out of bed to reduce strain on lumbar spine, and improve her overall pain/radicular symptoms to promote QOL, reduce risk of reinjury, and functional mobility. Pt in agreement with POC and is motivated to participate. [ End ] Frequency and Duration: The patient will be seen 2 X wk X 4wks Short Term Goals: *INITIATE HEP TO IMPROVE LE PROPRIOCEPTION/ LUMBOPELVIC STABILITY *Pt'S LB PAIN DECR TO 2-3/10 AND LEs SXS DECR BY 75% *INCR FLEXIB IN PSOAS/HIP IR/ CALF MM TO IMPROVE EFFICIENCY OF GAIT ON LEVEL AND STAIRS *IMPROVE FUNCT SQUAT MECHANICS INCR ACTIV OF QUADS/ GLUTES *Pt DEMON APPROP BODY MECH W SIMUL WORK/ HOUSE TASKS Jail Goals: *Pt WILL IMPROVE LUMBOPELVIC/ Rt LE STRENGTH TO AT LEAST 5-/5 *Pt REPORT INCREASED ADL/ ACTIVITY PHYLLIS EVIDENT W IMPROVED OSWESTRY SCORE (AT EVAL 21/50 ) *Pt INDEP W PROGRESSIVE HEP AND SELF-SX MGMT TECH Treatment Plan: Modalities to reduce pain, spasms and effusion. Manual therapy to restore motion and function. Therapeutic exercise to improve strength and flexibility. Neuromuscular re-education for posture and balance. Therapeutic activities to return to functional activities of daily living. Electronically signed by: Shadia Mabry,PT Please sign and return to therapist. Thank you for your referral.
--- NOTE | 2024-09-28 07:48 | MHC.PT.DC ---
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 WE HAVE EMPHASIZED IMPORTANCE OF UTILIZING FUNCT SQUAT W ADLs TO REDUCE LB STRESS. SHE IS DISCHARGED PER THE DEPT ATTENDANCE POLICY , DUE TO DECR ATTENDANCE FOR SCHED PT APPTs Electronically signed by: CASEY MCADAMS,PT Please sign and return to therapist. Thank you for your referral.
== END 2024-09-28 07:49 | disposition home or self-care (01) ==
LOC: HO.PT 08:02
PROVIDERS: PCP Internal Medicine; Visit Provider Internal Medicine
DX: M54.31 Sciatica, right side (principal)
CPT/HCPCS: 97110; 97140; 97162

== ENCOUNTER 2024-07-27 07:23 | Emergency (ER) | payer OTHER, SELFPAY ==
--- NOTE | ~2024-07-27 | XR_ITS ---
EXAMINATION: XR HIP, RIGHT CLINICAL INFORMATION: fall COMPARISON: Right hip 10/09/2023. TECHNIQUE: Two views of the right hip. AP pelvis one view. FINDINGS: AP pelvis: There is normal symmetry of bilateral hip joints and SI joints. No fracture or bony abnormality involving the pelvis. There is a solitary staple in the mid pelvis likely from previous intervention. Right hip: AP and frog-leg views right hip reveal maintained right hip joint space. No bony erosive changes, acute fracture, dislocation or soft tissue abnormality. XR/XR hip RT w [id number] IMPRESSION: Unremarkable right hip exam. Unremarkable AP pelvis exam. Electronically signed by: Leonard Brown MD 07/27/2024 08:43 AM EST
--- NOTE | ~2024-07-27 | XR_ITS ---
EXAMINATION: XR KNEE, RIGHT CLINICAL INFORMATION: fall COMPARISON: Right knee 10/09/2023 TECHNIQUE: Four views of the right knee. FINDINGS: There is loss of tricompartment joint space. No bony erosive changes, acute fracture, loose bodies or joint effusion. There is a heterogeneous appearing bone marrow distal femur and proximal tibia AP and oblique view only. Similar findings were seen on the previous exam 10/09/2023 XR/XR knee RT 4V IMPRESSION: No abnormality seen involving the right knee. Heterogenesis bone marrow signal distal femur and proximal tibia. Similar to previous study. Electronically signed by: Leonard Brown MD 07/27/2024 08:48 AM EST
[2024-07-27 07:26] VITALS: BP 134/91; PULSE 85; RESP 16; TEMP 36.4; O2SAT 100; BMI 35.8
--- NOTE | 2024-07-27 08:07 | ED_ITS ---
HPI - General Adult General Chief complaint: Fall Stated complaint: Fall R knee pain Time Seen by Provider: 07/27/24 08:07 History of Present Illness ED Provider: Paolo CASEY narrative: The patient is a 39-year-old woman who slipped and fell trying to get into her car. She slipped on ice. She landed on her right knee and hip and her right hand. She did not hit her head. She had no loss of consciousness. No neck pain. The patient has pain mostly in the region of the right buttock and the back of the right leg. Some pain in the right knee in the right hand. She has pain in her right posterior thigh when she walks. No numbness or tingling in the right foot. She can use the toes and ankles normally she says. Related Data Previous Rx's ?Medication ?Instructions ?Recorded hydroxychloroquine 200 mg tablet 200 mg PO BID #60 tabs 01/26/23 sucralfate 100 mg/mL oral 10 ml PO BID #400 mL 12/30/23 suspension pantoprazole 40 mg tablet,delayed 40 mg PO DAILY 90 days #90 tabs 03/06/24 release cyclobenzaprine 10 mg tablet 10 mg PO BEDTIME PRN muscle spasm 04/26/24 14 days #14 tabs enalapril maleate 10 mg tablet 10 mg PO DAILY 90 days #90 tabs 04/26/24 tramadol 50 mg tablet 50 mg PO BID 30 days #60 tabs 04/26/24 naproxen 500 mg tablet 500 mg PO Q12H PRN pain (scale 05/01/24 score 4-6) #20 tabs oxycodone 5 mg tablet 5 mg PO Q8H PRN pain 7 days #21 05/05/24 tabs Humira(CF) Pen 40 mg/0.4 mL See Rx Instructions .Route 06/15/24 subcutaneous kit (adalimumab) .COMPLEX #2 ea cholecalciferol (vitamin D3) 125 125 mcg PO DAILY 90 days #90 caps 07/19/24 mcg (5,000 unit) capsule diclofenac sodium 1 % topical gel 0.5 g transdermal TID 30 days #100 07/19/24 grams sumatriptan succinate 50 mg tablet 50 mg PO Q2-4H PRN migraine 07/19/24 headache 30 days #9 tabs ibuprofen 400 mg tablet 400 mg PO Q6H PRN pain #14 tabs 07/27/24 Allergies Allergy/AdvReac Type Severity Reaction Status Date / Time No Known Allergies Allergy Verified 07/27/24 07:29 [No Known Allergies*] Review of Systems Review of Systems: Yes all other systems are reviewed and are negative [facility] Past Medical History Medical History De Quervain's tenosynovitis, right Low back pain Liver fibrosis Hepatomegaly Nausea Hyperparathyroidism BMI 34.0-34.9,adult BMI 35.0-35.9,adult BMI 36.0-36.9,adult H. pylori infection Hypovitaminosis D Morbid obesity Hypoparathyroidism Rheumatoid arthritis Obese Hypocalcemia Essential hypertension GERD (gastroesophageal reflux disease) Transaminitis CECI positive Seropositive rheumatoid arthritis Migraines Surgical History S/P laparoscopic sleeve gastrectomy Hx laparoscopic cholecystectomy History of appendectomy Family History Family History Father CAD (coronary artery disease) Mother Rheumatoid arthritis Lupus Hypertension Brother No problems noted. Sister No problems noted. Sister No problems noted. Sister No problems noted. Family/Other Fibromyalgia Osteoarthritis Other No family history of cancer Social History Social History Household Members: Spouse Housing: Apartment Are you a primary home care physical therapist to a significant other at home: Yes ( amputee) Do you presently have visiting nurse or other home services: No Alcohol intake: never Patient Tobacco Use Status: Never used Tobacco e-Cigarette/Vaping Use: Never Used Second Hand Smoke Exposure: No Advance Directives: No Advance Directives Information Provided: Yes Do you have a plan to hurt others: No Plan service: No Current occupational status: employed Current occupational exposures/hazards: No Cognitive needs: No Hearing needs: No Vision needs: No Physical Exam ED Vital Signs: Vital Signs - 24 hr 07/27/24 07:26 07/27/24 08:34 Temperature 97.6 F 97.6 F Pulse Rate 85 85 Respiratory Rate 16 16 Blood Pressure 134/91 H 134/91 H Pulse Oximetry 100 100 Oxygen Delivery Method Room Air Room Air BMI result Body Mass Index 35.8 HENMT Other: No signs of trauma to the head or the face. Eyes General: appearance normal, both eyes and all related structures Neck Other: No posterior midline C-spine tenderness. Good range of motion of the neck without pain. C-spine is clinically clear. Resp Effort & Inspection: normal respiratory effort Auscultation: clear to auscultation bilaterally Cardio Rate: regular rate Rhythm: regular rhythm Heart sounds: S1 normal heart sound present and S2 normal heart sound present GI Other: Abdomen is soft and nontender Skin Other: skin is dry and unremarkable Neuro Other: the patient is awake and alert with normal mental status. Cranial nerves are intact. She moves her upper extremities normally with normal strength and sensation without difficulty. She can move her left leg without difficulty. She has pain with moving her right leg but seems to have intact strength and sensation in the right leg and foot. Extrem Other: The patient seems to have tenderness in the right posterior thigh and in the buttock. I can move the right knee in the right hip through reasonably good range of motion without excessive discomfort. She walks with a limp. Medications Administered Discontinued Medications Generic Name Dose Route Start Last Admin Trade Name Jaspreetq PRN Reason Stop Dose Admin Acetaminophen 975 mg 07/27/24 08:18 07/27/24 08:27 Acetaminophen 325 Mg Tablet PO 07/27/24 08:19 975 mg ONCE ONE Administration Ketorolac Tromethamine 30 mg 07/27/24 08:17 07/27/24 08:27 Ketorolac Tromethamine 30 Mg/Ml Vial IM 07/27/24 08:18 30 mg ONCE ONE Administration Medical Decision Making Medical Decision Making [facility] Narrative: The patient is a 39-year-old female who slipped on ice while trying to get into her car. She has pain in the right posterior thigh and buttock. She is able to move the right hip and knee sufficiently that I think it is unlikely that an x-ray of the right hip or the right knee or the right femur would show any fracture. I suspect this is a muscle strain type injury. She will be treated with ibuprofen and acetaminophen. She was given a work note. She should rest and take it easy for the next couple of days. She should follow up with her PCP. She should return if worse. Discharge Plan Discharge Clinical Impression: Fall, Strain of right knee and leg, Abrasion of right hand Patient Disposition: Home, Self-Care Additional Instructions: Rest and take it easy today and tomorrow. You may use ibuprofen every 6 hours as needed for pain. You may also use [id number] acetaminophen (Tylenol). You may take 2 extra-strength tablets at a time up to 3 times per day. I believe that you have some muscle strain injuries that should improve on their own. My hope is that by Saturday you will be feeling well enough to return to work. Follow up with your regular doctor if you have any ongoing concerns. Return to the emergency room if significantly worse. Prescriptions: New ibuprofen 400 mg tablet 400 mg PO Q6H PRN (Reason: pain) Qty: 14 0RF No Action hydroxychloroquine 200 mg tablet 200 mg PO BID Qty: 60 5RF sucralfate 100 mg/mL suspension 10 ml PO BID Qty: 400 1RF pantoprazole 40 mg tablet,delayed release (DR/EC) 40 mg PO DAILY 90 Days Qty: 90 2RF enalapril maleate 10 mg tablet 10 mg PO DAILY 90 Days Qty: 90 1RF tramadol 50 mg tablet 50 mg PO BID 30 Days Qty: 60 0RF cyclobenzaprine 10 mg tablet 10 mg PO BEDTIME PRN (Reason: muscle spasm) 14 Days Qty: 14 0RF Humira(CF) Pen 40 mg/0.4 mL pen injector kit See Rx Instructions .ROUTE .COMPLEX Qty: 2 2RF Dose Instruction: Inject one pen - 40 mg/0.4 mL Subcutaneously once every 2 weeks Rx Instructions: Inject one pen - 40 mg/0.4 mL Subcutaneously once every 2 weeks sumatriptan succinate 50 mg tablet 50 mg PO Q2-4H PRN (Reason: migraine headache) 30 Days Qty: 9 6RF Rx Instructions: do not exceed 4 doses per 24 hrs diclofenac sodium 1 % gel 0.5 g transdermal TID 30 Days Qty: 100 7RF cholecalciferol (vitamin D3) 125 mcg (5,000 unit) capsule 125 mcg PO DAILY 90 Days Qty: 90 4RF naproxen 500 mg tablet 500 mg PO Q12H PRN (Reason: pain (scale score 4-6)) Qty: 20 0RF oxycodone 5 mg tablet 5 mg PO Q8H PRN (Reason: pain) 7 Days Qty: 21 0RF Rx Instructions: Partial Fill upon patient request. Referrals: Ceci Bell MD [Primary Care Provider] - (Fall) Stand Alone Forms: Work/School Release Interventions: ED Discharge Assessment Last Done: 07/27/24 08:34 Discharge Date/Time: 07/27/24 08:35 Print Language: Faroese
[2024-07-27] MEDS: Acetaminophen 325 MG TABLET 975 MG PO (08:27)
[2024-07-27] MEDS: Ketorolac Tromethamine 30 MG/ML VIAL IM (08:27)
[2024-07-27 08:34] VITALS: BP 134/91; PULSE 85; RESP 16; TEMP 36.4; O2SAT 100
== END 2024-07-27 08:35 | disposition home or self-care (01) ==
PROVIDERS: Emergency Provider Emergency Medicine; PCP Internal Medicine
DX: S60.511A Abrasion of right hand, initial encounter (principal); S83.91XA Sprain of unspecified site of right knee, initial encounter; R10.2 Pelvic and perineal pain; M25.561 Pain in right knee; W00.0XXA Fall on same level due to ice and snow, initial encounter; Y93.9 Activity, unspecified; Y92.007 Garden or yard of unspecified non-institutional (private) residence as the place of occurrence of the external cause; Y99.8 Other external cause status
CPT/HCPCS: 73502; 73564; 96372; 99283; 99284; J1885

== ENCOUNTER → 2024-07-27 07:55 | Outpatient (BNV) | payer OTHER, SELFPAY | PROVIDERS: Emergency Provider Emergency Medicine; PCP Internal Medicine; Visit Provider Radiology Diagnostic Radiology | DX: M25.551 Pain in right hip (principal); M25.561 Pain in right knee | CPT/HCPCS: 73502; 73564 ==

== ENCOUNTER 2024-09-17 09:55 | Outpatient (AMB) | payer OTHER, SELFPAY ==
--- NOTE | 2024-09-17 10:16 | MHC.OFFVISWM ---
VS Expanded 09/17/24 10:24 BP 145/76 H Blood Pressure Location Lt brachial Blood Pressure Position Sitting Pulse 82 Pulse Source Pulse Oximeter Temp 97.2 F Temperature Source Temporal Artery Scan Pulse Oximetry 100 Oxygen Delivery Method Room Air Height 5 ft 5 in Weight 205 lb 3.2 oz BMI 34.1 Body Fat % 45.1 Body Fat Mass 92.4 Fat Free Mass 112.6 Visceral Fat Rating 10 Body Water % 39.2 Body Water Mass 80.4 Muscle Mass/Score 107 Basal Metabolic Rate/Score 1,593 Intake Visit Reasons: (OV) PO LSG 08/31/2021 Demand Inspector Required: Yes Demand Inspector Name: Vishal Gallardo [id number] Information Interpreted: clinical only Allergies No Known Allergies [No Known Allergies*] Allergy (Verified 07/27/24 07:29) Medication List - Last Reconciled 09/17/24 by RAEGAN Salas adalimumab-aaty 40 mg (0.4 mL) subcut Q2W cholecalciferol (vitamin D3) 125 mcg PO DAILY 90 days cyclobenzaprine 10 mg PO BEDTIME PRN 14 days diclofenac sodium 1% 0.5 grams transdermal TID 30 days enalapril maleate 10 mg PO DAILY 90 days hydroxychloroquine 200 mg PO BID ibuprofen 400 mg PO Q6H PRN naproxen 500 mg PO Q12H PRN oxycodone 5 mg PO Q8H PRN 7 days pantoprazole 40 mg PO DAILY 90 days sucralfate 10 mL PO BID sumatriptan succinate 50 mg PO Q2-4H PRN 30 days tramadol 50 mg PO BID 30 days HPI Comments Details: This?is a 39 yo female who is s/p LSG 08/31/2021. Presents for 3 year post op visit. Weight gain of 20.2lbs since last OV in November 2021.? No complaints of nausea, emesis, abdominal pain or reflux, or constipation. Present meal plan includes: no formal plan doesn't eat all day, but at night anxiety starts to increase and she eats more- wants something sweet Exercise routine includes: no formal exercise struggles with sciatica, pinched nerve walking is comfortable [facility] Medical History De Quervain's tenosynovitis, right Low back pain Liver fibrosis Hepatomegaly Nausea Hyperparathyroidism BMI 34.0-34.9,adult BMI 35.0-35.9,adult BMI 36.0-36.9,adult H. pylori infection Hypovitaminosis D Morbid obesity Hypoparathyroidism Rheumatoid arthritis Obese Hypocalcemia Essential hypertension GERD (gastroesophageal reflux disease) Transaminitis ELEAZAR positive Seropositive rheumatoid arthritis Migraines Surgical History S/P laparoscopic sleeve gastrectomy Hx laparoscopic cholecystectomy History of appendectomy Family History Father CAD (coronary artery disease) Mother Rheumatoid arthritis Lupus Hypertension Brother No problems noted. Sister No problems noted. Sister No problems noted. Sister No problems noted. 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 home care nurse to a significant other at home: Yes ( amputee) Do you presently have visiting nurse or other home services: No Alcohol intake: never Patient Tobacco Use Status: Never used Tobacco e-Cigarette/Vaping Use: Never Used Second Hand Smoke Exposure: No service: No Current occupational status: employed Current occupational exposures/hazards: No Cognitive needs: No Hearing needs: No Vision needs: No Assessment & Plan Assessment & Plan (1) S/P laparoscopic sleeve gastrectomy: Comment: 08/31/21 Code(s): Z98.84 - Bariatric surgery status Category: Surgical (2) Obese: Code(s): E66.9 - Obesity, unspecified Category: Medical Plan Gave pt the option of [place] deirdre to use. Gave pt info card to download. Discussed the importance of eating during the day, not skipping meals- contributing to her overeating at night. Discussed the importance of exercise. Offered weekly checkins via text with weight measurements. Had labs done May 2024. RTC 3 months. Gave pt my phone # to text any questions about deirdre or otherwise.
[2024-09-17 10:24] VITALS: BP 145/76; PULSE 82; TEMP 36.2; O2SAT 100; BMI 34.1
== END 2024-09-17 10:43 | disposition home or self-care (01) ==
PROVIDERS: PCP Internal Medicine; Visit Provider Physician Assistant Surgical
DX: E66.811 Obesity, class 1 (principal); Z68.34 Body mass index [BMI] 34.0-34.9, adult; Z90.3 Acquired absence of stomach [part of]; Z98.84 Bariatric surgery status
CPT/HCPCS: 99214; G2211

== ENCOUNTER → 2024-09-17 09:55 | Outpatient (BNVA) | payer OTHER, SELFPAY | PROVIDERS: PCP Internal Medicine; Visit Provider Physician Assistant Surgical | DX: E66.9 Obesity, unspecified (principal); Z98.84 Bariatric surgery status; Z68.34 Body mass index [BMI] 34.0-34.9, adult | CPT/HCPCS: 99212 ==

== ENCOUNTER 2024-09-21 15:08 | Outpatient (AMB) | payer OTHER, SELFPAY ==
--- NOTE | 2024-09-21 15:15 | A.OFFPC_ITS ---
Vital Signs 09/21/24 15:18 Height 5 ft 5 in Weight 209 lb BMI 34.8 BP 146/102 H Blood Pressure Location Lt brachial Position Sitting Intake Visit Reasons: Cardio referral request/ Tachycardia Tie Presser Required: No Accompanied by: Self / Same As Patient Allergies No Known Allergies [No Known Allergies*] Allergy (Verified 09/21/24 15:30) Medication List - Last Reconciled 09/21/24 by Ceci Orozco MD adalimumab-aaty 40 mg (0.4 mL) subcut Q2W cholecalciferol (vitamin D3) 125 mcg PO DAILY 90 days cyclobenzaprine 10 mg PO BEDTIME PRN 14 days diclofenac sodium 1% 0.5 grams transdermal TID 30 days enalapril maleate 10 mg PO DAILY 90 days hydroxychloroquine 200 mg PO BID ibuprofen 400 mg PO Q6H PRN naproxen 500 mg PO Q12H PRN oxycodone 5 mg PO Q8H PRN 7 days pantoprazole 40 mg PO DAILY 90 days sucralfate 10 mL PO BID sumatriptan succinate 50 mg PO Q2-4H PRN 30 days tramadol 50 mg PO BID 30 days Tobacco use date assessed: 09/21/24 Dental Screening Dental Screen Date: 09/21/24 Did you have a dental visit in the last 12 months?: No Did you have a dental problem in the last 6 months where you did not have access to dental care?: No Was dental information given to patient?: Patient has dentist HPI HPI Comments History of Present Illness Details The patient is a 39-year-old female presenting with episodes of heart palpitations. She has experienced these episodes on four occasions recently, primarily occurring upon rising. The episodes are characterized by a rapid heartbeat and a sensation of the heart in the throat. Although no definite triggers have been identified, there appears to be an association with her work activities. There is no significant past cardiac history reported. She is diagnosed with essential hypertension, currently not well-controlled as indicated by recent elevated blood pressure readings. The patient is planning a vacation and will return for further evaluation mid-month. Additionally, she experiences migraines managed with sumatriptan and has acid reflux treated with pantoprazole and Carafate. She is also on hydroxychloroquine 200 mg twice daily for her rheumatoid arthritis, with ibuprofen and naproxen as needed for pain management. [facility] Medical History (Updated 09/21/24 @ 15:38 by Ceci Orozco MD) De Quervain's tenosynovitis, right Low back pain Liver fibrosis Hepatomegaly Nausea Hyperparathyroidism BMI 34.0-34.9,adult BMI 35.0-35.9,adult BMI 36.0-36.9,adult H. pylori infection Hypovitaminosis D Morbid obesity Hypoparathyroidism Rheumatoid arthritis Obese Hypocalcemia Essential hypertension GERD (gastroesophageal reflux disease) Transaminitis CECI positive Seropositive rheumatoid arthritis Migraines Surgical History S/P laparoscopic sleeve gastrectomy Hx laparoscopic cholecystectomy History of appendectomy Family History Father CAD (coronary artery disease) Mother Rheumatoid arthritis Lupus Hypertension Brother No problems noted. Sister No problems noted. Sister No problems noted. Sister No problems noted. 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 home care music therapist to a significant other at home: Yes ( amputee) Do you presently have visiting nurse or other home services: No Alcohol intake: never Patient Tobacco Use Status: Never used Tobacco e-Cigarette/Vaping Use: Never Used Second Hand Smoke Exposure: No service: No Current occupational status: employed Current occupational exposures/hazards: No Cognitive needs: No Hearing needs: No Vision needs: No Questionnaire PHQ-9 Over the last 2 weeks, how often have you been bothered by any of the following problems? 1. Little interest or pleasure in doing things: not at all 2. Feeling down, depressed, or hopeless: not at all 3. Trouble falling or staying asleep, or sleeping too much: not at all 4. Feeling tired or having little energy: not at all 5. Poor appetite or overeating: not at all 6. Feeling bad about yourself - or that you are a failure or have let yourself or your family down: not at all 7. Trouble concentrating on things, such as reading the newspaper or watching television: not at all 8. Moving or speaking so slowly that other people could have noticed. Or the opposite - being so fidgety or restless that you have been moving around a lot more than usual: not at all 9. Thoughts that you would be better off or of hurting yourself in some way: not at all Total score: 0 Depression Screening Interpretation: Negative Depression Screening Done: Yes 37994 - PHQ-9 Billing: Yes Source: Developed by Drs. Carlos Alfredo, Leela Singh, Ramiro Cooper and colleagues, with an educational brittney from [employer]. Thrive Questionnaire Date Thrive assessed: 09/21/24 I am a: Patient What is your living situation today?: I have a steady place to live Within the past 12 months, did the food you bought not last and you didn't have the money to get more?: Never true Within the past 12 months, did you worry whether your food would run out before you got money to buy more?: Never true Do you have trouble paying for medicines?: No Do you have trouble getting transportation to medical appointments?: No Do you have trouble paying your heating and electricity bill?: No Do you have trouble taking care of your child, family member or friend?: No Do you have trouble with day-to-day activities such as bathing, preparing meals, shopping, managing finances, etc.?: No Are you currently unemployed and looking for a job?: No Are you interested in more education?: No Please select the resources that you would like help with: None Currently or been in a relationship where the following occur: No concerns reported THRIVE Score: 0 AUDIT C Alcohol Use Questionnaire (AUDIT-C) 1. How often do you have a drink containing alcohol?: Never Total Score: 0 Score Reviewed/Action Taken: No KEDAR-7 AMB Questionnaire KEDAR-7 Date KEDAR - 7 assessed: 09/21/24 Feeling nervous, anxious, or on edge: 0 = Not at all Not being able to stop or control worryin = Not at all Worrying too much about different things: 0 = Not at all Trouble relaxin = Not at all Being so restless that it is hard to sit still: 0 = Not at all Becoming easily annoyed or irritable: 0 = Not at all Feeling afraid as if something awful might happen: 0 = Not at all Total KEDAR-7 score (0-4 normal; 5-9 mild; 10-14 moderate; 15-21 severe): 0 Source: Developed by Drs. Carlos Alfredo, Leela Singh, Ramiro Cooper and colleagues, with an educational brittney from [employer]. KEDAR-7 Assessment Billing KEDAR-7 Assessment Tool: KEDAR-7 Assessment 35663 Review of Systems Const All systems reviewed & are unremarkable except as noted in HPI and below Card Denies chest pain at rest, Denies chest pain with activity, Denies edema, Denies irregular heart rhythm, Denies claudication, Denies dyspnea, Denies dyspnea on exertion, Denies orthopnea, Denies paroxysmal nocturnal dyspnea and Denies slow heart rate Resp Denies cough, Denies dyspnea and Denies dyspnea on exertion GI Denies abdominal pain, Denies change in bowel habits, Denies excessive flatus, Denies nausea and Denies vomiting Neuro Denies lack of coordination Physical exam (Primary Care) Vital Signs: Last Vital Signs BP 146/102 H 09/21/24 15:18 BMI result Body Mass Index 34.8 Tobacco/Smoking Status: Tobacco use Status Tobacco use date assessed 09/21/24 09/21/24 15:22 Patient Tobacco Use Status Never used Tobacco 09/21/24 15:21 e-Cigarette/Vaping Use Never Used 09/21/24 15:21 PHQ-9: PHQ-9 Score PHQ-9: Total score 0 09/21/24 15:31 Depression Screening Interpretation: Negative Thrive Assessment: Date of Thrive Assessment Date Thrive assessed 09/21/24 09/21/24 15:21 Currently or been in a relationship where the following occur: No concerns reported Resp Effort & Inspection: normal respiratory effort Auscultation: clear to auscultation bilaterally Cardio Jugular venous distension: no JVD Rate: regular rate Rhythm: regular rhythm Heart sounds: S1 normal heart sound present and S2 normal heart sound present Extrem General: Yes full ROM Coding Level of Care Code Est Pt Level 4 (12269) Complex EM visit Add On G2211 Diagnoses Tachycardia R00.0 Seropositive rheumatoid arthritis M05.9 Migraine without aura and without status migrainosus, not intractable G43.009 Migraine type: without aura Status migrainosus presence: without status migrainosus Intractability: not intractable Essential hypertension I10 Additional Codes KEDAR-7 Assessment Billing - KEDAR-7 Assessment Tool: KEDAR-7 Assessment 78690 ([id number]) PHQ-9 - 74397 - PHQ-9 Billing: Yes ([id number]) Time Spent (min) 21 Assessment & Plan Assessment & Plan (1) Tachycardia: Code(s): R00.0 - Tachycardia, unspecified Category: Medical (2) Seropositive rheumatoid arthritis: Comment: Onset 2019 -ve RF +CCP HCQ started. Eye exam OK 03/2020, 07/2022. Cimzia added 12/23/[address] of Cimzia due to insurance preference 04/[address] Enbrel due to ineffectiveness Code(s): M05.9 - Rheumatoid arthritis with rheumatoid factor, unspecified Category: Medical (3) Migraines: Code(s): G43.909 - Migraine, unspecified, not intractable, without status migrainosus Category: Medical Qualifiers: Migraine type: without aura Status migrainosus presence: without status migrainosus Intractability: not intractable Qualified Code(s): G43.009 - Migraine without aura, not intractable, without status migrainosus (4) Essential hypertension: Code(s): I10 - Essential (primary) hypertension Category: Medical Plan To address the episodes of palpitations, I proposed considering an electrocardiogram and possible Holter monitoring for continuous cardiac assessment. Given her uncontrolled hypertension, we discussed the necessity of regular monitoring of her blood pressure and follow-up after her return from vacation. There was a suggestion to consult with a mixing tank operator for further evaluation concerning her palpitations and hypertension management. For her migraines and acid reflux, maintaining her current medication regimen of sumatriptan, pantoprazole, and Carafate was advised. Patient was informed and verbally consented to the use of an ambient scribe for clinic note documentation during this visit. During the visit, we discussed the symptoms of heart palpitations she has been experiencing and the potential need for further cardiac evaluation through non- invasive means such as an ECG and Holter monitor. She was informed of the importance of monitoring her hypertension closely and the implications of elevated blood pressure. We discussed the continuation of her migraine and reflux treatment plans and she seemed agreeable to the management strategy. Follow-up was proposed following her return from vacation to reassess her condition and determine if further action is warranted. Orders: Orders ECG 12 lead EKG Today R00.0 - Tachycardia, unspecified Lipid Panel Today E78.5 - Hyperlipidemia, unspecified Comprehensive [place]. Panel Fast Today R00.0 - Tachycardia, unspecified Thyroid Stimulating Hormone Today R00.0 - Tachycardia, unspecified ECG holter monitor 24 hour Today R00.0 - Tachycardia, unspecified Referrals Cardiology Referral R00.0 - Tachycardia, unspecified Patient Instructions: - Monitor blood pressure regularly, especially after returning from vacation. - Continue taking sumatriptan for migraine as needed. - Maintain prescribed use of pantoprazole and Carafate for acid reflux. - Schedule follow-up visit after returning from vacation. - Report any worsening of symptoms or new symptoms immediately.
[2024-09-21 15:18] VITALS: BP 146/102; BMI 34.8
== END 2024-09-21 15:40 | disposition home or self-care (01) ==
LOC: HO.HMCH 15:09
PROVIDERS: PCP Internal Medicine; Visit Provider Internal Medicine
DX: R00.0 Tachycardia, unspecified (principal); M05.9 Rheumatoid arthritis with rheumatoid factor, unspecified; G43.009 Migraine without aura, not intractable, without status migrainosus; I10 Essential (primary) hypertension

== ENCOUNTER → 2024-09-21 15:08 | Outpatient (BNVA) | payer OTHER, SELFPAY | PROVIDERS: PCP Internal Medicine; Visit Provider Internal Medicine | DX: R00.2 Palpitations (principal); R00.0 Tachycardia, unspecified; K21.9 Gastro-esophageal reflux disease without esophagitis; M05.9 Rheumatoid arthritis with rheumatoid factor, unspecified; G43.009 Migraine without aura, not intractable, without status migrainosus; I10 Essential (primary) hypertension; E78.5 Hyperlipidemia, unspecified | CPT/HCPCS: 96127; 99212 ==

== ENCOUNTER → 2024-10-07 09:06 | Outpatient (REF) | payer OTHER, SELFPAY ==
--- NOTE | 2024-10-07 09:09 | ECG_ITS ---
Test Reason : tachycardia Blood Pressure : */* mmHG Vent. Rate : 72 BPM Atrial Rate : 72 BPM P-R Int : 128 ms QRS Dur : 88 ms QT Int : 374 ms P-R-T Axes : 8 51 0 degrees QTcB Int : 409 ms Normal sinus rhythm Normal ECG When compared with ECG of 12-May-2021 12:07, No significant change was found Referred By: Ceci Orozco Electronically Signed By: DHRUV CAMARENA MD
== END ==
LOC: HO.CARD 09:06
PROVIDERS: PCP Internal Medicine; Visit Provider Internal Medicine
DX: R00.0 Tachycardia, unspecified (principal)
CPT/HCPCS: 93005; 93225

== ENCOUNTER → 2024-10-07 09:09 | Outpatient (BNV) | payer OTHER, SELFPAY | PROVIDERS: PCP Internal Medicine; Visit Provider Internal Medicine Cardiovascular Disease | DX: R00.0 Tachycardia, unspecified (principal) | CPT/HCPCS: 93010 ==

== ENCOUNTER 2024-10-19 13:47 | Outpatient (AMB) | payer OTHER, SELFPAY ==
--- NOTE | 2024-10-19 14:02 | MHC.OFFVIS ---
Vital Signs 10/19/24 14:04 Height 5 ft 5 in Weight 210 lb 8.663 oz BMI 35.0 BP 130/70 Blood Pressure Location Lt brachial Position Sitting Pulse 75 Pulse Source Pulse Oximeter Pulse Oximetry (%) 99 Oxygen Delivery Method Room Air Intake Visit Reasons: RA Intake Note: Patient presents today for follow up on RA, lab review. She was last seen in the office on 06/11/[address] Campbell. Allergies No Known Allergies [No Known Allergies*] Allergy (Verified 10/19/24 14:04) Medication List - Last Reconciled 10/19/24 by Lyudmila Cummins MD adalimumab-aaty 40 mg (0.4 mL) subcut Q2W cholecalciferol (vitamin D3) 125 mcg PO DAILY 90 days cyclobenzaprine 10 mg PO BEDTIME PRN 14 days diclofenac sodium 1% 0.5 grams transdermal TID 30 days enalapril maleate 10 mg PO DAILY 90 days hydroxychloroquine 200 mg PO BID ibuprofen 400 mg PO Q6H PRN naproxen 500 mg PO Q12H PRN pantoprazole 40 mg PO DAILY 90 days sucralfate 10 mL PO BID sumatriptan succinate 50 mg PO Q2-4H PRN 30 days tramadol 50 mg PO BID 30 days HPI Comments Details: Patient is a 39-year-old female with morbid obesity status post laparoscopic sleeve gastrectomy, migraines, GERD, hypertension, and seropositive rheumatoid arthritis here today for follow up Interval History: Patient last seen 06/11/[address] Campbell. At that time she was following up for her seropositive rheumatoid arthritis. She was on hydroxychloroquine 200 mg twice a day and Humira 40 mg every other week. She was complaining of sciatica symptoms for about 2-3 months as well as right wrist pain for her known de Quervain's tenosynovitis. With respect to her rheumatoid arthritis there was no active synovitis and no changes were made to her medication. Today, Patient reports worsening pain and stiffness Does not feel the Humira is working anymore There is no correlation between Humira dosage and worsening symptoms Rheumatologic History: Onset 2019 -ve RF +CCP HCQ started. Eye exam OK 03/2020, 07/2022. Cimzia added 12/23/[address] of Cimzia due to insurance preference 04/[address] Enbrel due to ineffectiveness Initial history: Patient reports joint pain everywhere that began approx 1 year ago. States that pain is diffuse but is worse in her hands, shoulders and knees. Has pain daily that is worse in the morning. Has diffuse morning stiffness that can last up to 30 minutes, states that her hands will cramp in the morning. Has numbness in her fingertips occasionally that is worse in the morning. Pain is present with rest and activity. Reports some swelling in her hands. Using Flexeril and Tramadol for pain, states that the Flexeril helps her back pain but Tramadol causes nausea. Has tried Tylenol and Ibuprofen but states that they do not help. + oral ulcers Pt denies Raynauds, photosensitivity, nasal ulcers, Sicca symptoms, fevers, alopecia. Mother has RA and SLE. Sister with Fibromyalgia Current Rheumatology Medication(s): Humira 40 mg SC every other week Plaquenil 200 mg b.i.d. [facility] Medical History De Quervain's tenosynovitis, right Low back pain Liver fibrosis Hepatomegaly Nausea Hyperparathyroidism BMI 34.0-34.9,adult BMI 35.0-35.9,adult BMI 36.0-36.9,adult H. pylori infection Hypovitaminosis D Morbid obesity Hypoparathyroidism Rheumatoid arthritis Obese Hypocalcemia Essential hypertension GERD (gastroesophageal reflux disease) Transaminitis ELEAZAR positive Seropositive rheumatoid arthritis Migraines Surgical History S/P laparoscopic sleeve gastrectomy Hx laparoscopic cholecystectomy History of appendectomy Family History Father CAD (coronary artery disease) Mother Rheumatoid arthritis Lupus Hypertension Brother No problems noted. Sister No problems noted. Sister No problems noted. Sister No problems noted. 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 acute care surgeon to a significant other at home: Yes ( amputee) Do you presently have visiting nurse or other home services: No Alcohol intake: never Patient Tobacco Use Status: Never used Tobacco e-Cigarette/Vaping Use: Never Used Second Hand Smoke Exposure: No service: No Current occupational status: employed Current occupational exposures/hazards: No Cognitive needs: No Hearing needs: No Vision needs: No Review of Systems Const Details: Review of Systems Constitutional: Denies fever, chills, weight loss ENT: Denies vision changes, eye pain or eye redness, dental caries, dry mouth GI: Denies nausea, vomiting, diarrhea, abdominal pain, change in BM Pulm: Denies SOB, ALMANZAR, hemoptysis, wheezing Cards: Denies chest pain, palpitations Skin: Denies Raynaud's, rash, nail changes, photosensitivity, EXHAUST AND MUFFLER REPAIRER: Denies headaches, weakness, paresthesias, recurrent falls MSK: as per HPI All other systems reviewed and are unremarkable except noted above Physical Exam Vital Signs: Last Vital Signs Pulse 75 10/19/24 14:04 BP 130/70 10/19/24 14:04 Pulse Ox 99 10/19/24 14:04 Oxygen Delivery Method Room Air 10/19/24 14:04 BMI result Body Mass Index 35.0 Vital signs reviewed Physical Examination CONSTITUITIONAL Patient alert and cooperative. Well appearing and in no apparent painful distress HEENT Conjunctiva and sclera clear. ?Pupils equal round and reactive to light. ?No lymphadenopathy. ? CHEST/RESPIRATORY SYSTEM Normal respiratory effort and able to speak in complete sentences. ?Clear to auscultation bilaterally. ?No crackles, rales, rhonchi, wheezes heard. CARDIAC SYSTEM Regular rate and rhythm. ?S1 and S2 heard no murmurs. ?Radial pulses intact bilaterally MSK Hands: ?Able to make a fist. No synovitis noted to the MCPs, PIPs or DIPs. ?No tenderness to palpation of these joints. No deformities noted. ? Wrists: ?Full range of motion at the wrists without pain. ?No tenderness to palpation or synovitis noted to the wrists. Elbows: Full range of motion without pain. No tenderness, weakness, swelling, increased warmth or erythema. Shoulders: Full range of active range of motion without pain. No tenderness, weakness, swelling, increased warmth or erythema. Hips: Full range of motion without pain. Hip bursa: No tenderness to palpation Knees: ?Full range of motion. ?Crepitations felt bilaterally. TTP of the joint line Ankles: Full range of motion. ?No tenderness, swelling, increased warmth or erythema.? Feet: ?Positive squeeze test bilaterally. TTP of the 1st and 5th MTP joints bilaterally Tender points:?No tenderness to palpation of the bilateral trapezius, supraspinatus, greater trochanters, anterior costochondral junctions, bilateral gluteal areas, bilateral suboccipital muscle insertions SKIN Skin intact without rashes. Results Reviewed Results Reviewed: Laboratory Tests 06/10/24 09:01 WBC 6.4 RBC 4.54 Hgb 13.0 Hct 40.0 Plt Count 285 ESR 12 Sodium 139 Potassium 3.8 Chloride 107 Carbon Dioxide 28 BUN 16 Creatinine 0.66 AST 19 ALT 19 Alkaline Phosphatase 44 C-Reactive Protein 0.11 25-OH Vitamin D Total 12.1 L Immunology Labs 11/25/19 11/18/20 10:32 10:02 Rheumatoid Factor < 15.0 Cycl Citrul Peptide IgG 42 H Anti-Smooth Muscle Ab 23 H Anti-Cardiolipin IgM Ab 15 H Infectious serologies 04/18/21 09:11 Hepatitis A IgM Ab Nonreactive Hep Bs Antigen Negative Hep Bs Antibody REACTIVE Hep B Core Total Ab Nonreactive Hepatitis C Ab (EIA) Reactive H TB Test (T-Spot) Com Negative Assessment & Plan Assessment & Plan (1) Seropositive rheumatoid arthritis: Comment: Onset 2018 -ve RF +CCP HCQ started. Eye exam OK 03/2020, 07/2022. Cimzia added 12/23/[address] of Cimzia due to insurance preference 04/[address] Enbrel due to ineffectiveness Code(s): M05.9 - Rheumatoid arthritis with rheumatoid factor, unspecified Category: Medical Plan: #Seropositive RA Patient is a 39-year-old female with seropositive rheumatoid arthritis here today for follow up. Currently on adalimumab-aaty every other week and hydroxychloroquine twice a day. Has been noticing more joint pain including hands and knees as well as feet. Exam she does not have any active synovitis or tenderness to palpation of the hands or wrists. She does have some tenderness to the knees and MTPs. We will increase the frequency of adalimumab-aaty to see if this will help. We will also check x-rays of the knees and feet. Plan - Adalimumab-aaty 40mg SC every week - Plaquenil 200mg bid - XR bilateral knees and feet - Labs today: CBC, CMP, ESR, CRP, hepatitis panel, T spot, HBV/HCV quantitative, adalimumab antibodies - RTC 4 months - Labs before visit: CBC, CMP, ESR, CRP (2) Encounter for monitoring of hydroxychloroquine therapy: Code(s): Z51.81 - Encounter for therapeutic drug level monitoring; Z79.899 - Other adjunct faculty for medical terminology (current) drug therapy Category: Medical Plan: #Long-term Use of Hydroxychloroquine Discussed with patient the risks and benefits of hydroxychloroquine in managing the rheumatic condition Benefits include: - Reduced pain, reduce mortality, maintenance of remission and reduction of flares Risks include: - GI upset, skin hyperpigmentation, retinal toxicity (especially after more than 5 years of use), myopathy Advised yearly ophthalmology visits Last ophthalmology visit: [ ] (3) Encounter for monitoring of adalimumab therapy: Code(s): Z51.81 - Encounter for therapeutic drug level monitoring; Z79.620 - termite helper (current) use of immunosuppressive biologic Plan: #Long-term Use of TNF Inhibitors: Adalimumab Discussed with the patient the benefits and risks of TNF inhibitors for the management of the rheumatic condition Benefits include reduce pain, maintenance of remission and reduction of flares as well as ?progression of the disease Risks include injection sites/infusion reactions, serious infections (such as bacterial infections, opportunistic infections), malignancy, delaminating syndromes, autoimmune phenomena, CHF exacerbations, palmar plantar psoriasis and cytopenias Recommended rotating injection sites, and holding medication during and for up to 1 week after resolution of a febrile illness or open skin wound Plan I spent 32 minutes reviewing the record and labs, taking a history, examining the patient, discussing the treatment plan, ordering diagnostic work up and documenting in the medical record Orders: Orders Comprehensive Met. Panel Today M05.9 - Rheumatoid arthritis with rheumatoid factor, unspecified Erythrocyte Sedimentation Rate Today M05.9 - Rheumatoid arthritis with rheumatoid factor, unspecified Hepatitis B Viral DNA Qn Today M05.9 - Rheumatoid arthritis with rheumatoid factor, unspecified Complete Blood Count Auto Diff 4 Months E55.9 - Vitamin D deficiency, unspecified, M05.9 - Rheumatoid arthritis with rheumatoid factor, unspecified Comprehensive Met. Panel 4 Months E55.9 - Vitamin D deficiency, unspecified, M05.9 - Rheumatoid arthritis with rheumatoid factor, unspecified Vitamin D 25-OH (D2 and D3) 4 Months E55.9 - Vitamin D deficiency, unspecified, M05.9 - Rheumatoid arthritis with rheumatoid factor, unspecified Erythrocyte Sedimentation Rate 4 Months E55.9 - Vitamin D deficiency, unspecified, M05.9 - Rheumatoid arthritis with rheumatoid factor, unspecified XR foot RT min 3V Today M05.9 - Rheumatoid arthritis with rheumatoid factor, unspecified XR foot LT min 3V Today M05.9 - Rheumatoid arthritis with rheumatoid factor, unspecified Adalimumab+Ab Today M05.9 - Rheumatoid arthritis with rheumatoid factor, unspecified Complete Blood Count Auto Diff Today M05.9 - Rheumatoid arthritis with rheumatoid factor, unspecified C Reactive Protein Today M05.9 - Rheumatoid arthritis with rheumatoid factor, unspecified Hepatitis A,B,C Profile Today M05.9 - Rheumatoid arthritis with rheumatoid factor, unspecified Hepatitis C Viral Load Today M05.9 - Rheumatoid arthritis with rheumatoid factor, unspecified T Spot TB Today M05.9 - Rheumatoid arthritis with rheumatoid factor, unspecified Vitamin D 25-OH (D2 and D3) Today E55.9 - Vitamin D deficiency, unspecified C Reactive Protein 4 Months E55.9 - Vitamin D deficiency, unspecified, M05.9 - Rheumatoid arthritis with rheumatoid factor, unspecified XR knee RT 3V Today M25.561 - Pain in right knee, M25.562 - Pain in left knee XR knee LT 3V Today M25.561 - Pain in right knee, M25.562 - Pain in left knee Coding Level of Care Code Est Pt Level 4 (20263) Complex EM visit Add On G2211 Diagnoses Seropositive rheumatoid arthritis M05.9 Encounter for monitoring of hydroxychloroquine therapy Z51.81; Z79.899 Encounter for monitoring of adalimumab therapy Z51.81; Z79.620
[2024-10-19 14:04] VITALS: BP 130/70; PULSE 75; O2SAT 99; BMI 35.0
== END 2024-10-19 14:37 | disposition home or self-care (01) ==
LOC: HO.RHE 13:47
PROVIDERS: PCP Internal Medicine; Visit Provider Student in an Organized Health Care Education/Training Program
DX: M05.79 Rheumatoid arthritis with rheumatoid factor of multiple sites without organ or systems involvement (principal); Z51.81 Encounter for therapeutic drug level monitoring; Z79.899 Other long term (current) drug therapy; Z79.620 Long term (current) use of immunosuppressive biologic
CPT/HCPCS: 99214; G2211

== ENCOUNTER → 2024-10-19 13:47 | Outpatient (BNVA) | payer OTHER, SELFPAY | PROVIDERS: PCP Internal Medicine; Visit Provider Student in an Organized Health Care Education/Training Program | DX: M06.9 Rheumatoid arthritis, unspecified (principal); E66.01 Morbid (severe) obesity due to excess calories; E55.9 Vitamin D deficiency, unspecified; M25.561 Pain in right knee; M25.562 Pain in left knee; Z51.81 Encounter for therapeutic drug level monitoring; Z68.35 Body mass index [BMI] 35.0-35.9, adult; Z79.899 Other long term (current) drug therapy; Z79.620 Long term (current) use of immunosuppressive biologic; Z98.84 Bariatric surgery status | CPT/HCPCS: 99212 ==

== ENCOUNTER 2024-12-03 10:21 | Outpatient (AMB) | payer OTHER, SELFPAY ==
--- NOTE | 2024-12-03 10:02 | A.OFFVIS_ITS ---
VS Expanded 12/03/24 10:06 Height 5 ft 5 in Weight 200 lb BMI 33.3 Intake Visit Reasons: TELEPHONE PO LSG 08/31/21 Manager Documentation Required: Yes Manager Documentation Name: Yajaira Blair Information Interpreted: clinical only Allergies No Known Allergies [No Known Allergies*] Allergy (Verified 10/19/24 14:04) Medication List - Last Reconciled 12/03/24 by RAEGAN Salas adalimumab (Humira(CF) Pen) 40 mg (0.4 mL) subcut QWEEK cholecalciferol (vitamin D3) 125 mcg PO DAILY 90 days cyclobenzaprine 10 mg PO BEDTIME PRN 14 days diclofenac sodium 1% 0.5 grams transdermal TID 30 days enalapril maleate 10 mg PO DAILY 90 days hydroxychloroquine 200 mg PO BID ibuprofen 400 mg PO Q6H PRN naproxen 500 mg PO Q12H PRN pantoprazole 40 mg PO DAILY 90 days sucralfate 10 mL PO BID sumatriptan succinate 50 mg PO Q2-4H PRN 30 days tramadol 50 mg PO BID 30 days HPI Comments Details: This?is a?39?yo F who is s/p LSG 08/31/2021. Presents for 3 year 3 mo post op visit. Weight at last visit on 09/17/2024 was 205 pounds; weight today is 200 pounds, representing a 5.2 pound weight loss with a BMI today of 33.? No complaints of nausea, emesis, abdominal pain or reflux, or constipation. She recently was seen for tachycardia by PCP, had a Holter monitor and pt reports everything was fine. Present meal plan includes: at last visit gave [employer] download info and pt reports she is using using protein bars, shakes; one meal per day does not feel hungry, likes the plan interested in GLP1 medications Exercise routine includes: struggles with sciatica, pinched nerve walking is comfortable [facility] Medical History De Quervain's tenosynovitis, right Low back pain Liver fibrosis Hepatomegaly Nausea Hyperparathyroidism BMI 34.0-34.9,adult BMI 35.0-35.9,adult BMI 36.0-36.9,adult H. pylori infection Hypovitaminosis D Morbid obesity Hypoparathyroidism Rheumatoid arthritis Obese Hypocalcemia Essential hypertension GERD (gastroesophageal reflux disease) Transaminitis CECI positive Seropositive rheumatoid arthritis Migraines Surgical History S/P laparoscopic sleeve gastrectomy Hx laparoscopic cholecystectomy History of appendectomy Family History Father CAD (coronary artery disease) Mother Rheumatoid arthritis Lupus Hypertension Brother No problems noted. Sister No problems noted. Sister No problems noted. Sister No problems noted. 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 resident care supervisor to a significant other at home: Yes ( amputee) Do you presently have visiting nurse or other home services: No Alcohol intake: never Patient Tobacco Use Status: Never used Tobacco e-Cigarette/Vaping Use: Never Used Second Hand Smoke Exposure: No service: No Current occupational status: employed Current occupational exposures/hazards: No Cognitive needs: No Hearing needs: No Vision needs: No Telehealth Telehealth Telehealth Platform: Telephone Location of provider rendering services: other Location of patient: address on file Patient Identification confirmed using: Name, : Yes Telehealth method: voice only Patient verbally consented to treatment: Yes Patient verbally consented to billing insurance company: Yes Patient informed of any privacy concerns related to visit: Yes Minutes spent on Phone/Video with Pt.: 17 Assessment & Plan Assessment & Plan (1) S/P laparoscopic sleeve gastrectomy: Comment: 08/31/21 Code(s): Z98.84 - Bariatric surgery status Category: Surgical (2) Obese: Code(s): E66.9 - Obesity, unspecified Category: Medical Plan Continue meal plan from [employer] deirdre; exercise is limited due to pain but pt has been trying to walk. I would not consider phentermine for this pt; I reviewed multiple blood pressure readings over the past year and she has many readings > 140/90 despite treatment with enalapril. Pt is interested in starting GLP1. Reviewed contraindications, discussed dosing. Discussed need for adequate protein intake while on GLP1s as well as frequent communication with our office. Pt will check in with me weekly and is aware that subsequent Rx will be dependent on frequent communication. Also discussed daily monitoring of HR as pt was previously worked up for tachycardia. RTC 3 mo. Medications: New Zepbound (tirzepatide (weight loss)) for 4 weeks 2.5 mg (0.5 mL) subcut QWEEK 2 mL 0RF NS
[2024-12-03 10:06] VITALS: BMI 33.3
== END 2024-12-03 10:31 | disposition home or self-care (01) ==
LOC: HO.HBS 10:21
PROVIDERS: PCP Internal Medicine; Visit Provider Physician Assistant Surgical
DX: E66.9 Obesity, unspecified (principal); Z98.84 Bariatric surgery status
CPT/HCPCS: 99214; G2211

== ENCOUNTER → 2024-12-03 10:21 | Outpatient (BNVA) | payer OTHER, SELFPAY | PROVIDERS: PCP Internal Medicine; Visit Provider Physician Assistant Surgical ==

== ENCOUNTER → 2024-12-08 11:20 | Outpatient (BNVA) | payer OTHER, SELFPAY | PROVIDERS: PCP Internal Medicine; Visit Provider Physician Assistant Surgical ==

== ENCOUNTER 2024-12-22 09:15 | Outpatient (AMB) | payer OTHER, SELFPAY ==
--- NOTE | 2024-12-22 09:21 | MHC.OFFVIS ---
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 Independent Insurance Adjuster Required: Yes Independent Insurance Adjuster Language: Tax Accountant Name: [id number] Accompanied by: Self / Same As Patient Allergies No Known Allergies (No Known Allergies*) Allergy (Verified 10/19/24 14:04) Medication List - Last Reconciled 12/22/24 by Ralph Sampson MD adalimumab (Humira(CF) Pen) 40 mg (0.4 mL) subcut QWEEK cholecalciferol (vitamin D3) 125 mcg PO DAILY 90 days cyclobenzaprine 10 mg PO BEDTIME PRN 14 days diclofenac sodium 1% 0.5 grams transdermal TID 30 days enalapril maleate 10 mg PO DAILY 90 days hydroxychloroquine 200 mg PO BID ibuprofen 400 mg PO Q6H PRN naproxen 500 mg PO Q12H PRN pantoprazole 40 mg PO DAILY 90 days sucralfate 10 mL PO BID sumatriptan succinate 50 mg PO Q2-4H PRN 30 days tramadol 50 mg PO BID 30 days Held on 05/05/24. Instructions: Doctor's Order Zepbound (tirzepatide (weight loss)) 2.5 mg (0.5 mL) subcut QWEEK NS HPI Comments Details: The patient is a 39-year-old female presenting with tachycardia. She reports experiencing episodes of rapid heart rate, which occur spontaneously and have been happening for approximately six months. These episodes were initially occurring weekly but have become less frequent. The patient describes that during these episodes, her heart beats very fast, but she is able to calm herself by sitting down and breathing deeply. She has previously worn a Holter monitor for 24 hours, but no palpitations were recorded during that period. The patient also has a history of rheumatoid arthritis, which was confirmed during the visit. She denies any breathing problems or sleep apnea. The patient has undergone significant weight loss, having lost over 100 pounds from a previous weight of 300 pounds. No documented history of any coronary disease or myocardial infarction or cardiomyopathy. [facility] Medical History De Quervain's tenosynovitis, right Low back pain Liver fibrosis Hepatomegaly Nausea Hyperparathyroidism BMI 34.0-34.9,adult BMI 35.0-35.9,adult BMI 36.0-36.9,adult H. pylori infection Hypovitaminosis D Morbid obesity Hypoparathyroidism Rheumatoid arthritis Obese Hypocalcemia Essential hypertension GERD (gastroesophageal reflux disease) Transaminitis ELEAZAR positive Seropositive rheumatoid arthritis Migraines Surgical History S/P laparoscopic sleeve gastrectomy Hx laparoscopic cholecystectomy History of appendectomy Family History Father CAD (coronary artery disease) Mother Rheumatoid arthritis Lupus Hypertension Brother No problems noted. Sister No problems noted. Sister No problems noted. Sister No problems noted. 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 health care assistant to a significant other at home: Yes ( amputee) Do you presently have visiting nurse or other home services: No Alcohol intake: never Patient Tobacco Use Status: Never used Tobacco e-Cigarette/Vaping Use: Never Used Second Hand Smoke Exposure: No service: No Current occupational status: employed Current occupational exposures/hazards: No Cognitive needs: No Hearing needs: No Vision needs: No Review of Systems Const Denies chills, Denies fatigue, Denies fever(s), Denies frequent falls, Denies weakness, Denies weight gain and Denies weight loss ENT Denies dizziness Card Denies chest pain, Denies leg edema, Denies lightheadedness, Denies palpitations, Denies dyspnea and Denies dyspnea on exertion Resp Denies cough, Denies dyspnea and Denies dyspnea on exertion GI Denies hematochezia Musc Denies abnormal gait, Denies muscle weakness, Denies numbness, Denies radiating pain into limb and Denies tingling Neuro Denies abnormal gait, Denies dizziness, Denies frequent falls, Denies numbness, Denies tingling and Denies weakness Endo Denies fatigue and Denies palpitations Physical Exam Vital Signs: Last Vital Signs Pulse 74 12/22/24 09:23 BP 130/70 12/22/24 09:23 BMI result Body Mass Index 34.1 Const General: comfortable and no acute distress Orientation/consciousness: patient oriented x3 HEENT Other: Unremarkable Head: Yes normal to inspection Neck Neck: Yes normal visual inspection Chest Chest palpation & inspection: normal inspection of the chest Resp Auscultation: clear to auscultation bilaterally Cardio Palpation: normal PMI Heart sounds: S1 normal heart sound present, S2 normal heart sound present, no gallops, no murmurs and no rubs GI Palpation (GI): Soft to palpation Back/Spine/Pelvis Other: unremarkable Skin General skin exam: no rashes or lesions noted Neuro General: patient oriented x3 Extrem General: Yes normal to inspection Psych Mental Status: mental status grossly normal Office Procedures EKG Details: EKG with underlying sinus rhythm at 74/Min; no ischemic changes; [place]. [id number], Complete Assessment & Plan Assessment & Plan (1) Heart palpitations: Code(s): R00.2 - Palpitations Category: Medical Plan EKG with underlying sinus rhythm at 72/Min; no ischemic changes; normal FL and corrected QT. In the one day Holter, underlying rhythm is sinus with an average rate of 82/Min. Rare supraventricular ectopy. Otherwise unremarkable. However, patient states she did not have any symptoms during that one day. Overall, palpitations of uncertain etiology. Possible sinus tachycardia. Less likely atrial arrhythmias but will need to be excluded. We will start with an echocardiogram and a 14 day Holter monitor. Based on the findings, we can plan further care. Discussion Notes I discussed with the patient the need for a longer monitoring period using a 14-day Holter monitor to better capture any episodes of tachycardia. We also talked about performing an echocardiogram to assess the heart's structure and function. Patient was informed and verbally consented to the use of an ambient scribe for clinic note documentation during this visit. Orders: Orders ECG 14 day holter monitor Today R00.2 - Palpitations CA echo transthoracic complete Today R00.2 - Palpitations Patient Instructions: - Wear the 14-day Holter monitor as instructed to capture heart activity. - Attend the scheduled echocardiogram appointment. Coding Level of Care Code New Pt Level 3 (88771) Diagnoses Heart palpitations R00.2 CPT Codes EKG - CPT: 23792-[id number], Complete ([id number])
[2024-12-22 09:23] VITALS: BP 130/70; PULSE 74; BMI 34.1
== END 2024-12-22 09:46 | disposition home or self-care (01) ==
LOC: HO.HCS 09:16
PROVIDERS: PCP Internal Medicine; Visit Provider Internal Medicine
DX: R00.2 Palpitations (principal)
CPT/HCPCS: 93010; 99203

== ENCOUNTER → 2024-12-22 09:15 | Outpatient (BNVA) | payer OTHER, SELFPAY | PROVIDERS: PCP Internal Medicine; Visit Provider Internal Medicine | DX: R00.2 Palpitations (principal) | CPT/HCPCS: 93005; 99202 ==

== ENCOUNTER → 2025-01-27 10:38 | Outpatient (REF) | payer OTHER, SELFPAY ==
--- NOTE | 2025-01-27 10:42 | HM_ITS ---
* Total monitoring time 14 days. * Underlying rhythm is sinus with an average rate of 84/Min. * Rare supraventricular ectopy. * Rare ventricular ectopy. One episode of 4 beats. * No significant pauses or high-grade AV blocks. * No patient markers or diary events. MTDD
--- NOTE | 2025-01-27 10:42 | CA_ITS ---
Transthoracic Echocardiogram Patient (Last, First, Middle): Irais Ibrahim E Gender: Female Date of : 1985 Age: 39 Procedure Date: 01/27/2025 Procedure Type: Transthoracic Echocardiogram Location: OP Height: 165.1 cm Weight: 88.45 kg BSA: 1.96 m2 Heart Rate: bpm BP: 130 / 70 mmHg Welder Plasma Arc: CP/JO-ANN Referring MD: Ralph Sampson MD Symptoms: R00.2 - Palpitations Study Quality: Adequate ECG Rhythm: Sinus Conclusions: - The left ventricular systolic function is normal. The calculated ejection fraction is 59% by biplane method. - No obvious valvular pathology seen on this study. Findings Left Ventricle Normal left ventricular cavity size. There is normal left ventricular wall thickness. The left ventricular systolic function is normal. The calculated ejection fraction is 59% by biplane method. There is no evidence of regional wall motion abnormalities. Diastolic function is normal for age. Right Ventricle Normal right ventricular cavity size and systolic function. Atria Both atria are normal in size. Aortic Valve There is a normal trileaflet aortic valve. There is no aortic valve stenosis. There is no aortic valve regurgitation. Mitral Valve The mitral valve appears normal. There is no mitral valve regurgitation. There is no mitral valve stenosis. Pulmonic Valve The pulmonic valve is likely normal. Tricuspid Valve There is mild tricuspid valve regurgitation. There is no evidence of pulmonary hypertension. Great Vessels The asc aorta is normal in size. Venous The inferior vena cava is normal in size and collapses greater than 50% with inspiration. Pericardium/Pleural There is no evidence of pericardial effusion. Prior Study Comparison No significant change compared to prior study dated: 06/30/2021. Recommendations, Care & Conclusions No obvious valvular pathology seen on this study. Measurements 2D Linear Measurements IVSd: 0.85 0.6-0.9/0.6-1.0 cm LVIDd: 5.07 3.9-5.3/4.2-5.9 cm LVIDd Index: 2.59 2.4-3.2/2.2-3.1 cm/m2 LVIDs: 3.59 2.0-3.6 cm LVPWd: 0.88 0.7-1.1 cm Ao Root: 2.90 2.1-3.5 cm LA Diam: 3.00 2.7-3.8/3.0-4.0 cm LAIDs Index: 1.53 1.5-2.3 cm/m2 LV Mass: 190.32 67-162/88-224 g LV Mass Index: 97.10 43-95/49-115 g/m2 LVOT Diam: 2.10 3.0+(-)1.3 cm 2D Systolic Function EF 4C: 55.60 >55% EF 2C: 59.80 >55% EF BiP: 58.80 >55% Mitral Valve MV Pk E: 0.87 MV PK A: 0.68 MV Decel Time: 156.00 E/A: 1.30 E'Lateral: 12.60 E'Medial: 7.94 E/E' Med: 11.00 E/E' Lat: 6.90 PHT: 46.00 MVA PHT: 4.78 Decel Gage: 5.61 Aortic Valve AoV Pk Toby: 1.40 AoV Mn Toby: 0.98 AoV VTI: 0.27 AoV Pk Grad: 8.00 Aov Mn Grad: 4.00 LEONOR Cont.VTI: 2.69 LVOT LVOT Pk Toby: 1.10 LVOT Mn Toby: 0.75 LVOT VTI: 0.21 LVOT Pk Grad: 5.00 LVOT Mn Grad: 3.00 LVOT Diam: 2.10 LVOT Area: 3.46 Diastolic Function MV Pk E: 0.87 MV Pk A: 0.68 E/A: 1.30 E'Medial: 7.94 E/E' Med: 11.00 E' Laterial: 12.60 E/E' Lat: 6.90 Right Ventricle TAPSE (mm): 20.00 TVS' Toby: 11.40 Tricuspid Valve TR Pk Toby: 2.06 TR Pk Grad: 17.00 RA Press: 3.00 RVSP: 20.00 Great Vessels Aorta Ao Root-2D: 2.90 2.0-3.7 cm Ao Asc: 2.90 2.1-3.4 cm Pulmonary Valve PV Pk Toby: 0.79 Peak PV Grad: 2.00 Updated in Other Vendor System with Status of Final Ralph Sampson MD electronically signed on 01/29/2025 3:21:12 PM with status of Final
== END ==
LOC: HO.CARD 10:38
PROVIDERS: PCP Internal Medicine; Visit Provider Internal Medicine
DX: R00.2 Palpitations (principal)
CPT/HCPCS: 93246; 93306

== ENCOUNTER → 2025-01-27 10:42 | Outpatient (BNV) | payer OTHER, SELFPAY | PROVIDERS: PCP Internal Medicine; Visit Provider Internal Medicine | DX: R00.2 Palpitations (principal) | CPT/HCPCS: 93306 ==

== ENCOUNTER 2025-02-17 10:18 | Outpatient (REF) | payer OTHER, SELFPAY ==
[2025-02-17 10:57] LABS: MANUAL DIFF FLAG NO
[2025-02-17 12:20] LABS: Hematocrit 41.9 % (37.0-47.0); Hemoglobin 13.6 g/dl (12.0-16.0); Imm Gran Abs Auto 0.01 X10*3/uL (0.00-0.03); Imm Gran Pct Auto 0.2 % (0.0-0.4); Lymphocytes Absolute Auto 2.4 X10*3/uL (1.2-4.9); Mean Corpuscular HGB Conc 32.5 g/dl (31.0-35.0); Mean Corpuscular Hemoglobin 27.9 pg (27.0-33.0); Mean Corpuscular Volume 85.9 fL (80.0-98.0); NRBC Abs Auto 0.000 X10*3/uL (0.0-0.012); NRBC Pct Auto 0.0 /100WBC (0.0-0.2); Platelet Count 253 X10*3/uL (160-400); Red Blood Count 4.88 X10*6/uL (4.20-5.50); White Blood Count 6.3 X10*3/uL (4.8-10.8)
[2025-02-17 12:46] LABS: Alanine Aminotransferase 11 U/L (0-31); Albumin Level 4.4 g/dL (3.5-5.0); Alkaline Phosphatase 54 U/L (39-117); Anion Gap 10 (12-20); Aspartate Amino Transferase 21 U/L (5-31); Blood Urea Nitrogen 15 mg/dL (9-16); Calcium 8.9 mg/dL (8.4-10.2); Carbon Dioxide 25 mmol/L (22-29); Chloride 106 mmol/L (96-108); Estimated Glomerular Filt Rate > 60; Potassium 4.0 mmol/L (3.3-5.1); Sodium 137 mmol/L (135-145); Total Protein 8.0 g/dL (6.5-8.0)
[2025-02-17 13:05] LABS: HBS Num1 16.31 mIU/mL (0-7.99); HBc Num1 0.16 S/CO (0.00-0.79); HBsAGNum1 0.48 S/CO (0.00-0.99); Hepatitis A Antibody IgM 0.22 Index (0-0.79); Hepatitis B Surface Antigen Negative (Negative); ~HepC Num1 0.93 S/CO (0.00-0.79); ~Hepatitis A Antibody IgM Nonreactive (Nonreactive); ~Hepatitis B Surface Antibody REACTIVE (Nonreactive)
[2025-02-17 14:44] LABS: ~HepC Num2 1.07; ~HepC Num3 1.05; ~Hepatitis C Antibody REACTIVE (Nonreactive)
[2025-02-18 15:49] LABS: Hepatitis B Viral DNA Qn - cp NOT DETECTED Log IU/mL (NOT DETECTED); Hepatitis B Viral DNA Qn-IU/mL NOT DETECTED (NOT DETECTED)
[2025-02-19 14:53] LABS: HCV Log PCR <1.18 NOT DETECTED Log IU/mL (NOT DETECTED); HepC Viral Load <15 NOT DETECTED IU/mL (NOT DETECTED)
[2025-02-19 22:28] LABS: TS Negative Control Passed; TS Panel A 1; TS Panel B 0; TS Positive Control Passed; TSpotTB Negative (Negative)
[2025-02-22 17:23] LABS: Vitamin D 25-OH, D2 <4 ng/mL; Vitamin D 25-OH, D3 11 ng/mL; Vitamin D 25-OH, Total 11 ng/mL (30-100)
== END 2025-02-17 10:19 | disposition home or self-care (01) ==
LOC: HO.LAB 10:18
PROVIDERS: PCP Internal Medicine; Visit Provider Student in an Organized Health Care Education/Training Program
DX: M05.9 Rheumatoid arthritis with rheumatoid factor, unspecified (principal); E55.9 Vitamin D deficiency, unspecified; Z11.1 Encounter for screening for respiratory tuberculosis; Z11.59 Encounter for screening for other viral diseases
CPT/HCPCS: 36415; 80053; 80145; 82306; 83520; 85025; 85652; 86140; 86481; 86704; 86706; 86709; 86803; 87340; 87517; 87522

== ENCOUNTER 2025-02-26 08:29 | Outpatient (AMB) | payer OTHER, SELFPAY ==
--- NOTE | 2025-02-26 08:31 | MHC.OFFVIS ---
Vital Signs 02/26/25 08:39 Height 5 ft 5 in Weight 193 lb 12.581 oz BMI 32.2 BP 142/90 H Blood Pressure Location Rt brachial Position Sitting Pulse 84 Pulse Source Pulse Oximeter Pulse Oximetry (%) 98 Oxygen Delivery Method Room Air Intake Visit Reasons: RA Intake Note: Patient presents for RA follow up. Surgical Elastic Knitter Hand Frame Required: Yes Surgical Elastic Knitter Hand Frame Language: Health Outcomes Liaison Services: Surgical Elastic Knitter Hand Frame Present Surgical Elastic Knitter Hand Frame Name: Mahamed [id number] Information Interpreted: non-clinical & clinical Allergies No Known Allergies (No Known Allergies*) Allergy (Verified 02/26/25 08:38) Medication List - Last Reconciled 02/26/25 by Lyudmila Cummins MD adalimumab (Humira(CF) Pen) 40 mg (0.4 mL) subcut QWEEK cholecalciferol (vitamin D3) 50,000 units PO QWEEK 90 days cyclobenzaprine 10 mg PO BEDTIME PRN 14 days diclofenac sodium 1% 0.5 grams transdermal TID 30 days docusate sodium 100 mg PO BID enalapril maleate 10 mg PO DAILY 90 days hydroxychloroquine 200 mg PO BID ibuprofen 400 mg PO Q6H PRN inulin 2 grams PO DAILY naproxen 500 mg PO Q12H PRN pantoprazole 40 mg PO DAILY 90 days sucralfate 10 mL PO BID sumatriptan succinate 50 mg PO Q2-4H PRN 30 days tirzepatide (weight loss) (Zepbound) 10 mg (0.5 mL) subcut QWEEK tramadol 50 mg PO BID 30 days Held on 05/05/24. Instructions: Doctor's Order HPI Comments Details: Patient is a 39-year-old female with morbid obesity status post laparoscopic sleeve gastrectomy, migraines, GERD, hypertension, and seropositive rheumatoid arthritis here today for follow up Interval History: Patient last seen 10/19/24 with me - On Humira every 2 weeks and Hydroxychloroquine 200mg bid - Worsening pain and stiffness - Does not feel the Humira is working anymore - Frequency of Humira dose increased Today - Humira 40mg SC every week and Hydroxychloroquine 200mg bid - Last ophthal appt - Doing well on the new regimen - Complaining of right elbow pain and right wrist pain Rheumatologic History: Onset 2018 -ve RF +CCP HCQ started. Eye exam OK 03/2020, 07/2022. Cimzia added 12/23/[address] of Cimzia due to insurance preference 04/[address] Enbrel due to ineffectiveness Initial history: Patient reports joint pain everywhere that began approx 1 year ago. States that pain is diffuse but is worse in her hands, shoulders and knees. Has pain daily that is worse in the morning. Has diffuse morning stiffness that can last up to 30 minutes, states that her hands will cramp in the morning. Has numbness in her fingertips occasionally that is worse in the morning. Pain is present with rest and activity. Reports some swelling in her hands. Using Flexeril and Tramadol for pain, states that the Flexeril helps her back pain but Tramadol causes nausea. Has tried Tylenol and Ibuprofen but states that they do not help. + oral ulcers Pt denies Raynauds, photosensitivity, nasal ulcers, Sicca symptoms, fevers, alopecia. Mother has RA and SLE. Sister with Fibromyalgia Current Rheumatology Medication(s): Humira 40 mg SC week Plaquenil 200 mg b.i.d. [facility] Medical History De Quervain's tenosynovitis, right Low back pain Liver fibrosis Hepatomegaly Nausea Hyperparathyroidism BMI 34.0-34.9,adult BMI 35.0-35.9,adult BMI 36.0-36.9,adult H. pylori infection Hypovitaminosis D Morbid obesity Hypoparathyroidism Rheumatoid arthritis Obese Hypocalcemia Essential hypertension GERD (gastroesophageal reflux disease) Transaminitis ELEAZAR positive Seropositive rheumatoid arthritis Migraines Surgical History S/P laparoscopic sleeve gastrectomy Hx laparoscopic cholecystectomy History of appendectomy Family History Father CAD (coronary artery disease) Mother Rheumatoid arthritis Lupus Hypertension Brother No problems noted. Sister No problems noted. Sister No problems noted. Sister No problems noted. 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 to a significant other at home: Yes ( amputee) Do you presently have visiting nurse or other home services: No Alcohol intake: never Patient Tobacco Use Status: Never used Tobacco e-Cigarette/Vaping Use: Never Used Second Hand Smoke Exposure: No service: No Current occupational status: employed Current occupational exposures/hazards: No Cognitive needs: No Hearing needs: No Vision needs: No Review of Systems Const Details: Review of Systems Constitutional: Denies fever, chills, weight loss ENT: Denies vision changes, eye pain or eye redness, dental caries, dry mouth GI: Denies nausea, vomiting, diarrhea, abdominal pain, change in BM Pulm: Denies SOB, ALMANZAR, hemoptysis, wheezing Cards: Denies chest pain, palpitations Skin: Denies Raynaud's, rash, nail changes, photosensitivity, [employer] DEAN: Denies headaches, weakness, paresthesias, recurrent falls MSK: as per HPI All other systems reviewed and are unremarkable except noted above Physical Exam Exam Exam: Vital signs reviewed Physical Examination CONSTITUITIONAL Patient alert and cooperative. Well appearing and in no apparent painful distress HEENT Conjunctiva and sclera clear. No lymphadenopathy. CHEST/RESPIRATORY SYSTEM Normal respiratory effort and able to speak in complete sentences. Clear to auscultation bilaterally. No crackles, rales, rhonchi, wheezes heard. CARDIAC SYSTEM Regular rate and rhythm. S1 and S2 heard no murmurs. Radial pulses intact bilaterally MSK Hands Right Hand: Able to make a fist. No swelling or tenderness to palpation of the MCPs, PIPs or DIPs. No deformities noted. Left Hand: Able to make a fist. No swelling or tenderness to palpation of the MCPs, PIPs or DIPs. No deformities noted. Wrists Right Wrist: Full ROM to flexion and extension. No swelling or TTP. Positive Amy's test Left Wrist: Full ROM to flexion and extension. No swelling or TTP Elbows Right Elbow: Full ROM. No swelling or TTP. No TTP of the medial epicondyle. TTP of the lateral epicondyle Left Elbow: Full ROM. No swelling or TTP. No TTP of the medial epicondyle. No TTP of the lateral epicondyle Shoulders Right shoulder: Full ROM. No swelling noted. No TTP of the AC joint. No TTP of the subacromial bursa. No TTP of the posterior shoulder Left shoulder: Full ROM. No swelling noted. No TTP of the AC joint. No TTP of the subacromial bursa. No TTP of the posterior shoulder Knees Right knee: Full ROM. No swelling noted. No TTP of the knee joint line. No TTP of pes anserine bursa Left knee: Full ROM. No swelling noted. No TTP of the knee joint line. No TTP of pes anserine bursa. Ankles Right ankle: Good ankle dorsiflexion and plantar flexion. No swelling. No TTP of the ankle joint Left ankle: Good ankle dorsiflexion and plantar flexion. No swelling. No TTP of the ankle joint Feet Right foot: Negative squeeze test Left foot: Negative squeeze test Tender points? No tenderness to palpation of the bilateral trapezius, supraspinatus, anterior costochondral junctions, bilateral suboccipital muscle insertions SKIN No rashes Vital Signs: Last Vital Signs Pulse 84 02/26/25 08:39 BP 142/90 H 02/26/25 08:39 Pulse Ox 98 02/26/25 08:39 Oxygen Delivery Method Room Air 02/26/25 08:39 BMI result Body Mass Index 32.2 Results Reviewed Results Reviewed: Laboratory Tests 02/17/25 10:55 WBC 6.3 RBC 4.88 Hgb 13.6 Hct 41.9 Plt Count 253 ESR 17 Sodium 137 Potassium 4.0 Chloride 106 Carbon Dioxide 25 BUN 15 Creatinine 0.81 AST 21 ALT 11 C-Reactive Protein 0.16 25-OH Vitamin D Total 11 L Rheumatology Labs 11/25/19 10:32 Rheumatoid Factor < 15.0 Cycl Citrul Peptide IgG 42 H Infectious serologies 02/17/25 10:55 Hepatitis A IgM Ab Nonreactive Hep Bs Antigen Negative Hep Bs Antibody REACTIVE Hep B Core Total Ab Nonreactive Hep B DNA copies/mL NOT DETECTED Hep C Viral Load <15 NOT DETECTED TB Test (T-Spot) Com Negative Assessment & Plan Assessment & Plan (1) Seropositive rheumatoid arthritis: Comment: Onset 2018 -ve RF +CCP HCQ started. Eye exam OK 03/2020, 07/2022. Cimzia added 12/23/[address] of Cimzia due to insurance preference 04/[address] Enbrel due to ineffectiveness 09/2024 Humira increased to weekly Code(s): M05.9 - Rheumatoid arthritis with rheumatoid factor, unspecified Category: Medical Plan: #Seropositive RA Patient is a 39-year-old female with seropositive rheumatoid arthritis here today for follow up. Currently on Humira everyweek and hydroxychloroquine twice a day. Improvement in her exam and symptoms. Plan - Humira 40mg SC every week - Plaquenil 200mg bid - RTC 6 months - Labs before visit: CBC, CMP, ESR, CRP (2) Right lateral epicondylitis: Code(s): M77.11 - Lateral epicondylitis, right elbow Plan: #Right lateral epicondylitis Patient complainign of right elbow pain. Exam consistent with lateral epicondylitis Recommended topical diclofenac qid for 6 weeks (3) De Quervain's tenosynovitis, right: Code(s): M65.4 - Radial styloid tenosynovitis [de Quervain] Category: Medical Plan: #De Quervain's Tenosynovitis, Right Recommending splinting (4) Encounter for monitoring of hydroxychloroquine therapy: Code(s): Z51.81 - Encounter for therapeutic drug level monitoring; Z79.899 - Other nursing home (current) drug therapy Category: Medical Plan: #Long-term Use of Hydroxychloroquine Discussed with patient the risks and benefits of hydroxychloroquine in managing the rheumatic condition Benefits include: - Reduced pain, reduce mortality, maintenance of remission and reduction of flares Risks include: - GI upset, skin hyperpigmentation, retinal toxicity (especially after more than 5 years of use), myopathy Advised yearly ophthalmology visits Last ophthalmology visit: 1 year ago, encouraged follow up (5) Encounter for monitoring of adalimumab therapy: Code(s): Z51.81 - Encounter for therapeutic drug level monitoring; Z79.620 - assisted (current) use of immunosuppressive biologic Plan: #Long-term Use of TNF Inhibitors: Adalimumab Discussed with the patient the benefits and risks of TNF inhibitors for the management of the rheumatic condition Benefits include reduce pain, maintenance of remission and reduction of flares as well as ?progression of the disease Risks include injection sites/infusion reactions, serious infections (such as bacterial infections, opportunistic infections), malignancy, delaminating syndromes, autoimmune phenomena, CHF exacerbations, palmar plantar psoriasis and cytopenias Recommended rotating injection sites, and holding medication during and for up to 1 week after resolution of a febrile illness or open skin wound Plan I spent 30 minutes reviewing the record and labs, taking a history, examining the patient, discussing the treatment plan, ordering diagnostic work up and documenting in the medical record Medications: Changed From cholecalciferol (vitamin D3) 250 mcg PO QWEEK 90 days 13 caps 1RF E55.9 - Vitamin D deficiency, unspecified To cholecalciferol (vitamin D3) 50,000 units PO QWEEK 3 caps 1RF 90 days E55.9 - Vitamin D deficiency, unspecified Refilled hydroxychloroquine 200 mg PO BID 60 tabs 5RF M05.9 - Rheumatoid arthritis with rheumatoid factor, unspecified adalimumab (Humira(CF) Pen) 40 mg (0.4 mL) subcut QWEEK 4 ea 5RF M05.9 - Rheumatoid arthritis with rheumatoid factor, unspecified Coding Level of Care Code Est Pt Level 4 (85333) Complex EM visit Add On G2211 Diagnoses Seropositive rheumatoid arthritis M05.9 Right lateral epicondylitis M77.11 De Quervain's tenosynovitis, right M65.4 Encounter for monitoring of hydroxychloroquine therapy Z51.81; Z79.899 Encounter for monitoring of adalimumab therapy Z51.81; Z79.620
[2025-02-26 08:39] VITALS: BP 142/90; PULSE 84; O2SAT 98; BMI 32.2
== END 2025-02-26 09:13 | disposition home or self-care (01) ==
LOC: HO.RHES 08:30
PROVIDERS: PCP Internal Medicine; Visit Provider Student in an Organized Health Care Education/Training Program
DX: M05.9 Rheumatoid arthritis with rheumatoid factor, unspecified (principal); M77.11 Lateral epicondylitis, right elbow; M65.4 Radial styloid tenosynovitis [de Quervain]; Z51.81 Encounter for therapeutic drug level monitoring; Z79.899 Other long term (current) drug therapy; Z79.620 Long term (current) use of immunosuppressive biologic
CPT/HCPCS: 99214

== ENCOUNTER → 2025-02-26 08:29 | Outpatient (BNVA) | payer OTHER, SELFPAY | PROVIDERS: PCP Internal Medicine; Visit Provider Student in an Organized Health Care Education/Training Program | DX: M77.11 Lateral epicondylitis, right elbow (principal); M05.9 Rheumatoid arthritis with rheumatoid factor, unspecified; E55.9 Vitamin D deficiency, unspecified; M25.561 Pain in right knee; M25.562 Pain in left knee | CPT/HCPCS: 99212 ==

== ENCOUNTER 2025-03-08 10:11 | Outpatient (AMB) | payer OTHER, SELFPAY ==
--- NOTE | 2025-03-08 10:06 | MHC.OFFVISWM ---
VS Expanded 03/08/25 10:12 Height 5 ft 5 in Weight 180 lb BMI 30.0 Intake Visit Reasons: TELEPHONE PO LSG 08/31/21 Assistant Signal Maintainer Required: Yes Assistant Signal Maintainer Name: Federico Rick Information Interpreted: clinical only Allergies No Known Allergies (No Known Allergies*) Allergy (Verified 02/26/25 08:38) Medication List - Last Reconciled 03/08/25 by RAEGAN Salas adalimumab (Humira(CF) Pen) 40 mg (0.4 mL) subcut QWEEK cholecalciferol (vitamin D3) 50,000 units PO QWEEK 90 days cyclobenzaprine 10 mg PO BEDTIME PRN 14 days diclofenac sodium 1% 0.5 grams transdermal TID 30 days docusate sodium 100 mg PO BID enalapril maleate 10 mg PO DAILY 90 days hydroxychloroquine 200 mg PO BID ibuprofen 400 mg PO Q6H PRN inulin 2 grams PO DAILY naproxen 500 mg PO Q12H PRN pantoprazole 40 mg PO DAILY 90 days sucralfate 10 mL PO BID sumatriptan succinate 50 mg PO Q2-4H PRN 30 days tirzepatide (weight loss) (Zepbound) 7.5 mg (0.5 mL) subcut QWEEK tramadol 50 mg PO BID 30 days Held on 05/05/24. Instructions: Doctor's Order HPI Comments Details: This?is a?39?yo F who is s/p LSG 08/31/2021. Presents for 3.5 year post op visit. Weight at last visit on 12/03/2024 was 200 pounds with a BMI of 33.3. Weight today is 180 pounds, representing a 20 pound weight loss with a BMI today of 30.? No complaints of nausea, emesis, abdominal pain or reflux, or constipation. On Zepbound 7.5mg, starting this week. Present meal plan includes: RightBMI plan- using protein bars, shakes; one meal per day does not feel hungry, likes the plan Exercise routine includes: struggles with sciatica, pinched nerve walking is comfortable [facility] Medical History De Quervain's tenosynovitis, right Low back pain Liver fibrosis Hepatomegaly Nausea Hyperparathyroidism BMI 34.0-34.9,adult BMI 35.0-35.9,adult BMI 36.0-36.9,adult H. pylori infection Hypovitaminosis D Morbid obesity Hypoparathyroidism Rheumatoid arthritis Obese Hypocalcemia Essential hypertension GERD (gastroesophageal reflux disease) Transaminitis ELEAZAR positive Seropositive rheumatoid arthritis Migraines Surgical History S/P laparoscopic sleeve gastrectomy Hx laparoscopic cholecystectomy History of appendectomy Family History Father CAD (coronary artery disease) Mother Rheumatoid arthritis Lupus Hypertension Brother No problems noted. Sister No problems noted. Sister No problems noted. Sister No problems noted. 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 health care attorney to a significant other at home: Yes ( amputee) Do you presently have visiting nurse or other home services: No Alcohol intake: never Patient Tobacco Use Status: Never used Tobacco e-Cigarette/Vaping Use: Never Used Second Hand Smoke Exposure: No service: No Current occupational status: employed Current occupational exposures/hazards: No Cognitive needs: No Hearing needs: No Vision needs: No Telehealth Telehealth Telehealth Platform: Telephone Location of provider rendering services: other Location of patient: address on file Patient Identification confirmed using: Name, : Yes Telehealth method: voice only Patient verbally consented to treatment: Yes Patient verbally consented to billing insurance company: Yes Patient informed of any privacy concerns related to visit: Yes Minutes spent on Phone/Video with Pt.: 17 Assessment & Plan Assessment & Plan (1) S/P laparoscopic sleeve gastrectomy: Comment: 08/31/21 Code(s): Z98.84 - Bariatric surgery status Category: Surgical (2) Obese: Code(s): E66.9 - Obesity, unspecified Category: Medical Plan Pt to continue on Zepbound and RightBMI meal plan. She would like to increase to 10mg at next refill (stayed at same dose for last refill due to supply issues). RTC 4mo.
== END 2025-03-08 10:28 | disposition home or self-care (01) ==
LOC: HO.HBS 10:11
PROVIDERS: PCP Internal Medicine; Visit Provider Physician Assistant Surgical
DX: E66.9 Obesity, unspecified (principal); Z68.30 Body mass index [BMI] 30.0-30.9, adult; Z90.3 Acquired absence of stomach [part of]; Z98.84 Bariatric surgery status
CPT/HCPCS: 98013

== ENCOUNTER 2025-03-29 13:03 | Outpatient (AMB) | payer OTHER, SELFPAY ==
--- NOTE | 2025-03-29 13:08 | MHC.OFFVIS ---
Vital Signs 03/29/25 13:09 Height 5 ft 5 in Weight 188 lb 11.451 oz BMI 31.4 BP 120/76 Blood Pressure Location Lt brachial Position Sitting Pulse 81 Pulse Source Pulse Oximeter Intake Visit Reasons: s/p echo/ holter HS Automatic Vulcanizing Lead Operator Required: Yes Automatic Vulcanizing Lead Operator Language: Process Control Supervisor Name: benji [id number] Mahamed Accompanied by: Self / Same As Patient Allergies No Known Allergies (No Known Allergies*) Allergy (Verified 03/29/25 13:11) Medication List - Last Reconciled 03/30/25 by JAZ McC adalimumab (Humira(CF) Pen) 40 mg (0.4 mL) subcut QWEEK cholecalciferol (vitamin D3) 50,000 units PO QWEEK 90 days cyclobenzaprine 10 mg PO BEDTIME PRN 14 days diclofenac sodium 1% 0.5 grams transdermal TID 30 days docusate sodium 100 mg PO BID enalapril maleate 10 mg PO DAILY 90 days hydroxychloroquine 200 mg PO BID ibuprofen 400 mg PO Q6H PRN inulin 2 grams PO DAILY naproxen 500 mg PO Q12H PRN pantoprazole 40 mg PO DAILY 90 days sumatriptan succinate 50 mg PO Q2-4H PRN 30 days tirzepatide (weight loss) (Zepbound) 10 mg (0.5 mL) subcut QWEEK tramadol 50 mg PO BID 30 days Held on 05/05/24. Instructions: Doctor's Order HPI HPI s/p echo/ holter HS: Details: Irais is a 39 year old female with PMH of HTN, who is being evaluated for heart palpitations and recently underwent a holter monitor and echocardiogram and now presents for follow up. Today she reports ths has been feeling well with no concerning symptoms. Her last heart palpitations occurred 3 months ago. Around that tiime she recalls having a few episodes of rapid heart beating lasting 1 minute and resolving. She had no know triggers to these events. Does not get chest pains, shortness of breath, lightheadedness. Reports good activity tolerance. Takes meds as directed. HPI Comments Details: Patient is a 39-year-old female with morbid obesity status post laparoscopic sleeve gastrectomy, migraines, GERD, hypertension, and seropositive rheumatoid arthritis here today for follow up Interval History: Patient last seen 10/19/24 with me - On Humira every 2 weeks and Hydroxychloroquine 200mg bid - Worsening pain and stiffness - Does not feel the Humira is working anymore - Frequency of Humira dose increased Today - Humira 40mg SC every week and Hydroxychloroquine 200mg bid - Last ophthal appt - Doing well on the new regimen - Complaining of right elbow pain and right wrist pain Rheumatologic History: Onset 2018 -ve RF +CCP HCQ started. Eye exam OK 03/2020, 07/2022. Cimzia added 12/23/[address] of Cimzia due to insurance preference 04/[address] Enbrel due to ineffectiveness Initial history: Patient reports joint pain everywhere that began approx 1 year ago. States that pain is diffuse but is worse in her hands, shoulders and knees. Has pain daily that is worse in the morning. Has diffuse morning stiffness that can last up to 30 minutes, states that her hands will cramp in the morning. Has numbness in her fingertips occasionally that is worse in the morning. Pain is present with rest and activity. Reports some swelling in her hands. Using Flexeril and Tramadol for pain, states that the Flexeril helps her back pain but Tramadol causes nausea. Has tried Tylenol and Ibuprofen but states that they do not help. + oral ulcers Pt denies Raynauds, photosensitivity, nasal ulcers, Sicca symptoms, fevers, alopecia. Mother has RA and SLE. Sister with Fibromyalgia Current Rheumatology Medication(s): Humira 40 mg SC week Plaquenil 200 mg b.i.d. [facility] Medical History De Quervain's tenosynovitis, right Low back pain Liver fibrosis Hepatomegaly Nausea Hyperparathyroidism BMI 34.0-34.9,adult BMI 35.0-35.9,adult BMI 36.0-36.9,adult H. pylori infection Hypovitaminosis D Morbid obesity Hypoparathyroidism Rheumatoid arthritis Obese Hypocalcemia Essential hypertension GERD (gastroesophageal reflux disease) Transaminitis ELEAZAR positive Seropositive rheumatoid arthritis Migraines Surgical History S/P laparoscopic sleeve gastrectomy Hx laparoscopic cholecystectomy History of appendectomy Family History Father CAD (coronary artery disease) Mother Rheumatoid arthritis Lupus Hypertension Brother No problems noted. Sister No problems noted. Sister No problems noted. Sister No problems noted. 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 critical care cns to a significant other at home: Yes ( amputee) Do you presently have visiting nurse or other home services: No Alcohol intake: never Patient Tobacco Use Status: Never used Tobacco e-Cigarette/Vaping Use: Never Used Second Hand Smoke Exposure: No service: No Current occupational status: employed Current occupational exposures/hazards: No Cognitive needs: No Hearing needs: No Vision needs: No Review of Systems Const Denies daytime sleepiness, Denies difficulty sleeping, Denies snoring, Denies stops breathing during sleep and Denies weakness Card Denies chest pain, Denies rapid heart rate, Denies irregular heart rhythm, Denies claudication, Denies leg edema, Denies lightheadedness, Denies palpitations, Denies dyspnea, Denies dyspnea on exertion, Denies orthopnea, Denies paroxysmal nocturnal dyspnea and Denies slow heart rate Resp Denies cough, Denies dyspnea, Denies dyspnea on exertion and Denies snoring GI Reports no additional complaints, Denies hematochezia, Denies change in stool character and Denies dyspepsia Musc Denies abnormal gait, Denies muscle weakness and Denies numbness Neuro Denies abnormal gait, Denies numbness and Denies weakness Endo Denies palpitations Physical Exam Exam Exam: Vital signs reviewed Physical Examination CONSTITUITIONAL Patient alert and cooperative. Well appearing and in no apparent painful distress HEENT Conjunctiva and sclera clear. No lymphadenopathy. CHEST/RESPIRATORY SYSTEM Normal respiratory effort and able to speak in complete sentences. Clear to auscultation bilaterally. No crackles, rales, rhonchi, wheezes heard. CARDIAC SYSTEM Regular rate and rhythm. S1 and S2 heard no murmurs. Radial pulses intact bilaterally MSK Hands Right Hand: Able to make a fist. No swelling or tenderness to palpation of the MCPs, PIPs or DIPs. No deformities noted. Left Hand: Able to make a fist. No swelling or tenderness to palpation of the MCPs, PIPs or DIPs. No deformities noted. Wrists Right Wrist: Full ROM to flexion and extension. No swelling or TTP. Positive Amy's test Left Wrist: Full ROM to flexion and extension. No swelling or TTP Elbows Right Elbow: Full ROM. No swelling or TTP. No TTP of the medial epicondyle. TTP of the lateral epicondyle Left Elbow: Full ROM. No swelling or TTP. No TTP of the medial epicondyle. No TTP of the lateral epicondyle Shoulders Right shoulder: Full ROM. No swelling noted. No TTP of the AC joint. No TTP of the subacromial bursa. No TTP of the posterior shoulder Left shoulder: Full ROM. No swelling noted. No TTP of the AC joint. No TTP of the subacromial bursa. No TTP of the posterior shoulder Knees Right knee: Full ROM. No swelling noted. No TTP of the knee joint line. No TTP of pes anserine bursa Left knee: Full ROM. No swelling noted. No TTP of the knee joint line. No TTP of pes anserine bursa. Ankles Right ankle: Good ankle dorsiflexion and plantar flexion. No swelling. No TTP of the ankle joint Left ankle: Good ankle dorsiflexion and plantar flexion. No swelling. No TTP of the ankle joint Feet Right foot: Negative squeeze test Left foot: Negative squeeze test Tender points? No tenderness to palpation of the bilateral trapezius, supraspinatus, anterior costochondral junctions, bilateral suboccipital muscle insertions SKIN No rashes Vital Signs: Last Vital Signs Pulse 81 03/29/25 13:09 BP 120/76 03/29/25 13:09 BMI result Body Mass Index 31.4 Const General: cooperative, healthy appearing, comfortable and no acute distress Orientation/consciousness: patient oriented x3 Neck Neck: Yes normal visual inspection Resp Effort & Inspection: normal respiratory effort Auscultation: clear to auscultation bilaterally, no rales, no rhonchi and no wheezes Cardio Rate: regular rate Rhythm: regular rhythm Heart sounds: S1 normal heart sound present, S2 normal heart sound present, no gallops, no murmurs and no rubs Neuro General: patient oriented x3 Extrem General: Yes normal to inspection, No no pedal edema and No calf tenderness Psych Appearance: grossly normal Mental Status: mental status grossly normal Speech and movement: Normal speech and movement present Results Reviewed Results Reviewed: Laboratory Tests 02/17/25 10:55 WBC 6.3 RBC 4.88 Hgb 13.6 Hct 41.9 Plt Count 253 ESR 17 Sodium 137 Potassium 4.0 Chloride 106 Carbon Dioxide 25 BUN 15 Creatinine 0.81 AST 21 ALT 11 C-Reactive Protein 0.16 25-OH Vitamin D Total 11 L Rheumatology Labs 11/25/19 10:32 Rheumatoid Factor < 15.0 Cycl Citrul Peptide IgG 42 H Infectious serologies 02/17/25 10:55 Hepatitis A IgM Ab Nonreactive Hep Bs Antigen Negative Hep Bs Antibody REACTIVE Hep B Core Total Ab Nonreactive Hep B DNA copies/mL NOT DETECTED Hep C Viral Load <15 NOT DETECTED TB Test (T-Spot) Com Negative Assessment & Plan Assessment & Plan (1) Heart palpitations: Code(s): R00.2 - Palpitations Category: Medical Plan: Prior reports of heart palpitations - rapid heart beat lasting less up to a minute, none in last 3 months. EKG done 12/22/24 showed NSR, rate 74, normal CA, QRS, QTc intervals. Echo 01/27/25 with EF 59%, no valve abnormalities or regional wall motion abnormalities. Holter monitor done 01/27/25 for 14 days showed SR, rate range 52- 169, average 84, rare ventricular ectopy, one 4 beat ventricular run. Not likely to have sustained VT in setting of normal EF. Her palpitations more likely to have been sinus tachycardia, atrial tachycardia. Atria are normal size - less likely to have had PAF. - reviewed with her. No palpitations last 3 months. Instructed to call if she has recurrent episodes and then a Cardiac event monitor can be ordered. Cardiology follow up as needed. (2) Essential hypertension: Code(s): I10 - Essential (primary) hypertension Category: Medical Plan: BP goal < 130/80. Well controlled at this time. No med changes made. Plan Time spent on chart review, documentation, interview, assessment Coding Level of Care Code Est Pt Level 3 (39588) Complex EM visit Add On G2211 Diagnoses Heart palpitations R00.2 Essential hypertension I10 Time Spent (min) 24
[2025-03-29 13:09] VITALS: BP 120/76; PULSE 81; BMI 31.4
== END 2025-03-29 13:30 | disposition home or self-care (01) ==
LOC: HO.HCS 13:04
PROVIDERS: PCP Internal Medicine; Visit Provider Nurse Practitioner Family
DX: R00.2 Palpitations (principal); I10 Essential (primary) hypertension
CPT/HCPCS: 99213

== ENCOUNTER → 2025-03-29 13:03 | Outpatient (BNVA) | payer OTHER, SELFPAY | PROVIDERS: PCP Internal Medicine; Visit Provider Nurse Practitioner Family | DX: R00.2 Palpitations (principal); I10 Essential (primary) hypertension; Z79.899 Other long term (current) drug therapy | CPT/HCPCS: 99212 ==